=== PATIENT | female | born 1955 | race Caucasian/White ===

== ENCOUNTER 2019-10-13 14:40 | Outpatient (CLI) | payer OTHER, SELFPAY ==
--- NOTE | ~2019-10-13 | MM_ITS ---
EXAMINATION: MM screening [facility] BI w lul HISTORY: Screening mammogram TECHNIQUE: Craniocaudal and mediolateral oblique 3-D tomosynthesis images were obtained and synthetic 2-D images were generated. CAD analysis was submitted and interpreted. COMPARISON: 08/04/2018, 06/26/2017, 05/29/2016, 04/18/2015 BREAST PARENCHYMAL COMPOSITION: There are scattered areas of fibroglandular density. FINDINGS: Scattered benign-appearing calcifications are present. Also noted is a stable intramammary lymph node in the upper outer quadrant of the right breast. There is no evidence of suspicious mass, calcification, or architectural distortion to suggest malignancy in either breast. There has been no suspicious interval change. IMPRESSION: 1. No mammographic evidence of malignancy. 2. Recommend routine screening mammography in one year. BI-RADS Category 2: Benign finding(s). Reviewed, dictated and finalized at location A. L STAKER
== END 2019-10-13 14:41 | disposition home or self-care (01) ==
LOC: ANHIMG 14:44
PROVIDERS: PCP Internal Medicine; Visit Provider Obstetrics & Gynecology Gynecology
DX: Z12.31 Encounter for screening mammogram for malignant neoplasm of breast (principal)
CPT/HCPCS: 77063; 77067

== ENCOUNTER 2020-11-15 13:32 | Outpatient (CLI) | payer MEDICARE, SELFPAY ==
--- NOTE | ~2020-11-15 | NM_ITS ---
EXAMINATION: NM thyroid scan w uptake DATE: 11/16/2020 14:21 INDICATION: Hyperthyroidism. COMPARISON: Thyroid ultrasound 11/16/2020 TECHNIQUE: 0.349 mCi I-123 was administered orally. Scintigraphic images of the thyroid gland were o btained at 24 hours. Thyroid uptake was calculated by the technologist. FINDINGS: The thyroid uptake is 36% (normal 10-30%), with the right lobe measuring 26% uptake and the left 11%. There is no focal area of decreased or increased activity to suggest hypofunctioning or hyperfunctio dhara nodule. IMPRESSION: 1. Increased 24-hour iodine uptake, consistent with hyperthyroidism. Reviewed, dictated and finalized at location A. RAKE OPERATOR
== END 2020-11-15 13:33 | disposition home or self-care (01) ==
LOC: ANHIMG 13:35
DX: E05.90 Thyrotoxicosis, unspecified without thyrotoxic crisis or storm (principal)
CPT/HCPCS: 78014; A9516

== ENCOUNTER 2020-11-16 12:30 | Outpatient (CLI) | payer MEDICARE, SELFPAY ==
--- NOTE | ~2020-11-16 | US_ITS ---
EXAMINATION: US thyroid DATE: 11/16/2020 13:05 INDICATION: Hyperthyroidism. Goiter. TECHNIQUE: Multiple ultrasound images of the thyroid were obtained. COMPARISON: Neck CTA 03/07/19 FINDINGS: The right thyroid lobe measures 5.6 x 1.3 x 2.0 cm. The left thyroid lobe measures 4.2 x 1.0 x 1.4 c m. The thyroid demonstrates diffusely heterogeneous echogenicity with increased vascularity. In the right thyroid lobe, there is a 1.3 cm solid, isoechoic, wjsiu-fuhz-mqqf nodule with ill-defined jaime n without echogenic foci (TI-RADS TR3). In the left thyroid lobe, there is an 11 mm solid, isoechoic, gmmlx-liyj-chuo nodule with ill-defined margin without echogenic foci (TR3). In the left thyroid nod e lobe, there is a 9 mm solid, isoechoic, jiguf-hlde-pikf nodule with smooth margin without echogenic foci (TR3). IMPRESSION: 1. Heterogeneous thyroid with increased activity, consistent with Graves' disease. 2. Thyroid nodules, likely not clinically significant. No follow-up is needed. Reviewed, dictated and finalized at location A. ND ETL DEVELOPER IMPRESSION: 1. Heterogeneous thyroid with increased activity, consistent with Graves' disea se. 2. Thyroid nodules, likely not clinically significant. No follow-up is needed.
== END 2020-11-16 12:31 | disposition home or self-care (01) ==
DX: E05.90 Thyrotoxicosis, unspecified without thyrotoxic crisis or storm (principal); E04.2 Nontoxic multinodular goiter
CPT/HCPCS: 76536

== ENCOUNTER 2020-11-17 14:29 | Outpatient (CLI) | payer MEDICARE, SELFPAY | END 2020-11-17 14:30 | disposition home or self-care (01) | LOC: ANHCOVIDVC 14:29 | DX: Z23 Encounter for immunization (principal) | CPT/HCPCS: 0001A; 91300 ==

== ENCOUNTER 2020-12-08 14:26 | Outpatient (CLI) | payer MEDICARE, SELFPAY | END 2020-12-08 14:27 | disposition home or self-care (01) | LOC: ANHCOVIDVC 14:26 | DX: Z23 Encounter for immunization (principal) | CPT/HCPCS: 0002A; 91300 ==

== ENCOUNTER 2020-12-30 09:46 | Outpatient (CLI) | payer MEDICARE, SELFPAY ==
--- NOTE | ~2020-12-30 | DEXA_ITS ---
Bone Density Report Name: Ambar Gomes Age: 65 Sex: Female Ethnicity: White Date of : 1955 Indication: postmenopausal osteoporosis; height loss; hysterectomy; rheumatoid arthritis; Referring Provider: MARTHA SHELBY Study: Bone densitometry was performed. Exam Date: December 30, 2020 Accession number: [id number] Bone Density: Region BMD T-score Z-score Classification AP Spine (L1, L3, L4) 0.857 -1.8 0.1 Osteopenia Femoral Neck (Left) 0.539 -2.8 -1.2 Osteoporosis Total Hip (Left) 0.601 -2.8 -1.5 Osteoporosis Total Hip Bilateral Avg 0.607 -2.8 -1.5 Osteoporosis Femoral Neck (Right) 0.620 -2.1 -0.5 Osteopenia Total Hip (Right) 0.613 -2.7 -1.4 Osteoporosis World Health Organization criteria for BMD impression classify patients as: Normal (T-score at or above -1.0), Osteopenia (T-score between -1.0 and -2.5), or Osteoporosis (T-score at or below -2.5). 10-year Fracture Risk: FRAX not reported because: Some T-score for Spine Total or Hip Total or Femoral Neck at or below -2.5 Previous Exams: Region Exam Age BMD T-score BMD Change BMD Change Date g/cm2 vs Baseline vs Previous AP Spine(L1, L3, L4) 12/30/2020 65 0.857 -1.8 -0.038(-4.2%)# 0.029(3.6%)* 08/04/2018 63 0.828 -2.0 -0.067(-7.5%)# 0.018(2.2%)# 10/13/2012 57 0.810 -2.2 -0.085(-9.5%)# -0.046(-5.4%)# 08/21/2010 55 0.856 -1.8 -0.039(-4.4%)* -0.039(-4.4%)* 02/09/2008 52 0.895 -1.4 Total Hip(Left) 12/30/2020 65 0.601 -2.8 -0.121(-16.8%) -0.037(-5.8%)* 08/04/2018 63 0.639 -2.5 -0.084(-11.6%) -0.017(-2.6%)# 10/13/2012 57 0.655 -2.3 -0.067(-9.3%)# -0.067(-9.2%)# 08/21/2010 55 0.722 -1.8 -0.001(-0.1%) -0.001(-0.1%) 02/09/2008 52 0.723 -1.8 Total Hip(Right) 12/30/2020 65 0.613 -2.7 -0.123(-16.7%) -0.040(-6.2%)* 08/04/2018 63 0.653 -2.4 -0.083(-11.2%) -0.041(-5.9%)# 10/13/2012 57 0.694 -2.0 -0.042(-5.7%)# -0.030(-4.1%)# 08/21/2010 55 0.724 -1.8 -0.012(-1.6%) -0.012(-1.6%) 02/09/2008 52 0.736 -1.7 *Denotes significance at 95% confidence level, LSC for AP Spine = 0.022 g/cm2, LSC for Total Hip = 0.027 g/cm2 Clinical Information Provided by Patient: Smokes Has rheumatoid arthritis Has 3 or more alcoholic drinks per day Has used the following medications: Boniva (i.e. ibandronate), Vitamin D Has the following medical conditions: Hysterectomy Patient maximum height was 66.5 Menopause Age: 51 Onset of menses at age 10 Number of children 0
== END 2020-12-30 09:47 | disposition home or self-care (01) ==
DX: E05.90 Thyrotoxicosis, unspecified without thyrotoxic crisis or storm (principal); Z13.820 Encounter for screening for osteoporosis; Z78.0 Asymptomatic menopausal state; M81.0 Age-related osteoporosis without current pathological fracture
CPT/HCPCS: 77080

== ENCOUNTER 2020-12-31 09:21 | Emergency (ER) | payer MEDICARE, SELFPAY ==
[2020-12-31 09:28] VITALS: BP 123/87; PULSE 108; RESP 16; TEMP 37.2; O2SAT 100
--- NOTE | 2020-12-31 09:30 | ED.EAR ---
HPI - Ear Problem General Chief complaint: Ear Stated complaint: can't hear on both ears Time Seen by Provider: 12/31/20 09:30 History of Present Illness HPI Narrative: Ambar Gomes is a 65 yo female with a PMH of copd, GERD, seasonal allergies, osteoporosis, HTN, [facility] caring after use of Debrox and peroxide for over a week Related Data Home Medications Medication Instructions Recorded Confirmed alprazolam 0.25 mg tablet 0.25 mg PO DAILY PRN 07/28/19 09/21/20 esomeprazole magnesium 20 mg 20 mg PO DAILY 07/28/19 09/21/20 capsule,delayed release ibandronate 150 mg tablet 150 mg PO MONTHLY 07/28/19 09/21/20 fexofenadine 180 mg tablet 180 mg PO DAILY PRN 09/21/20 09/21/20 loratadine 10 mg tablet 10 mg PO DAILY PRN 09/21/20 09/21/20 Allergies Allergy/AdvReac Type Severity Reaction Status Date / Time Penicillins Allergy Unknown Unknown Verified 09/21/20 10:27 sulfanilamide Allergy Unknown bladder Verified 09/21/20 10:27 incontinence Review of Systems Review of Systems: Narrative: CONSTITUTIONAL: Denies fever, chills, sweats. EYES: Denies visual changes, redness, discharge. ENT: Denies rhinorrhea, congestion, sore throat, otalgia. Difficulty hearing CARDIOVASCULAR: Denies chest pain, palpitations, edema. RESPIRATORY: Denies dyspnea, wheezing, cough GASTROINTESTINAL: Denies abdominal pain, nausea, vomiting, diarrhea. GENITOURINARY: Denies dysuria, hematuria, abnormal discharge SKIN: Denies rash or itching. NEUROLOGIC: Denies numbness, or focal weakness. PSYCHIATRIC: Denies anxiety or depression. [facility] Past Medical History Medical History (Updated 12/31/20 @ 09:53 by Deloris Bolden CNP) Anxiety attack Bacterial vaginosis Chronic pain Constipation GERD (gastroesophageal reflux disease) Hernia Hypertension Nicotine dependence Raynaud's disease Rectovaginal fistula Rheumatoid arthritis Surgical History Surgical History H/O: hysterectomy Total History of colon resection 5 inches removed Family History Family History Sibling Family history of premature coronary heart disease Heart attack Mother Family history of alcoholism, Onset Age: 51 Patient's mother is Family history of liver disease Father Family history of malignant neoplasm of urinary bladder Patient's father is Other Family history of cardiovascular disease Family history of coronary artery disease Social History Social History Smoking status: Former smoker Tobacco type: cigarettes Alcohol intake: current Substance use: never Gender identity (if verbalized by the patient): Female Comments At time of signature, I agree with nursing past medical, surgical, social and family history. There is no relevant family history pertinent to the presenting complaint. Exam Narrative: Exam Narrative: GENERAL: This is a well-nourished, well-developed patient, in mild distress. HEAD: normocephalic, atraumatic. EYES: Sclera clear/white. Vision is grossly intact. EARS: External ears normal, auditory canals have white substance jammed up against the eardrum unable to visualize TMs, right worse than left. Hearing grossly intact but pt talking very loudly NOSE: External nose normal without nasal discharge, nares without redness, no rhinorrhea. THROAT: Mucous membranes moist, NECK: Neck supple, CARDIOVASCULAR: Regular rate and rhythm without murmurs, gallops, or rubs. RESPIRATORY: Coarse to auscultation. Breath sounds equal bilaterally. occ wheezes, rales, or rhonchi. GASTROINTESTINAL: Abdomen soft, SKIN: warm, intact with no suspicious lesions or rash, good texture and turgor. NEURO: awake, alert, and oriented to person, place and time. There were no obvious focal neurologic abnormalities. Steady gait
== END 2020-12-31 10:02 | disposition home or self-care (01) ==
PROVIDERS: Emergency Provider Nurse Practitioner; PCP Internal Medicine
DX: T16.2XXA Foreign body in left ear, initial encounter (principal); T16.1XXA Foreign body in right ear, initial encounter; X58.XXXA Exposure to other specified factors, initial encounter; K21.9 Gastro-esophageal reflux disease without esophagitis; I10 Essential (primary) hypertension; I73.00 Raynaud's syndrome without gangrene; M06.9 Rheumatoid arthritis, unspecified
CPT/HCPCS: 99212; G0463

== ENCOUNTER 2021-01-03 10:30 | Outpatient (CLI) | payer MEDICARE, SELFPAY ==
[2021-01-03 12:50] LABS: Free T4 Free Thyroxine 1.19 ng/mL (0.78-2.19)
[2021-01-03 13:08] LABS: Thyroid Stimulating Hormone < 0.015 uIU/mL (0.465-4.680); Total Triiodothyronine (T3) 1.56 NG/ML (0.97-1.69)
[2021-01-05 10:33] LABS: Thyrotropin Receptor Antibody 3.28 IU/L (<=2.00)
== END 2021-01-03 10:31 | disposition home or self-care (01) ==
LOC: ANHWCLAB 10:34
PROVIDERS: PCP Internal Medicine; Visit Provider Internal Medicine Endocrinology, Diabetes & Metabolism
DX: E05.90 Thyrotoxicosis, unspecified without thyrotoxic crisis or storm (principal)
CPT/HCPCS: 36415; 83519; 84439; 84443; 84480

== ENCOUNTER 2021-01-05 09:49 | Outpatient (CLI) | payer MEDICARE, SELFPAY ==
[2021-01-05 12:08] LABS: Hematocrit 41.9 % (37.0-47.0); Hemoglobin 13.9 g/dL (12.0-15.0); Mean Corpuscular HGB Conc 33.2 g/dl (32-36); Mean Corpuscular Hemoglobin 32.6 pg (26-34); Mean Corpuscular Volume 98.1 fl (80-100); Mean Platelet Volume 11.3 fl (7.4-10.4); Platelet Count Result 193 k/mm3 (150-375); Red Blood Count 4.27 M/mm3 (4.2-5.4); Red Cell Distribution Width 13.2 % (11.5-14.5); White Blood Count 8.6 K/mm3 (4.5-10.0)
== END 2021-01-05 09:50 | disposition home or self-care (01) ==
LOC: ANHWCLAB 10:03
PROVIDERS: PCP Internal Medicine; Visit Provider Internal Medicine Endocrinology, Diabetes & Metabolism
DX: D69.1 Qualitative platelet defects (principal); M81.0 Age-related osteoporosis without current pathological fracture; E05.90 Thyrotoxicosis, unspecified without thyrotoxic crisis or storm
CPT/HCPCS: 36415; 85027

== ENCOUNTER 2021-03-08 15:27 | Outpatient (CLI) | payer MEDICARE, SELFPAY ==
--- NOTE | ~2021-03-08 | MM_ITS ---
EXAMINATION: MM screening [facility] BI w lul HISTORY: Screening TECHNIQUE: Craniocaudal and mediolateral oblique 3-D tomosynthesis images were obtained and synthetic 2-D images were generated. CAD analysis was submitted and interpreted. COMPARISON: Comparison to multiple prior studies sequentially, with oldest reviewed study dated 06/09. BREAST PARENCHYMAL COMPOSITION: There are scattered areas of fibroglandular density. FINDINGS: No significant change to benign-appearing bilateral breast calcifications. There is no evid ence of suspicious mass, calcification, or architectural distortion to suggest malignancy in either b reast. There has been no suspicious interval change. IMPRESSION: 1. No mammographic evidence of malignancy. 2. Recommend routine screening mammography in one year. BI-RADS Category 2: Benign finding(s). Reviewed, dictated and finalized at location A.
== END 2021-03-08 15:28 | disposition home or self-care (01) ==
LOC: ANHIMG 15:30
PROVIDERS: PCP Internal Medicine Endocrinology, Diabetes & Metabolism; Visit Provider Obstetrics & Gynecology Gynecology
DX: Z12.31 Encounter for screening mammogram for malignant neoplasm of breast (principal)
CPT/HCPCS: 77063; 77067

== ENCOUNTER 2022-04-27 13:37 | Outpatient (CLI) | payer MEDICARE, SELFPAY ==
[2022-04-27 14:01] LABS: Albumin Level 4.9 g/dL (3.5-5.1); Anion Gap 10 mmol/L (8-16); Blood Urea Nitrogen 23 mg/dL (7-17); Calcium 9.3 mg/dL (8.4-10.2); Carbon Dioxide 24 mmol/L (22-30); Chloride 102 mmol/L (98-107); Estimated Glomerular Filt Rate > 60; Glucose 101 mg/dL (65-110); Phosphorus 4.3 mg/dL (2.5-4.5); Sodium 136 mmol/L (137-145)
[2022-04-27 14:13] LABS: Parathyroid Intact 60.2 pg/mL (7.5-53.5)
[2022-04-27 14:21] LABS: Vitamin D 25 Hydroxy 61.7 ng/mL
[2022-05-01 14:41] LABS: Thyroid Stimulating Immunoglob <89 % baseline (<140)
[2022-05-01 20:41] LABS: Triiodothyronine T3 Free 2.7 pg/mL (2.3-4.2)
== END 2022-04-27 13:38 | disposition home or self-care (01) ==
PROVIDERS: PCP Internal Medicine; Visit Provider Internal Medicine Endocrinology, Diabetes & Metabolism
DX: M81.0 Age-related osteoporosis without current pathological fracture (principal); E04.9 Nontoxic goiter, unspecified; E05.90 Thyrotoxicosis, unspecified without thyrotoxic crisis or storm
CPT/HCPCS: 36415; 80069; 82306; 83970; 84439; 84443; 84445; 84481

== ENCOUNTER 2022-06-07 14:43 | Outpatient (CLI) | payer MEDICARE, SELFPAY ==
--- NOTE | ~2022-06-07 | MM_ITS ---
EXAMINATION: MM screening [facility] BI w lul HISTORY: Screening mammogram TECHNIQUE: Craniocaudal and mediolateral oblique 3-D tomosynthesis images were obtained and synthetic 2-D images were generated. CAD analysis was submitted and interpreted. COMPARISON: 03/08/2021, 10/2019, 08/04/2018 bilateral screening mammogram examinations BREAST PARENCHYMAL COMPOSITION: There are scattered areas of fibroglandular density. FINDINGS: Again noted are multiple bilateral benign calcifications. There is no evidence of suspiciou s mass, calcification, or architectural distortion to suggest malignancy in either breast. There has been no suspicious interval change. IMPRESSION: 1. No mammographic evidence of malignancy. 2. Recommend routine screening mammography in one year. BI-RADS Category 2: Benign finding(s). Reviewed, dictated and finalized at location A.
== END 2022-06-07 14:44 | disposition home or self-care (01) ==
PROVIDERS: PCP Internal Medicine; Visit Provider Obstetrics & Gynecology Gynecology
DX: Z12.31 Encounter for screening mammogram for malignant neoplasm of breast (principal)
CPT/HCPCS: 77063; 77067

== ENCOUNTER 2022-11-15 12:51 | Outpatient (CLI) | payer MEDICARE, SELFPAY ==
[2022-11-15 17:24] LABS: Albumin Level 4.9 g/dL (3.5-5.1); Anion Gap 5 mmol/L (8-16); Blood Urea Nitrogen 20 mg/dL (7-17); Calcium 9.4 mg/dL (8.4-10.2); Carbon Dioxide 29 mmol/L (22-30); Chloride 102 mmol/L (98-107); Estimated Glomerular Filt Rate > 60; Glucose 104 mg/dL (65-110); Phosphorus 4.1 mg/dL (2.5-4.5); Potassium 4.2 mmol/L (3.4-5.0); Sodium 136 mmol/L (137-145)
[2022-11-15 17:54] LABS: Thyroid Stimulating Hormone 0.788 uIU/mL (0.465-4.680)
[2022-11-15 18:22] LABS: Free T4 Free Thyroxine 0.85 ng/mL (0.78-2.19); Vitamin D 25 Hydroxy 40.8 ng/mL
== END 2022-11-15 12:52 | disposition home or self-care (01) ==
LOC: ANHWCLAB 12:52
PROVIDERS: PCP Internal Medicine; Visit Provider Internal Medicine Endocrinology, Diabetes & Metabolism
DX: R79.89 Other specified abnormal findings of blood chemistry (principal); E05.90 Thyrotoxicosis, unspecified without thyrotoxic crisis or storm; M81.0 Age-related osteoporosis without current pathological fracture
CPT/HCPCS: 36415; 80069; 82306; 83970; 84439; 84443

== ENCOUNTER 2023-01-11 14:12 | Outpatient (CLI) | payer MEDICARE, SELFPAY ==
--- NOTE | ~2023-01-11 | DEXA_ITS ---
Bone Density Report Name: SHANTELL GREEN Age: 67 Sex: Female Ethnicity: White Date of : 1955 Indication: postmenopausal osteoporosis; height loss; inflammatory bowel disease; prior fracture; hysterectomy; rheumatoid arthritis; Referring Provider: NIKITA MERCADO Study: Bone densitometry was performed. Exam Date: January 11, 2023 Accession number: [id number] Bone Density: Region BMD T-score Z-score Classification AP Spine(L1, L3, L4) 0.882 -1.6 0.4 Osteopenia Femoral Neck (Left) 0.555 -2.7 -1.0 Osteoporosis Total Hip (Left) 0.630 -2.6 -1.2 Osteoporosis Femoral Neck (Right) 0.631 -2.0 -0.3 Osteopenia Total Hip (Right) 0.655 -2.4 -1.0 Osteopenia Total Hip Mean 0.643 -2.5 -1.1 Osteoporosis World Health Organization criteria for BMD impression classify patients as: Normal (T-score at or above -1.0), Osteopenia (T-score between -1.0 and -2.5), or Osteoporosis (T-score at or below -2.5). 10-year Fracture Risk: FRAX not reported because: Some T-score for Spine Total or Hip Total or Femoral Neck at or below -2.5 Previous Exams: Region Exam Age BMD T-score BMD Change BMD Change Date g/cm2 vs Baseline vs Previous AP Spine (L1,L3-L4) 01/11/2023 67 0.882 -1.6 0.055 (6.6%)* 0.025 (3.0%)* 12/30/2020 65 0.857 -1.8 0.029 (3.6%)* 0.029 (3.6%)* 08/04/2018 63 0.828 -2.0 Total Hip(Left) 01/11/2023 67 0.630 -2.6 -0.008 (-1.3%) 0.029 (4.8%)* 12/30/2020 65 0.601 -2.8 -0.037 (-5.8%) -0.037 (-5.8%) 08/04/2018 63 0.639 -2.5 Total Hip(Right) 01/11/2023 67 0.655 -2.4 0.002 (0.3%) 0.042 (6.9%)* 12/30/2020 65 0.613 -2.7 -0.040 (-6.2%) -0.040 (-6.2%) 08/04/2018 63 0.653 -2.4 *Denotes significance at 95% confidence level, LSC for AP Spine = 0.022 g/cm2, LSC for Total Hip = 0.027 g/cm2 Clinical Information Provided by Patient: Has had a low trauma fracture Smokes Has rheumatoid arthritis Has 3 or more alcoholic drinks per day Has used the following medications: Boniva (i.e. ibandronate), Prolia (i.e. denosumab) Has the following medical conditions: Inflammatory bowel diseases, Hysterectomy Patient maximum height was 66.5 Menopause Age: 51 Drinks caffeinated beverages Onset of menses at age 10 Number of children 0 Impression: The patient has established osteoporosis, based on the Left Femoral Neck T-score and the existence of a prior fracture. The patient has risk factors, including: smoking, excessive al
== END 2023-01-11 14:13 | disposition home or self-care (01) ==
LOC: ANHIMG 14:13
PROVIDERS: PCP Internal Medicine; Visit Provider Internal Medicine Endocrinology, Diabetes & Metabolism
DX: M81.0 Age-related osteoporosis without current pathological fracture (principal); M85.88 Other specified disorders of bone density and structure, other site; M85.851 Other specified disorders of bone density and structure, right thigh
CPT/HCPCS: 77080

== ENCOUNTER 2023-01-30 08:05 | Outpatient (CLI) | payer MEDICARE, SELFPAY ==
[2023-01-30 13:09] LABS: Basophils Percent Auto 0.4 % (0.2-1.2); Eosinophils Absolute Auto 0.2 K/mm3 (0-0.3); Eosinophils Percent Auto 2.3 % (0-4.4); Hematocrit 41.3 % (37.0-47.0); Hemoglobin 13.4 g/dL (12.0-15.0); Immature Granulocyte Absolute 0.04 K/mm3 (0.00-0.031); Immature Granulocyte Percent A 0.4 % (0-0.5); Lymphocytes Absolute Auto 2.06 K/mm3 (0.9-3.2); Lymphocytes Percent Auto 22.3 % (18.3-44.2); Mean Corpuscular HGB Conc 32.4 g/dl (32-36); Mean Corpuscular Hemoglobin 32.4 pg (26-34); Mean Platelet Volume 11.2 fl (7.4-10.4); Monocytes Absolute Auto 0.9 K/mm3 (0.1-0.6); Monocytes Percent Auto 9.7 % (2.6-8.5); Neutrophils Percent Auto 64.9 % (45.5-73.1); Platelet Count Result 255 k/mm3 (150-375); Red Blood Count 4.13 M/mm3 (4.2-5.4); Red Cell Distribution Width 14.6 % (11.5-14.5); White Blood Count 9.2 K/mm3 (4.5-10.0)
[2023-01-30 13:28] LABS: Alanine Aminotransferase 19 U/L (6-35); Albumin Level 4.6 g/dL (3.5-5.1); Alkaline Phosphatase 60 U/L (38-126); Anion Gap 4 mmol/L (8-16); Aspartate Amino Transferase 40 U/L (14-36); Bilirubin,Total 0.8 mg/dL (0.2-1.3); Blood Urea Nitrogen 17 mg/dL (7-17); Calcium 9.7 mg/dL (8.4-10.2); Carbon Dioxide 30 mmol/L (22-30); Chloride 106 mmol/L (98-107); Cholesterol 180 mg/dL (0-200); Estimated Glomerular Filt Rate > 60; Glucose 81 mg/dL (65-110); HDL Direct 94 mg/dL; Potassium 4.9 mmol/L (3.4-5.0); Sodium 140 mmol/L (137-145); Triglycerides 74 mg/dL (<150)
[2023-01-30 13:49] LABS: LDL Cholesterol Direct 73 mg/dL
== END 2023-01-30 08:06 | disposition home or self-care (01) ==
LOC: ANHGOSHLAB 08:06
PROVIDERS: PCP Internal Medicine; Visit Provider Nurse Practitioner
DX: E78.5 Hyperlipidemia, unspecified (principal); I10 Essential (primary) hypertension
CPT/HCPCS: 36415; 80053; 80061; 85025

== ENCOUNTER 2023-04-18 13:54 | Outpatient (CLI) | payer MEDICARE, SELFPAY ==
--- NOTE | ~2023-04-18 | XR_ITS ---
EXAM: XR mandible min 4V DATE: 04/18/2023 14:24 HISTORY: rule out osteonecrosis of the jaw. RT SIDE PAIN WORSE . COMPARISON: None available. FINDINGS: Normal mineralization. No fracture or dislocation. No lytic or blastic lesion. The aerated spaces are clear. The orbits are intact and symmetric. Dental restorations. The TMJs are partially o bscured. No erosion or periosteal change. Soft tissues within normal limits. IMPRESSION: Partially obscured TMJs. Otherwise normal mandible radiograph findings. This patient may benefit from CT of the mandible given its superior evolution and anatomic visualization. Reviewed, dictated and finalized at location K. IMPRESSION: Partially obscured TMJs. Otherwise normal mandible radiograph findings. This pa tient may benefit from CT of the mandible given its superior evolution and rosa omic visualization.
== END 2023-04-18 13:55 | disposition home or self-care (01) ==
PROVIDERS: PCP Internal Medicine; Visit Provider Internal Medicine Endocrinology, Diabetes & Metabolism
DX: R68.84 Jaw pain (principal)
CPT/HCPCS: 70110

== ENCOUNTER → 2023-04-23 10:37 | Outpatient (CLI) | payer MEDICARE, SELFPAY ==
--- NOTE | ~2023-04-23 | CT_ITS ---
EXAMINATION: CT facial bones wo con DATE: 04/23/2023 10:49 INDICATION: Right jaw osteonecrosis. TECHNIQUE: Computed tomography (CT) of the facial bones and maxillofacial region was performed withou t intravenous contrast. Automated exposure control and iterative reconstruction technique were employ ed. The dose-length product was 291.04 mGy-cm. COMPARISON: Mandible radiographs 04/18/2023, neck CT 03/07/2019 FINDINGS: There is mucosal thickening in the paranasal sinuses. There is rightward deviation of the n lj septum. No fracture. There is severe osteoarthritis of right temporomandibular joint and mild os teoarthritis of left temporomandibular joint. IMPRESSION: 1. No evidence of osteonecrosis. 2. Severe right temporomandibular joint osteoarthritis, worsened from 03/07/19. Reviewed, dictated and finalized at location A.
== END ==
PROVIDERS: PCP Internal Medicine; Visit Provider Internal Medicine Endocrinology, Diabetes & Metabolism
DX: R68.84 Jaw pain (principal); M19.09 Primary osteoarthritis, other specified site
CPT/HCPCS: 70486

== ENCOUNTER 2023-10-07 13:17 | Outpatient (CLI) | payer MEDICARE, SELFPAY ==
[2023-10-07 19:09] LABS: Thyroid Stimulating Hormone < 0.015 uIU/mL (0.465-4.680)
[2023-10-07 22:11] LABS: Alanine Aminotransferase 130 U/L (6-35); Alkaline Phosphatase 78 U/L (38-126); Anion Gap 8 mmol/L (8-16); Aspartate Amino Transferase 134 U/L (14-36); Bilirubin,Total 0.7 mg/dL (0.2-1.3); Blood Urea Nitrogen 24 mg/dL (7-17); Calcium 9.7 mg/dL (8.4-10.2); Carbon Dioxide 26 mmol/L (22-30); Chloride 103 mmol/L (98-107); Estimated Glomerular Filt Rate > 60; Glucose 106 mg/dL (65-110); Potassium 4.1 mmol/L (3.4-5.0); Sodium 137 mmol/L (137-145)
[2023-10-07 22:27] LABS: Free T4 Free Thyroxine 1.57 ng/mL (0.78-2.19)
== END 2023-10-07 13:18 | disposition home or self-care (01) ==
LOC: ANHGOSHLAB 13:21
PROVIDERS: Clinical Nurse Specialist; PCP Internal Medicine; Visit Provider Internal Medicine Endocrinology, Diabetes & Metabolism
DX: R74.8 Abnormal levels of other serum enzymes (principal); E05.90 Thyrotoxicosis, unspecified without thyrotoxic crisis or storm
CPT/HCPCS: 36415; 80053; 84439; 84443

== ENCOUNTER 2023-10-29 08:18 | Outpatient (CLI) | payer MEDICARE, SELFPAY ==
[2023-10-29 14:59] LABS: Alanine Aminotransferase 104 U/L (6-35); Albumin Level 4.3 g/dL (3.5-5.1); Alkaline Phosphatase 81 U/L (38-126); Anion Gap 7 mmol/L (8-16); Aspartate Amino Transferase 105 U/L (14-36); Bilirubin,Total 0.7 mg/dL (0.2-1.3); Blood Urea Nitrogen 18 mg/dL (7-17); Calcium 9.8 mg/dL (8.4-10.2); Carbon Dioxide 26 mmol/L (22-30); Chloride 106 mmol/L (98-107); Estimated Glomerular Filt Rate > 60; Glucose 88 mg/dL (65-110); Potassium 3.5 mmol/L (3.4-5.0); Sodium 139 mmol/L (137-145)
[2023-10-29 20:24] LABS: Free T4 Free Thyroxine 1.51 ng/mL (0.78-2.19)
[2023-10-29 20:36] LABS: Thyroid Stimulating Hormone < 0.015 uIU/mL (0.465-4.680); Total Triiodothyronine (T3) 2.04 NG/ML (0.97-1.69)
== END 2023-10-29 08:19 | disposition home or self-care (01) ==
PROVIDERS: PCP Internal Medicine; Visit Provider Internal Medicine
DX: E05.00 Thyrotoxicosis with diffuse goiter without thyrotoxic crisis or storm (principal); M81.0 Age-related osteoporosis without current pathological fracture; E04.2 Nontoxic multinodular goiter
CPT/HCPCS: 36415; 80053; 84439; 84443; 84480

== ENCOUNTER 2023-11-07 10:04 | Outpatient (CLI) | payer MEDICARE, SELFPAY ==
--- NOTE | ~2023-11-07 | MM_ITS ---
EXAMINATION: MM screening [facility] BI w lul HISTORY: Screening TECHNIQUE: Craniocaudal and mediolateral oblique 3-D tomosynthesis images were obtained and synthetic 2-D images were generated. CAD analysis was submitted and interpreted. COMPARISON: Comparison to multiple prior studies sequentially, with oldest reviewed study dated 06/06. BREAST PARENCHYMAL COMPOSITION: Not dense: There are scattered areas of fibroglandular density. FINDINGS: Stable bilateral breast asymmetries. There are benign-appearing bilateral breast calcificat ions. There is no evidence of suspicious mass, calcification, or architectural distortion to suggest malignancy in either breast. There has been no suspicious interval change. IMPRESSION: 1. No mammographic evidence of malignancy. 2. Recommend routine screening mammography in one year. BI-RADS Category 2: Benign finding(s). Reviewed, dictated and finalized at location A. NICAL SOLUTION ARCHITECT
== END 2023-11-07 10:05 | disposition home or self-care (01) ==
PROVIDERS: PCP Internal Medicine; Visit Provider Obstetrics & Gynecology Gynecology
DX: Z12.31 Encounter for screening mammogram for malignant neoplasm of breast (principal)
CPT/HCPCS: 77063; 77067

== ENCOUNTER 2024-03-02 07:23 | Emergency (ER) | payer MEDICARE, SELFPAY ==
--- NOTE | ~2024-03-02 | XR_ITS ---
EXAMINATION: 1. XR wrist LT min 3V 2. XR hand LT min 3V DATE: 03/02/2024 08:47 INDICATION: Left hand and wrist pain and swelling. TECHNIQUE: 4 views of left wrist and 3 views of left hand were obtained. COMPARISON: None. FINDINGS: LEFT WRIST: Bone alignment is normal. No acute fracture. There is chronic heterotopic ossification di stal to the ulnar styloid. There is mild osteoarthritis of triscaphe joint and moderate osteoarthriti s of first carpometacarpal joint. There are loose bodies in the dorsum of the carpus. LEFT HAND: Alignment is normal. No fracture. There is mild osteoarthritis of many of the interphalang eal joints. There is moderate osteoarthritis of third distal interphalangeal joint. There are dystrop hic calcifications in the distal third and fourth digits. IMPRESSION: 1. Polyarticular osteoarthritis. 2. Loose bodies in the dorsum of the carpus. Reviewed, dictated and finalized at location A. IMPRESSION: 1. Polyarticular osteoarthritis. 2. Loose bodies in the dorsum of the carpus.
[2024-03-02 07:27] VITALS: BP 154/78; PULSE 94; RESP 16; TEMP 36.7; O2SAT 100
[2024-03-02 09:10] LABS: Basophils Percent Auto 0.2 % (0.2-1.2); Eosinophils Absolute Auto 0.1 K/mm3 (0-0.3); Eosinophils Percent Auto 0.8 % (0-4.4); Hematocrit 40.7 % (37.0-47.0); Hemoglobin 13.7 g/dL (12.0-15.0); Immature Granulocyte Absolute 0.02 K/mm3 (0.00-0.031); Immature Granulocyte Percent A 0.2 % (0-0.5); Lymphocytes Absolute Auto 1.52 K/mm3 (0.9-3.2); Lymphocytes Percent Auto 14.3 % (18.3-44.2); Mean Corpuscular HGB Conc 33.7 g/dl (32-36); Mean Corpuscular Hemoglobin 32.4 pg (26-34); Mean Corpuscular Volume 96.2 fl (80-100); Mean Platelet Volume 10.5 fl (7.4-10.4); Monocytes Percent Auto 9.7 % (2.6-8.5); Neutrophils Percent Auto 74.8 % (45.5-73.1); Platelet Count Result 166 k/mm3 (150-375); Red Blood Count 4.23 M/mm3 (4.2-5.4); Red Cell Distribution Width 14.6 % (11.5-14.5); White Blood Count 10.6 K/mm3 (4.5-10.0)
[2024-03-02 09:20] LABS: Alanine Aminotransferase 51 U/L (6-35); Albumin Level 4.6 g/dL (3.5-5.1); Alkaline Phosphatase 91 U/L (38-126); Anion Gap 6 mmol/L (4-12); Aspartate Amino Transferase 49 U/L (14-36); Bilirubin,Total 1.2 mg/dL (0.2-1.3); Blood Urea Nitrogen 14 mg/dL (7-17); Calcium 9.8 mg/dL (8.4-10.2); Carbon Dioxide 27 mmol/L (22-30); Chloride 106 mmol/L (98-107); Estimated CRCL calculation 71 ml/min; Estimated Glomerular Filt Rate > 60; Glucose 111 mg/dL (65-110); Potassium 4.2 mmol/L (3.4-5.0); Sodium 139 mmol/L (137-145)
--- NOTE | 2024-03-02 09:32 | ED.GENADULT ---
HPI - General Adult General Chief complaint: Wound/Laceration Stated complaint: wound to left wrist Time Seen by Provider: 03/02/24 07:26 History of Present Illness HPI narrative: 68-year-old female presented to the emergency department for evaluation for left wrist and hand pain. Patient noticed the pain and swelling yesterday. Patient denies any falls or injuries. Patient does have history of rheumatoid arthritis. Patient does have mild edema and erythema of the hand and wrist. Patient does have some mild erythema across the dorsum of the right wrist. Related Data Home Medications Medication Instructions Recorded Confirmed alprazolam 0.25 mg tablet (Xanax) 0.25 mg PO DAILY PRN Anxiety 07/28/19 01/01/24 loratadine 10 mg tablet (Claritin) 10 mg PO DAILY PRN Allergic 09/21/20 01/01/24 Symptoms cholecalciferol (vitamin D3) 25 25 mcg PO DAILY 01/03/21 01/01/24 mcg (1,000 unit) tablet calcium carbonate (Calcium 500) 1,000 mg PO DAILY 01/01/24 01/01/24 Allergies Allergy/AdvReac Type Severity Reaction Status Date / Time Penicillins Allergy Unknown Unknown Verified 03/02/24 07:31 sulfanilamide Allergy Unknown bladder Verified 03/02/24 07:31 incontinence metoprolol AdvReac Hypertensio Verified 03/02/24 07:31 n Review of Systems Review of Systems: All systems reviewed & are unremarkable except as noted in HPI and below PMFSH Past Medical History Medical History (Updated 03/02/24 @ 09:34 by Prosper Menjivar MD) Anxiety attack Bacterial vaginosis Chronic pain Constipation GERD (gastroesophageal reflux disease) Hernia Hypertension Nicotine dependence Raynaud's disease Rectovaginal fistula Rheumatoid arthritis Surgical History Surgical History H/O: hysterectomy Total History of colon resection 5 inches removed Family History Family History Sibling Family history of premature coronary heart disease Heart attack Mother Family history of alcoholism, Onset Age: 51 Patient's mother is Family history of liver disease Father Family history of malignant neoplasm of urinary bladder Patient's father is Other Family history of cardiovascular disease Family history of coronary artery disease Social History Social History Smoking packs per day: 0.5 Smoking cigarettes per day: 10.0 Years smoked: 45 Smoking pack-years: 22.50 Smoking status: Current every day smoker Tobacco type: cigarettes Alcohol intake: current Alcohol use details: Pt drinks 2 glasses of wine nightly. Substance use: never Lack of Transportation: No Lack of Food: Never True Current Housing: I Have Housing Concerned About Future Housing: No Difficulty Paying Gas/Electric Bills: No Difficulty Paying for Meds: No Currently Unemployed: No Education: High School Diploma/GED Difficulty w/ Childcare or Family Care: No Gender identity (if verbalized by the patient): Female Spiritual care concerns: No Exam Narrative: APPEARANCE: Well appearing, no pain, no distress, well-nourished. HEAD: normocephalic, atraumatic. EYES: PERRLA/EOMI, conjunctivae clear. NOSE: Normal no drainage EARS:TMS clear with good light reflex. THROAT: Pharynx clear, no exudate. NECK: Supple. No adenopathy, no masses. RESPIRATORY: Airway patent, respirations nonlabored. Clear to auscultation bilaterally, no rales, rhonchi, wheezing. CARDIOVASCULAR: Regular rate and rhythm without murmurs rubs or gallops. ABDOMINAL: Soft, nontender, nondistended, normal bowel sounds MUSCULOSKELETAL: Wrist and hand pain NEURO: Alert. Cranial nerves II through XII intact. Good gait. Good coordination SKIN: Warm, dry. Normal Color Course Vital Signs Vital signs: Vital Signs Temperature 98.1 F 03/02/24 07:27 Pulse Rate 94
== END 2024-03-02 09:52 | disposition home or self-care (01) ==
PROVIDERS: Emergency Provider Emergency Medicine; PCP Internal Medicine
DX: L03.114 Cellulitis of left upper limb (principal); M06.9 Rheumatoid arthritis, unspecified; I10 Essential (primary) hypertension; F17.210 Nicotine dependence, cigarettes, uncomplicated
CPT/HCPCS: 36415; 73110; 73130; 80053; 85025; 99283

== ENCOUNTER 2024-04-29 11:06 | Outpatient (CLI) | payer MEDICARE, SELFPAY ==
[2024-04-29 13:44] LABS: Creatinine Urine 66.8 mg/dL
[2024-04-29 13:50] LABS: Alanine Aminotransferase 42 U/L (6-35); Albumin Level 4.2 g/dL (3.5-5.1); Alkaline Phosphatase 76 U/L (38-126); Anion Gap 7 mmol/L (4-12); Aspartate Amino Transferase 79 U/L (14-36); Bilirubin,Total 0.7 mg/dL (0.2-1.3); Blood Urea Nitrogen 12 mg/dL (7-17); Calcium 9.8 mg/dL (8.4-10.2); Carbon Dioxide 28 mmol/L (22-30); Chloride 103 mmol/L (98-107); Estimated Glomerular Filt Rate > 60; Glucose 110 mg/dL (65-110); Sodium 138 mmol/L (137-145)
[2024-04-29 14:09] LABS: Creatinine 24 Hour Urine 0.6 gm/24 (0.8-1.8); Total Volume 24 Hour Urine 1000 ml
[2024-04-29 14:22] LABS: Thyroid Stimulating Hormone < 0.015 uIU/mL (0.465-4.680)
[2024-04-29 14:41] LABS: Free T4 Free Thyroxine 1.43 ng/mL (0.78-2.19)
[2024-05-04 10:26] LABS: Total Volume 1000 mL
== END 2024-04-29 11:07 | disposition home or self-care (01) ==
PROVIDERS: PCP Internal Medicine; Visit Provider Internal Medicine Endocrinology, Diabetes & Metabolism
DX: E05.90 Thyrotoxicosis, unspecified without thyrotoxic crisis or storm (principal); R79.89 Other specified abnormal findings of blood chemistry; M81.0 Age-related osteoporosis without current pathological fracture
CPT/HCPCS: 36415; 80053; 81050; 82340; 82570; 83970; 84439; 84443

== ENCOUNTER 2024-05-18 08:39 | Outpatient (CLI) | payer MEDICARE, SELFPAY ==
--- NOTE | ~2024-05-18 | US_ITS ---
EXAMINATION: US abdomen limited DATE: 05/18/2024 08:53 INDICATION: Hepatic steatosis. TECHNIQUE: Multiple grayscale and Doppler ultrasound images of the abdomen were obtained. COMPARISON: CT abdomen and pelvis 08/21/2019 FINDINGS: The visualized portions of the head and body of the pancreas are normal. The liver is yaya l without focal lesion. No liver surface nodularity. There is normal flow in main portal vein. The ga llbladder is normal in size. No gallstones or gallbladder wall thickening. There is no sonographic Mu rphy's sign. The common duct is normal and measures 6 mm. IMPRESSION: 1. Normal right upper quadrant ultrasound. Reviewed, dictated and finalized at location A.
== END 2024-05-18 08:40 | disposition home or self-care (01) ==
LOC: GOSHIMG 08:40
PROVIDERS: PCP Internal Medicine; Visit Provider Internal Medicine Endocrinology, Diabetes & Metabolism
DX: K76.0 Fatty (change of) liver, not elsewhere classified (principal)
CPT/HCPCS: 76705

== ENCOUNTER 2024-05-28 11:40 | Outpatient (NON) | payer MEDICARE, SELFPAY ==
[2024-05-28 14:48] LABS: Creatinine Urine 53.8 mg/dL
[2024-05-28 21:25] LABS: Creatinine 24 Hour Urine 0.8 gm/24 (0.8-1.8); Total Volume 24 Hour Urine 1500 ml
[2024-06-05 08:40] LABS: Total Volume 1500 mL
== END 2024-05-28 11:41 | disposition home or self-care (01) ==
LOC: ANHGOSHLAB 11:42
PROVIDERS: PCP Internal Medicine; Visit Provider Internal Medicine Endocrinology, Diabetes & Metabolism
DX: E05.90 Thyrotoxicosis, unspecified without thyrotoxic crisis or storm (principal); R79.89 Other specified abnormal findings of blood chemistry; M18.0 Bilateral primary osteoarthritis of first carpometacarpal joints
CPT/HCPCS: 81050; 82340; 82570

== ENCOUNTER 2024-06-22 08:17 | Outpatient (CLI) | payer MEDICARE, SELFPAY ==
[2024-06-22 15:02] LABS: Free T4 Free Thyroxine 0.98 ng/mL (0.78-2.19)
[2024-06-22 15:06] LABS: Thyroid Stimulating Hormone 0.023 uIU/mL (0.465-4.680)
== END 2024-06-22 08:18 | disposition home or self-care (01) ==
PROVIDERS: PCP Internal Medicine; Visit Provider Internal Medicine Endocrinology, Diabetes & Metabolism
DX: E05.90 Thyrotoxicosis, unspecified without thyrotoxic crisis or storm (principal); R74.8 Abnormal levels of other serum enzymes; E05.00 Thyrotoxicosis with diffuse goiter without thyrotoxic crisis or storm
CPT/HCPCS: 36415; 84439; 84443

== ENCOUNTER 2024-10-29 11:54 | Outpatient (CLI) | payer MEDICARE, SELFPAY ==
--- OUTSIDE RECORDS SUMMARY | 2024-10-29 12:01 | XMS_ITS | Clinical Summary ---
Author Organization [facility] Address [address] [place] [address] Care Team Providers Care Spool Hauler Name Role Phone Unavailable Primary Care Provider Unavailabl e Allergies Active Allergy Reactions Criticality Noted Date Comments Penicillins Anaphylaxis High 10/26/2013 Medications albuterol sulfate HFA 108 (90 Base) MCG/ACT inhaler Inhale 1 puff into the lungs daily. 0 Active ALPRAZolam 0.25 MG tablet Take 0.25 mg by mouth daily. 1 Active fluticasone propionate 50 MCG/ACT nasal spray USE 1 2 SPRAYS IN EACH NOSTRIL ONCE DAILY 0 Active Loratadine 10 MG Cap Take by mouth daily. Active lisinopril-hydroC HLOROthiazide 20-12.5 MG tabletIndications :Essential hypertension Take 1 tablet by mouth daily. 30 tablet 1 1 Active methIMAzole 5 MG tablet 1 Active clindamycin 150 MG capsule 1 Active BETAMETHASONE DIPROPIONATE 0.05 % creamIndications: Spider bite wound, undetermined intent, initial encounter APPLY TO AFFECTED AREA TWICE A DAY 45 g 1 Active Active Problems Problem Noted Date Diagnosed Date Primary insomnia 01/20/2021 Thrombocytopenia 10/31/2020 Hyperthyroidism 10/31/2020 Prediabetes 10/31/2020 Colovaginal fistula 07/30/2019 Granuloma annulare 07/15/2019 Anxiety 09/11/2018 Essential hypertension 09/11/2018 PVC's (premature ventricular contractions) 09/11 Raynaud's phenomenon 09/11/2018 Tobacco abuse 09/11/2018 Resolved Problems Problem Noted Date Diagnosed Date Resolved Date Nausea and vomiting 08/26/2019 10/31/19 21 SBO (small bowel obstruction ) ([facility]) 08/21/2019 10/31/2020 Post-operative state 07/30/2019 021 Sigmoid diverticulitis 07/30/201910/31 Palpitations 09/11/2018 10/31/2020 Immunizations Name Administration Dates Next Due Fluzone High Dose - >Age 65 (Prefilled Syringe) 07/05/2020 Influenza Adult (Generic) 08/22/2019,07/14/2018 Family History Medical History Relation Comments Cancer Father bladder cirrhosis Mother Relation Status Comments Father Mother Social History Tobacco Use Types Packs/Day Years Used Date Smoking Tobacco: Every Day Cigarettes Smokeless Tobacco: Never Tobacco Cessation:Ready to Q uit: No; Counseling Given: Yes Comments:counseled by Dr Reich Alcohol Use Standard Drinks/Week Comments Yes 3.3 (1 standard drink = 0.6 oz p ure alcohol) PHQ-2 Answer Date Recorded PHQ-2 Score - If the patient scores above 3, please move on to questions 3-9 0 10/28/2020 Comments No Sex and Gender Information Value Date Recorded Sex Assigned at Not on file Legal Sex Female 1:51 PM CDT Gender Identity Not on file Sexual Orientation Not on file Last Filed Vital Signs Vital Sign Reading Time Taken Comments Blood Pressure 110/60 04/19/2021 10:58 AM CDT Pulse 76 04/19/2021 10:58 AM CDT Temperature 36.7 C (98.1 F) 04/19/2021 10:58 AM CDT Respiratory Rate 16 04/19/2021 10:58 AM CDT Oxygen Saturation 97% 04/19/2021 10:58 AM CDT Inhaled Oxygen Concentration - - Weight 50.8 kg (112 lb) 04/19/2021 10:58 AM CDT Height 168.9 cm (5' 6.5 ) 04/19/2021 10:58 AM CD T Body Mass Index 17.81 04/19/2021 10:58 AM CDT Plan of Treatment Health Maintenance Due Date Last Done Comments Pneumococcal Vaccine: 65+ Years (1 of 2 - PCV) 1961 PHQ-2 (Physician [place]) 1967 DTaP, Tdap and Td Vaccines ( 1 - Tdap) 1974 Zoster Vaccines (1 of 2) 2005 Annual Medicare Wellness Visit 2020 COVID-19 Vaccine (4 - 2023-2 5 season) 2024 07/25/2021, 12/08/2020, 11/17/2020 Mammogram Screening 06/07/2024 06/07/2022, 10/13/2020 Influenza Adult (#1) 2024 07/05/2020, 08/22/2019, 07/14/2018 PHQ-2 (Physician [place]) 09/09/2024 Colorectal Cancer Screening Colonoscopy (10 Years) 01/09/2026 01/10/2016, 10/03/2010 RSV Immunization or 60+ Years (1 - 1-dose 75+ series) 2030 Dexa Scan (General) Completed 12/30/2020, 12/30/2020, 08/04/2018 Hepatitis C Completed 01/20/2021 Meningococcal B Vaccine Aged Out No l onger eligible based on patient's age to complete this topic Meningococcal Vaccine Aged Out No radha amanda eligible based on patient's age to complete this topic RSV Immunizations Under 20 Months Aged Out No longer eligible b ased on patient's age to complete this topic Procedures Procedure Name Priority Date/Time Associated Diagnosis Comments MAMMOGRAM GENERIC (SCAN ORDER) 06/07/2022 HEPATITIS C ANTIBODY Routine 01/20/2021 11:53 AM CDT Encounter for hepatitis C screening test for low risk patient BONE DENSITY GENERIC (SCAN ORDER) 12/30/2020 COLONOSCOPY GENERIC (SCAN ORDER) 01/10/2016 from Last 3 Months or Most Recently Relevant to Health Maintenance Results * MAMMOGRAM GENERIC (06/07/2022) Anatomical Region Laterality Modality Other 06/07/2022 [facility] Scanned SCANNING Final Resu lt * (ABNORMAL) HEPATITIS C ANTIBODY (01/20/2021 11:53 AM CDT) HEPATITIS C AB REACTIVE( A) NON-REACT GLYNN 01/21/2021 7:51 PM CDT [facility] Comment: PRESUMPTIVE EVIDENCE OF ANTIBODIES TO HCV. CONSIDER ORDERING HCV RNA DETECTION AND QUANTIFICATION BY RT-PCR ANALYSIS ON A NEW SPECIMEN. 01/20/2021 11:5 3 AM CDT us Benjy Reich MD LABORATORY Final Result [facility] [address] [place] [address], [place] [phone] [id number] * BONE DENSITY GENERIC (12/30/2020) Anatomical Region Laterality Modality Other 12/30/2020 Narrative 12/30/2020 Ordered by an unspecified provider. us Documents Scanned SCANNING Final Result * COLONOSCOPY GENERIC (01/10/2016) 01/10/2016 Narrative 01/10/2016 Ordered by an unspecified provider. us Documents Scanned SCANNING Final Result from Last 3 Months or Most Recently Relevant to Health Maintenance Insurance [employer]
--- OUTSIDE RECORDS SUMMARY | 2024-10-29 12:01 | XMS_ITS | Encounter Summary ---
Author Organization [facility] Address [address] [place] [address] Care Team Providers Care Ring Conductor Name Role Phone Benjy Reich MD Primary Care Provider [phone] Encounter Details Date Type Department Care Team (Latest Contact Info) Description 02/02/2022 LLUSTRE Message Enc [facility] Medical [facility] Multispecialty [facility] - [address] [address] [address] [place] [address] Maira, [facility] Provider Needs scheduled - Annual Physical Social History Tobacco Use Types Packs/Day Years Used Date Smoking Tobacco: Every Day Cigarettes Smokeless Tobacco: Never Comments:counseled by Dr Melinda lanier Alcohol Use Standard Drinks/Week Comments Yes 3.3 [...] on file Sexual Orientation Not on file documented as of this encounter Plan of Treatment Not on file documented as of this encounter Visit Diagnoses Not on filedocumented in this encounter Additional Health Concerns Assessment Noted Time PHQ-9 Depression Total Score: 3 10/28/19 21 2:21 PM LEAD SUPPLY WORKER documented as of this encounter Care Teams Ring Conductor Relationship Specialty Start Date End Date Benjy Reich MD [address] [facility] [address] [place] [address] PCP - General INTERNAL MEDICINE 11/21/20 07/30/23 documented as of this encounter
--- OUTSIDE RECORDS SUMMARY | 2024-10-29 12:01 | XMS_ITS | Clinical Summary ---
Author Organization [facility] Address [address] [place] [address] Care Team Providers Care Scoop Machine Operator Name Role Phone Julian Jenkins DO Primary Care Provider [phone] Source Comments [facility],non-owned Affiliates and Associated Physician Practices is amultiple site organization consisting of ambulatory clinics and hospital sitesin [place], [place]. This disclosure is being madepursuant to the Care Everywhere program and may not contain all information available regarding this patient. Last updated 18.[facility] Allergies Active Allergy Reactions Criticality Noted Date Comments Penicillins Anaphylaxis High 10/26/2013 Medications * Be aware that medications may not be up to date on this document. Alwaysverify current medications with the patient. Medication Sig Dispensed Refills Start Date End Date Status esomeprazole (NEXIUM) 10 MG packet Take by mouth. 07/10/2017 Active BONIVA 150 MG tablet Take 150 mg by mouth every 30 days 05/29/2018 Active ALPRAZolam (XANAX) 0.25 MG tablet Take 0.25 mg by mouth as needed 07/07/2018 Active Loratadine (CLARITIN) 10 MG Take by mouth once daily Active metoclopramide (REGLAN) 5 MG/5ML solution Take 5 mL by mouth 4 times daily - before meals & nightly 120 mL 08/26/2019 Active Additional Information Patient not taking.Reported on 07/20/2020 lisinopril-hydroCHLO ROthiazide (PRINZIDE; ZESTORETIC) 20-12.5 MG tablet Take 1 tablet by mouth once daily Hold if sbp<110 08/29/2019 Active albuterol HFA (PROVENTIL;VENTOLIN; PROAIR) 108 (90 Base) MCG/ACT inhaler Inhale 1 puff by mouth once daily 07/19/2020 Active fluocinonide (LIDEX) 0.05 % solutionIndications: Seborrheic dermatitis Apply to scalp three times weekly. 30 days supply. 40 mL 11 07/20/2020 Active Active Problems Problem Noted Date Diagnosed Date Nausea and vomiting 08/26/2019 SBO (small bowel obstruction) 08/21/2019 Post-operative state 07/30/2019 Sigmoid diverticulitis 07/30/2019 Colovaginal fistula 07/30/2019 Granuloma annulare 07/15/2019 Anxiety 09/11/2018 Essential hypertension 09/11/2018 Palpitations 09/11/2018 PVC's (premature ventricular contractions) 09/11 Raynaud's phenomenon 09/11/2018 Tobacco abuse 09/11/2018 Immunizations Name Administration Dates Next Due INFLUENZA VACCINE, HIGH-DOSE , QUADR. (FLUZONE HIGH-DOSE QUADRIVALENT; 65Y+), 0.7 ML (HD-IIV4) 07/05/2020 INFLUENZA VACCINE, QUADR. (F LUZONE; FLULAVAL; FLUARIX; AFLURIA QUADRIVALENT; 6MO+), 0.5 ML (IIV4) 08/22/2019,07/31/2019(Deferred: Patient Refused) Family History Medical History Relation Name Comments CAD (Coronary Artery Disease) Brother Cancer Father Cancer - Bladder Father Allergy (Severe) Neg Hx Asthma Neg Hx CVA Neg Hx Cancer - Breast Neg Hx Cancer - Other Neg Hx Cancer - Skin, Melanoma Neg Hx Cancer - Skin, Non Melanoma Neg Hx Eczema Neg Hx Hemophilia Neg Hx Psoriasis Neg Hx Rashes/Skin Problems Neg Hx Relation Name Status Comments Brother Father Sister Alive Social History Tobacco Use Types Packs/Day Years Used Date Smoking Tobacco: Every Day Cigarettes 0 Smokeless Tobacco: Never Tobacco Cessation:Ready to Q uit: No; Counseling Given: Yes Alcohol Use Standard Drinks/Week Comments Yes 4 (1 standard drink = 0.6 oz pur e alcohol) Sex and Gender Information Value Date Recorded Sex Assigned at Not on file Gender Identity Not on file Sexual Orientation Not on file Last Filed Vital Signs Vital Sign Reading Time Taken Comments Blood Pressure 117/65 08/29/2019 12:16 PM LIMOUSINE DRIVER Pulse 68 08/29/2019 12:16 PM LIMOUSINE DRIVER Temperature 37.1 C (98.7 F) 08/29/2019 12:16 PM LIMOUSINE DRIVER Respiratory Rate 20 08/29/2019 12:16 PM LIMOUSINE DRIVER Oxygen Saturation 100% 08/29/2019 12:16 PM LIMOUSINE DRIVER Inhaled Oxygen Concentration 97% 08/21/2019 1 1:23 PM LIMOUSINE DRIVER Weight 52.4 kg (115 lb 9.6 oz) 08/29/2019 4:00 A M LIMOUSINE DRIVER Height 167.6 cm (5' 6 ) 08/26/2019 10:39 PM LIMOUSINE DRIVER Body Mass Index 18.66 08/26/2019 10:39 PM LIMOUSINE DRIVER Plan of Treatment Health Maintenance Due Date Last Done Comments BONE DENSITY TESTING 1955 COLOGUARD (AGES 45-75) - COL ON CA SCREENING 1955 COLON MONITORING 1955 COLONOSCOPY - COLON CA SCREENING 1955 CT COLONOGRAPHY - COLON CA SCREENING 1955 Colorectal Cancer Screening 1955 FIT - COLON CA SCREENING 1955 FLEX SIG - COLON CA SCREENING 1955 LIPID TESTING 1955 MAMMOGRAM 1955 HEPATITIS C SCREENING 04/03/1973 DTAP/TDAP/TD VACCINES (1 - Tdap) 1974 PNEUMOCOCCAL VACCINE 50+ (1 of 2 - PCV) 1974 ZOSTER VACCINE (1 of 2) 2005 COVID-19 VACCINE ( - 2023-2 5 season) 2024 INFLUENZA VACCINE (#1) 2024 0, 08/22/2019, 07/14/2018 DEPRESSION SCREENING 09/09/2024 Respiratory Syncytial Virus (RSV) Vaccine Pt: or over 60 yrs (1 - 1-dose 75+ series) 2030 HEPATITIS B VACCINE Aged Out No longe r eligible based on patient's age to complete this topic HIB VACCINE Aged Out No longer eligi ble based on patient's age to complete this topic HPV VACCINE Aged Out No longer eligi ble based on patient's age to complete this topic MENINGOCOCCAL (Group B) VACCINE Aged Out No longer eligible b ased on patient's age to complete this topic MENINGOCOCCAL VACCINE Aged Out No radha amanda eligible based on patient's age to complete this topic Advance Directives * Full Code (Latest Code Status on File) Date Activated Date Inactivated Comments 08/26/2019 11:04 PM 08/29/2019 3:48 PM * Full Code Date Activated Date Inactivated Comments 08/21/2019 10:38 PM 08/22/2019 5:18 PM * Full Code Date Activated Date Inactivated Comments 07/30/2019 2:58 PM 08/03/2019 2:32 PM Care Teams Scoop Machine Operator Relationship Specialty Start Date End Date Julian Jenkins DO PCP - General 10/13/13
--- OUTSIDE RECORDS SUMMARY | 2024-10-29 12:01 | XMS_ITS | Referral Summary ---
Author Organization [facility] [address] Address [address] [place] [address] Care Team Providers Care Staff Accountant Name Role Phone Julian Jenkins DO Primary Care Provider [phone] Lillian Onofre MD Unavailable [phone] Judith Goins MD Unavailable [phone] Encounters Date Type Department Care Team Description 08/03/2024 1:00 PM LADIES SUIT OPERATOR Consult [facility] Medical Office Building 2 Radiation Oncology [address] [place] [address] Judith Goins MD Thyrotoxicosis with diffuse goiter without thyrotoxic crisis or storm from Last 3 Months Allergies Active Allergy Reactions Criticality Noted Date Comments Penicillins Anaphylaxis High 10/26/[address] (NexIUM) 20 mg capsule take 1 capsule by oral route every day at least 1 hour before a meal swallowing whole. Do not crush or chew granules. 0 0 6 Active ALPRAZolam (XANAX) 0.25 mg tablet Take 1 tablet (0.25 mg total) by mouth every 6 (six) hours as needed 5 8 Active albuterol HFA (PROVENTIL HFA,VENTOLIN HFA,PROAIR HFA) 90 mcg/actuation inhaler Inhale 1 puff daily 0 Active fluticasone propionate (FLONASE) 50 mcg/actuation nasal spray Administer 1 spray into each nostril daily Active ibandronate (BONIVA) 150 mg tablet TAKE ONE TABLET (150MG) BY MOUTH ONCE MONTHLY 4 Active lisinopril-hydr oCHLOROthiazide (ZESTORETIC) 20-12.5 mg per tablet Take 1 tablet by mouth daily Active loratadine 10 mg capsule Take by mouth daily Active methIMAzole (TAPAZOLE) 10 mg tablet 10 MG ORALLY DAILY FOR 90 DAYS 4 Active simvastatin (ZOCOR) 10 mg tablet Take 1 tablet (10 mg total) by mouth daily 4 Active calcium-vitamin D3-vitamin K 500 mg-1,000 unit-40 mcg tablet,chewable Take by mouth Active Active Problems Problem Noted Date Diagnosed Date Thyrotoxicosis with diffuse goiter without thyrotoxic crisis or storm 08/03/2024 Palpitations 09/11/2018 Essential hypertension 09/11/2018 Tobacco abuse 09/11/2018 PVC's (premature ventricular contractions) 09/11 Anxiety 09/11/2018 Raynaud's phenomenon 09/11/2018 Social History Tobacco Use Types Packs/Day Years Used Date Smoking Tobacco: Heavy Smoker Cigarettes 0.5 47.1 Started: 1977 Smokeless Tobacco: Never Tobacco Cessation:Ready to Q uit: Not Asked; Counseling Given: Not Answered Comments:Smoking History Packs/day: 0.5 Packs Alcohol Use Standard Drinks/Week Comments Yes 0 (1 standard drink = 0.6 oz pur e alcohol) AUDIT-C Answer Date Recorded Q1: How often do you have a drink containing alcohol? 4 or more times a week 08/03/2024 Q2: How many drinks containi ng alcohol do you have on a typical day when you are drinking? 1 or 2 Frequency of Binge Drinking Not on file 07/11 Comments Unknown Sex and Gender Information Value Date Recorded Sex Assigned at Not on file Legal Sex Female 3:55 AM LADIES SUIT OPERATOR Gender Identity Not on file Sexual Orientation Not on file Last Filed Vital Signs Vital Sign Reading Time Taken Comments Blood Pressure 121/74 08/03/2024 1:03 PM LADIES SUIT OPERATOR Pulse 91 08/03/2024 1:03 PM LADIES SUIT OPERATOR Temperature - - Respiratory Rate - - Oxygen Saturation 100% 08/03/2024 1:03 PM LADIES SUIT OPERATOR Inhaled Oxygen Concentration - - Weight 49.3 kg (108 lb 9.6 oz) 08/03/2024 1:03 P M LADIES SUIT OPERATOR Height 167.6 cm (5' 6 ) 09/11/2018 10:18 AM LADIES SUIT OPERATOR Body Mass Index 17.53 09/11/2018 10:18 AM LADIES SUIT OPERATOR Plan of Treatment Not on file Insurance [facility] [employer] MEDICARE A[employer] MEDICARE Care Teams Staff Accountant Relationship Specialty Start Date End Date Julian Jenkins DO PCP - General 10/23/11 Lillian Onofre MD [address] [address] Referring Physician Internal Medicine 07/23/24 Judith Goins MD [facility] [address] Radiation Oncologist Radiation Oncology 07/23/24
--- OUTSIDE RECORDS SUMMARY | 2024-10-29 12:01 | XMS_ITS | Referral Summary ---
Author Organization [facility] [employer] Address [address] [place] [address] Care Team Providers Care Assembler Equipment Name Role Phone Julian Jenkins DO Primary Care Provider [phone] Source Comments [facility],non-owned Affiliates and Associated Physician Practices is amultiple site organization consisting of ambulatory clinics and hospital sitesin [place], [place], [place] and [place]. This disclosure is being madepursuant to the Care Everywhere program and may not contain all information available regarding this patient. Last updated 18.[facility] [employer] Allergies Active Allergy Reactions Criticality Noted Date [...] 6MO+), 0.5 ML (IIV4) 08/22/2019,07/31/2019(Deferred: Patient Refused) Social History Tobacco Use Types Packs/Day Years [...] Comments Blood Pressure 117/65 08/29/2019 12:16 PM HARPSICHORD MAKER Pulse 68 08/29/2019 12:16 PM HARPSICHORD MAKER Temperature 37.1 C (98.7 F) 08/29/2019 12:16 PM HARPSICHORD MAKER Respiratory Rate 20 08/29/2019 12:16 PM HARPSICHORD MAKER Oxygen Saturation 100% 08/29/2019 12:16 PM HARPSICHORD MAKER Inhaled Oxygen Concentration 97% 08/21/2019 1 1:23 PM HARPSICHORD MAKER Weight 52.4 kg (115 lb 9.6 oz) 08/29/2019 4:00 A M HARPSICHORD MAKER Height 167.6 cm (5' 6 ) 08/26/2019 10:39 PM HARPSICHORD MAKER Body Mass Index 18.66 08/26/2019 10:39 PM HARPSICHORD MAKER Functional Status Functional Status Response Date of Assess ment Is person deaf or have serious hearing difficult y? No 08/29/2019 Is person blind or have serious difficulty seein g? No 08/29/2019 Does person have serious dif ficulty walking/climbing stairs? No 08/29/2019 Does person have difficulty dressing/bathing? No 08/29/2019 Does person have difficulty doing errands alone? No 08/29/2019 Cognitive Status Response Date of Assessm ent Does person have difficulty concentrating/remembering/making decisions? No 08/29/2019 Plan of Treatment Not on file Advance Directives * Full Code (Latest Code Status on File) Date Activated Date Inactivated Comments 08/26/2019 11:04 PM 08/29/2019 3:48 PM * Full Code Date Activated Date Inactivated Comments 08/21/2019 10:38 PM 08/22/2019 5:18 PM * Full Code Date Activated Date Inactivated Comments 07/30/2019 2:58 PM 08/03/2019 2:32 PM Care Teams Assembler Equipment Relationship Specialty Start Date End Date Julian Jenkins DO PCP - General 10/13/13
--- OUTSIDE RECORDS SUMMARY | 2024-10-29 12:01 | XMS_ITS | Encounter Summary ---
Author Organization [facility] Address [address] [place] [address] Care Team Providers Care Desizing Pad Operator Name Role Phone Julian Jenkins DO Primary Care Provider [phone] Encounter Details Date Type Department Care Team (Late st Contact Info) Description 07/28/2019 [facility] Outpatient Visit [facility] [address] [place] [address] Caleb Dent MD [address] [facility] [address] [place] [address] Social History Tobacco Use Types Packs/Day Years Used Date Smoking Tobacco: Every Day Cigarettes Smokeless Tobacco: Never Alcohol Use Standard Drinks/Week Comments Yes 4 (1 standard drink = 0.6 oz pur e alcohol) Sex and Gender Information Value Date Recorded Sex Assigned at Not on file Gender Identity Not on file Sexual Orientation Not on file documented as of this encounter Plan of Treatment Not on file documented as of this encounter Visit Diagnoses Not on filedocumented in this encounter Care Teams Desizing Pad Operator Relationship Specialty Start Date End Date Julian Jenkins DO PCP - General 10/13/13 documented as of this encounter
--- OUTSIDE RECORDS SUMMARY | 2024-10-29 12:01 | XMS_ITS | Patient Health Summary ---
Author Organization [facility] Address [address] [place] [address] Care Team Providers Care Generator Operator Straight Bevel Gear Name Role Phone Julian Jenkins DO Primary Care Provider [phone] Note from [facility],non-owned Affiliates and Associated Physician Practices is amultiple site organization consisting of ambulatory clinics and hospital sitesin [place], [place], [place] and [place]. This disclosure is being madepursuant to the Care Everywhere program and may not contain all information available regarding this patient. Last updated 18.[facility] Allergies * Penicillins(Anaphylaxis) -High Criticality Medications * Be aware that medications may not be up to date on this document. Alwaysverify current medications with the patient. * esomeprazole (NEXIUM) 10 MG packet(Started 07/10/2017) Take by mouth. * BONIVA 150 MG tablet(Started 05/29/2018) Take 150 mg by mouth every 30 days * ALPRAZolam (XANAX) 0.25 MG tablet(Started 07/07/2018) Take 0.25 mg by mouth as needed * Loratadine (CLARITIN) 10 MG Take by mouth once daily * metoclopramide (REGLAN) 5 MG/5ML solution(Started 08/26/2019) Take 5 mL by mouth 4 times daily - before meals & nightly * lisinopril-hydroCHLOROthiazide (PRINZIDE; ZESTORETIC) 20-12.5 MG tablet (Started 08/29/2019) Take 1 tablet by mouth once daily Hold if sbp<110 * albuterol HFA (PROVENTIL;VENTOLIN;PROAIR) 108 (90 Base) MCG/ACT inhaler (Started 07/19/2020) Inhale 1 puff by mouth once daily * fluocinonide (LIDEX) 0.05 % solution(Started 07/20/2020) Apply to scalp three times weekly. 30 days supply. 11 refills by 07/20/2021 Active Problems Problem Noted Date Diagnosed Date Nausea and vomiting 08/26/2019 SBO (small bowel obstruction) 08/21/2019 Post-operative state 07/30/2019 Sigmoid diverticulitis 07/30/2019 Colovaginal fistula 07/30/2019 Granuloma annulare 07/15/2019 Anxiety 09/11/2018 Essential hypertension 09/11/2018 Palpitations 09/11/2018 PVC's (premature ventricular contractions) 09/11 Raynaud's phenomenon 09/11/2018 Tobacco abuse 09/11/2018 Immunizations * INFLUENZA VACCINE, HIGH-DOSE, QUADR. (FLUZONE HIGH-DOSE QUADRIVALENT; 65Y+), 0.7 ML (HD-IIV4)(Given 07/05/2020) * INFLUENZA VACCINE, QUADR. (FLUZONE; FLULAVAL; FLUARIX; AFLURIA QUADRIVALENT; 6MO+), 0.5 ML (IIV4)(Given 08/22/2019) Social History Tobacco Use Types Packs/Day Years [...] Comments Blood Pressure 117/65 08/29/2019 12:16 PM [facility] Pulse 68 08/29/2019 12:16 PM [facility] Temperature 37.1 C (98.7 F) 08/29/2019 12:16 PM [facility] Respiratory Rate 20 08/29/2019 12:16 PM [facility] Oxygen Saturation 100% 08/29/2019 12:16 PM [facility] Inhaled Oxygen Concentration 97% 08/21/2019 1 1:23 PM [facility] Weight 52.4 kg (115 lb 9.6 oz) 08/29/2019 4:00 A M [facility] Height 167.6 cm (5' 6 ) 08/26/2019 10:39 PM [facility] Body Mass Index 18.66 08/26/2019 10:39 PM [facility] Procedures * DERMATOPATHOLOGY(Performed 11/08/2022) Performed for Neoplasm of uncertain behavior of skin * MAGNESIUM BLOOD(Performed 08/28/2019) * BASIC METABOLIC PANEL (CALCIUM TOTAL)(Performed 08/28/2019) * CT ABDOMEN PELVIS WO CONTRAST(Performed 08/27/2019) Performed for Nausea and vomiting, intractability of vomiting not specified, unspecified vomiting type * PTT(Performed 08/27/2019) * PT-INR(Performed 08/27/2019) * PHOSPHORUS BLOOD(Performed 08/27/2019) * MAGNESIUM BLOOD(Performed 08/27/2019) * BASIC METABOLIC PANEL (CALCIUM TOTAL)(Performed 08/27/2019) * PHOSPHORUS BLOOD(Performed 08/21/2019) Performed for SBO (small bowel obstruction) (HCC) * MAGNESIUM BLOOD(Performed 08/21/2019) Performed for SBO (small bowel obstruction) (HCC) * COMPREHENSIVE METABOLIC PANEL(Performed 08/21/2019) Performed for SBO (small bowel obstruction) (HCC) * CBC W AUTO DIFFERENTIAL(Performed 08/21/2019) Performed for SBO (small bowel obstruction) (HCC) * LACTIC ACID BLOOD(Performed 08/21/2019) Performed for SBO (small bowel obstruction) (HCC) * APHERESIS/TRANSFUSION ORDER(Performed 08/05/2019) * CARDIAC EKG ORDER(Performed 08/05/2019) * CBC W AUTO DIFFERENTIAL(Performed 08/02/2019) * PT EVAL AND TREAT(Performed 08/01/2019) * BASIC METABOLIC PANEL (CALCIUM TOTAL)(Performed 07/31/2019) * CBC W AUTO DIFFERENTIAL(Performed 07/31/2019) * PATHOLOGY TISSUE EXAM (STL)(Performed 07/30/2019) Performed for Diagnosis unknown * ENDOTRACHEAL TUBE NOTE(Performed 07/30/2019) * LAPAROSCOPIC PARTIAL/JOSIE COLECTOMY(Performed 07/30/2019) * BLOOD TYPE VERIFICATION(Performed 07/30/2019) * POTASSIUM BLOOD(Performed 07/30/2019) * TYPE + SCREEN PANEL(Performed 07/30/2019) Performed for Preop examination * IMAGING/RADIOLOGY/XRAY RESULTS ORDER(Performed 07/16/2019) * CT DESTROY PREMALIG LESION, 1ST LESION(Performed 07/15/2019) Performed for Actinic keratosis * CT BIOPSY OF SKIN LESION(Performed 07/10/2018) Performed for Neoplasm of uncertain behavior of skin * DERMATOPATHOLOGY(Performed 07/09/2018) Performed for Neoplasm of uncertain behavior of skin * DERMATOPATHOLOGY(Performed 07/13/2015) Results * DERMATOPATHOLOGY (11/08/2022 12:00 AM [facility]) Only the most recent of3 resultswithin the time period is included. Case Report Dermatopathology Report Case: [id number] Authorizing Provider: Esme Heredia PA-C Collected: 11/08/2022 12:00 AM Ordering Location: [facility] Received: 11/09/2022 11:55 AM Pathologist: Eloise Matamoros MD Specimen: Skin, mid upper back 2:05 PM [facility] Final Diagnosis Specimen A. SKIN, mid upper back: COMPOUND NEVUS WITH CONGENITAL FEATURES, SUPERFICIAL FRAGMENTS OF (D22.5) DERMAL FIBROSIS (L90.5) (see microscopic description and comment) 2:05 PM [facility] Clinical History Atypical Nevus 2:05 PM [facility] Gross Description Specimen A: Received is one formalin filled container labeled with the patient's name and designated mid upper back. The specimen consists of a shave biopsy measuring 5x5x1, 3x1x1 mm. Jar 0. 2:05 PM [facility] Microscopic Description Specimen A. SKIN, mid upper back: There are nests of melanocytes at the dermal-epidermal junction and within the dermis. Some melanocytes are splayed between collagen bundles and are localized around adnexal structures. This lesion is present at the margin of the specimen. There is focal dermal fibrosis. COMMENT: In the correct clinical setting, these findings can be seen in a traumatized nevus or persistent (recurrent) nevus. If this specimen is sampled from a larger lesion, these findings may not be lifeline representatives of the entire lesion. Clinicopathologic correlation is recommended. 2:05 PM [facility] Disclaimer An external and internal positive and negative controls are appropriate for the histochemical, immunohistochemical and immunofluorescence stain(s) in this case (if any), except where stated explicitly. The performance characteristics of the stain(s) cited in this report were developed and its performance characteristic determined by the Dermatopathology Laboratory at [facility], directed by Dr. Aravind Trivedi. These tests need not be, and therefore are not, approved by the [place] Food and Drug Administration. The tests are used for clinical purposes. Billing Codes Specimen Charges Stain Charges 67535 1 3 2:05 PM [facility] Embedded Images 3 2:05 PM [facility] Pathology/Cytolog y TISSUE SPECIMEN FROM SKIN / Unknown 11/08/2022 11/09/2022 11:55 AM [facility] Esme Heredia PA-C LAB - PATHOLOGY/CYTO LOGY ORDERABLES DERMATOPATHOLOGY LABORATORY [facility] - Department of Dermatology [address], [address] [phone] * (ABNORMAL) BASIC METABOLIC PANEL (CALCIUM TOTAL) (08/28/2019 2:43 AM [facility]) Only the most recent of3 resultswithin the time period is included. Glucose 116(H) 70 - 105 mg/dL 08/28/2019 3:17 AM [facility] Sodium 140 136 - 145 mmol/L 08/28/2019 3:17 AM [facility] Potassium 3.5 3.5 - 4.7 mmol/L 08/28/2019 3:17 AM [facility] Chloride 105 98 - 107 mmol/L 08/28/2019 3:17 AM [facility] CO2 27 23 - 31 mmol/L 08/28/2019 3:17 AM [facility] Calcium 9.3 8.4 - 10.4 mg/dL 08/28/2019 3:17 AM [facility] Anion Gap 8 8 - 16 mmol/L 08/28/2019 3:17 AM [facility] BUN 17 9.8 - 20.1 mg/dL 08/28/2019 3:17 AM [facility] Creatinine 0.58 0.57 - 1.11 mg/dL 08/28/2019 3:17 AM [facility] eGFR by MDRD >60 >60 mL/min/1.7 3m2 08/28/2019 3:17 AM [facility] eGFR by MDRD >60 >60 mL/min/1.7 3m2 08/28/2019 3:17 AM [facility] Blood BLOOD SPECIMEN / Unknown Venipuncture / Unknown 08/28/2019 2:43 AM [facility] 08/28/2019 2:48 AM [facility] Irma Owusu MD LAB - CHEMISTRY ORDE [facility] Performing Organization Address [facility] Co de Phone Number [facility] [address] [place] [address] * MAGNESIUM BLOOD (08/28/2019 2:43 AM [facility]) Only the most recent of3 resultswithin the time period is included. Magnesium 1.6 1.6 - 2.6 mg/dL 08/28/2019 3:17 AM [facility] Blood BLOOD SPECIMEN / Unknown Venipuncture / Unknown 08/28/2019 2:43 AM [facility] 08/28/2019 2:48 AM [facility] Juan Oneill MD LAB - CHEMISTRY ORDJorge RODRÍGUEZ Performing Organization Address [facility] Co de Phone Number [facility] [address] [place] [address] * CT ABDOMEN AND PELVIS NON IV CONTRAST (08/27/2019 4:08 PM [facility]) Anatomical Region Laterality Modality Abdomen, Pelvis Computed Tomogra phy 08/27/2019 4:49 PM [facility] Impressions 08/27/2019 4:53 PM [facility] 1. No CT evidence of mechanical bowel obstruction or visceral perforation. 2. Postoperative changes in the rectum. 3. Diverticulosis, without associated inflammatory changes. 4. Atherosclerosis. Reading Radiologist: Dontrell Vargas MD on 08/27/2019 at 4:53 PM Narrative 08/27/2019 4:[address] EXAMINATION OF THE ABDOMEN AND PELVIS INDICATION: 64-year-old with abdominal pain, nausea and vomiting prior sigmoid colectomy and repair of a colovaginal fistula.. TECHNIQUE: After administration of oral contrast, images were made through the abdomen and pelvis. No intravenous contrast was given. FINDINGS: I do not have any prior studies available for comparison. The lung bases are clear. There is an esophagogastric tube directed into the mid stomach. There is no pleural effusion. CT ABDOMEN: Contrast is seen within the colon, with a small amount seen within distal, nondistended, small bowel loops. There is mild fullness of isolated proximal small bowel loops, measuring up to 2.9 cm, but I do not see any findings to suggest a mechanical small bowel obstruction. There is no free peritoneal air. The unenhanced appearances the liver, nondistended gallbladder, spleen, pancreas and adrenal glands are unremarkable. I do not see any hydronephrosis or opaque renal calculi. The perirenal fat is clear. Minimal atherosclerotic calcifications are seen in the nondilated aorta and origins of isolated visceral branch vessels. There is no retroperitoneal adenopathy. CT PELVIS: The appendix is well opacified, and appears normal. The urinary bladder contour is unremarkable. Multiple sigmoid diverticuli are shown, not associated with any inflammatory changes. Surgical clips in the mid rectum are noted. There is no free peritoneal fluid. I do not not see any pelvic adenopathy or abscess. Atherosclerotic changes are seen in the iliac and femoral branch vessels. Procedure Note Dontrell Vargas MD - 08/27/2019 CT EXAMINATION OF THE ABDOMEN AND PELVIS INDICATION: 64-year-old with abdominal pain, nausea and vomiting prior sigmoid colectomy and repair of a colovaginal fistula.. TECHNIQUE: After administration of oral contrast, images were made through the abdomen and pelvis. No intravenous contrast was given. FINDINGS: I do not have any prior studies available for comparison. The lung bases are clear. There is an esophagogastric tube directed into the mid stomach. There is no pleural effusion. CT ABDOMEN: Contrast is seen within the colon, with a small amount seen within distal, nondistended, small bowel loops. There is mild fullness of isolated proximal small bowel loops, measuring up to 2.9 cm, but I do not see any findings to suggest a mechanical small bowel obstruction. There is no free peritoneal air. The unenhanced appearances the liver, nondistended gallbladder, spleen, pancreas and adrenal glands are unremarkable. I do not see any hydronephrosis or opaque renal calculi. The perirenal fat is clear. Minimal atherosclerotic calcifications are seen in the nondilated aorta and origins of isolated visceral branch vessels. There is no retroperitoneal adenopathy. CT PELVIS: The appendix is well opacified, and appears normal. The urinary bladder contour is unremarkable. Multiple sigmoid diverticuli are shown, not associated with any inflammatory changes. Surgical clips in the mid rectum are noted. There is no free peritoneal fluid. I do not not see any pelvic adenopathy or abscess. Atherosclerotic changes are seen in the iliac and femoral branch vessels. IMPRESSION 1. No CT evidence of mechanical bowel obstruction or visceral perforation. 2. Postoperative changes in the rectum. 3. Diverticulosis, without associated inflammatory changes. 4. Atherosclerosis. Reading Radiologist: Dontrell Vargas MD on 08/27/2019 at 4:53 PM Juan Oneill MD CT ORDERABLES * PTT (08/27/2019 4:55 AM [facility]) PTT 32.3 23.0 - 38.4 sec 08/27/2019 5:48 AM [facility] Blood BLOOD SPECIMEN / Unknown Venipuncture / Unknown 08/27/2019 4:55 AM [facility] 08/27/2019 5:30 AM [facility] Narrative [facility] - 08/27/2019 5:48 AM [facility] Heparin Therapeutic Range for PTT: 71.0 - 109.0 seconds. Maria Elena Moore APRN-SHANNON LAB - COAGULATION ORDERABLES [facility] [address] [place] [address] * PT-INR (08/27/2019 4:55 AM [facility]) PT 13.5 12.1 - 14.8 sec 08/27/2019 5:46 AM [facility] INR 1.1 0.9 - 1.1 08/27/2019 5:46 AM [facility] Blood BLOOD SPECIMEN / Unknown Venipuncture / Unknown 08/27/2019 4:55 AM [facility] 08/27/2019 5:30 AM [facility] Narrative [facility] - 08/27/2019 5:46 AM [facility] Conventional Warfarin Anticoagulant Therapy: INR Reference Range: 2.0-3.0 Intensive Warfarin Anticoagulant Therapy: INR Reference Range: 2.5-3.5 Maria Elena Moore [facility] - COAGULATION ORDERABLES Performing Organization Address [facility] Co de Phone Number [facility] [id number] [place] [phone] * PHOSPHORUS BLOOD (08/27/2019 12:51 AM [facility]) Only the most recent of2 resultswithin the time period is included. Phosphorus 3.8 2.3 - 4.7 mg/dL 08/27/2019 1:17 AM [facility] Blood BLOOD SPECIMEN / Unknown Venipuncture / Unknown 08/27/2019 12:51 AM [facility] 08/27/2019 12:54 AM [facility] Maria Elena Moore [facility] - CHEMISTRY OR DERABLES Performing Organization Address [facility] de Phone Number [facility] [id number] [place] [address] * CBC W AUTO DIFFERENTIAL (08/21/2019 11:42 PM [facility]) Only the most recent of3 resultswithin the time period is included. WBC 10.5 4.4 - 10.7 x10E9/L 08/21/2019 11:55 PM [facility] WBC Corrected 08/21/2019 11:55 PM [facility] RBC 3.96 3.80 - 5.20 x10E12/L 08/21/2019 11:55 PM [facility] Hemoglobin 12.6 12.0 - 15.6 gm/dL 08/21/2019 11:55 PM [facility] Hematocrit 37.7 35.9 - 45.5 % 08/21/2019 11:55 PM [facility] MCV 95.2 80.7 - 98.3 fl 08/21/2019 11:55 PM [facility] MCH 31.8 26.7 - 34.0 pg 08/21/2019 11:55 PM [facility] MCHC 33.4 30.8 - 35.9 gm/dL 08/21/2019 11:55 PM [facility] Platelet Count 228 153 - 416 x10E9/L 08/21/2019 11:55 PM [facility] RDW-CV 14.8 12.1 - 14.9 % 08/21/2019 11:55 PM [facility] MPV 10.9 9.4 - 12.9 fl 08/21/2019 11:55 PM [facility] Neutrophils % 67.3 44.0 - 73.0 % 08/21/2019 11:55 PM [facility] Lymphocytes % 22.6 20.0 - 43.0 % 08/21/2019 11:55 PM [facility] Monocytes % 8.4 5.0 - 13.0 % 08/21/2019 11:55 PM [facility] Eosinophils % 1.3 0.0 - 6.0 % 08/21/2019 11:55 PM [facility] Basophils % 0.2 0.0 - 2.0 % 08/21/2019 11:55 PM [facility] Immature Granulocytes 0.2 0 - 1 % 08/21/2019 11:55 PM [facility] Neutrophil Absolute 7.09 2.01 - 7.14 x10E9/L 08/21/2019 11:55 PM [facility] Lymphocytes Absolute 2.38 1.07 - 3.94 x10E9/L 08/21/2019 11:55 PM [facility] Monocytes Absolute 0.89 0.26 - 1.07 x10E9/L 08/21/2019 11:55 PM [facility] Eosinophils Absolute 0.14 0 - 0.47 x10E9/L 08/21/2019 11:55 PM [facility] Basophils Absolute 0.02 0 - 0.08 x10E9/L 08/21/2019 11:55 PM [facility] Immature Granulocytes Absolute 0.02 0.00 - 0.06 x10E9/L 08/21/2019 11:55 PM [facility] nRBC Auto 0 /100 WBC 08/21/2019 11:55 PM [facility] Blood BLOOD SPECIMEN / Unknown Venipuncture / Unknown 08/21/2019 11:42 PM [facility] 08/21/2019 11:50 PM [facility] Dash Her MD LAB - HEMATOLOGY ORD ERABLES [facility] [address] [place] [address] * (ABNORMAL) COMPREHENSIVE METABOLIC PANEL (08/21/2019 11:42 PM [facility]) Glucose 104 70 - 105 mg/dL 08/22/2019 12:12 AM [facility] Sodium 141 136 - 145 mmol/L 08/22/2019 12:12 AM [facility] Potassium 3.3(L) 3.5 - 4.7 mmol/L 08/22/2019 12:12 AM [facility] Chloride 107 98 - 107 mmol/L 08/22/2019 12:12 AM [facility] CO2 25 23 - 31 mmol/L 08/22/2019 12:12 AM [facility] Calcium 9.1 8.4 - 10.4 mg/dL 08/22/2019 12:12 AM [facility] Anion Gap 9 8 - 16 mmol/L 08/22/2019 12:12 AM [facility] BUN 15 9.8 - 20.1 mg/dL 08/22/2019 12:12 AM [facility] Creatinine 0.67 0.57 - 1.11 mg/dL 08/22/2019 12:12 AM [facility] Alkaline Phosphatase 65 40 - 150 U/L 08/22/2019 12:12 AM [facility] ALT 9 0 - 61 U/L 08/22/2019 12:12 AM [facility] AST 13 5 - 34 U/L 08/22/2019 12:12 AM [facility] Protein Total 6.7 6.4 - 8.3 gm/dL 08/22/2019 12:12 AM [facility] Albumin 3.9 3.2 - 4.6 gm/dL 08/22/2019 12:12 AM [facility] Bilirubin Total 1.0 0.2 - 1.0 mg/dL 08/22/2019 12:12 AM [facility] eGFR by MDRD >60 >60 mL/min/1.7 3m2 08/22/2019 12:12 AM [facility] eGFR by MDRD >60 >60 mL/min/1.7 3m2 08/22/2019 12:12 AM [facility] Blood BLOOD SPECIMEN / Unknown Venipuncture / Unknown 08/21/2019 11:42 PM [facility] 08/21/2019 11:50 PM [facility] Dash Her MD LAB - CHEMISTRY DEANGELO RODRÍGUEZ Performing Organization Address [facility] Co de Phone Number [facility] [address] [place] [address] * LACTIC ACID BLOOD (08/21/2019 11:41 PM [facility]) Lactic Acid 0.54 0.5 - 2.2 mmol/L 08/22/2019 12:08 AM [facility] Blood BLOOD SPECIMEN / Unknown Venipuncture / Unknown 08/21/2019 11:41 PM [facility] 08/21/2019 11:50 PM [facility] Dash Her MD LAB - CHEMISTRY DEANGELO RODRÍGUEZ Performing Organization Address [facility] Co de Phone Number [facility] [address] [place] [address] * APHERESIS/TRANSFUSION ORDER (08/05/2019 2:00 AM [facility]) Narrative 08/05/2019 2:00 AM [facility] Ordered by an unspecified provider. Scanned Document NURSING - VITAL SIGN S AND ASSESSMENT * CARDIAC EKG ORDER (08/05/2019 2:00 AM [facility]) Narrative 08/05/2019 2:00 AM [facility] Ordered by an unspecified provider. Scanned Document CARDIAC SERVICES ORD ERABLES * GROSS + MICRO EXAM (STL) (07/30/2019 12:19 PM [facility]) Case Report Surgical Pathology Report Case: [id number] Authorizing Provider: Caleb Dent MD Collected: 07/30/2019 12:19 PM Ordering Location: [facility] Received: 07/30/2019 01:14 PM Pathologist: Staci Sol MD Specimen: Colon Sigmoid , SHORT STITCH AT FISTULA SITE, LONG STITCH PROXIMAL 08/03/2019 10:57 AM [facility] Final Diagnosis Sigmoid colon, resection: -- Diverticulosis -- Clinical history of colovaginal fistula 08/03/2019 10:57 AM [facility] Gross Description The specimen is received in a formalin-filled container labeled with the patient's name, Ambar Gomes, and sigmoid colon, short stitch at fistula, and consists of a segment of colon (17 cm in length x 4 cm in diameter) which was previously opened and demonstrates a long stitch at the proximal resection margin and a short stitch designated as fistula. In proximity to the short suture, the serosal surface is brown and roughened. Definitive vaginal mucosa is not identified. The remaining serosal surface is smooth and espino with adherent adipose tissue. The mucosa demonstrates multiple diverticula including a diverticulum underlying the short suture designated as fistula. No discrete masses are identified. Director Broadcast sections are submitted as follows: A1 - proximal margin, shaved A2 - distal margin, shaved A3 - bowel wall at the short stitch including diverticulum A4 and A5 - additional diverticula AMA/ns 08/03/2019 10:57 AM [facility] Microscopic Description Sections show colonic tissue with diverticulosis. No evidence of dysplasia or malignancy is seen. 08/03/2019 10:57 AM [facility] Disclaimer All histochemical and/or immunohistochemical results are interpreted with controls that demonstrate appropriate staining reactions before reporting results. Note on use of immunocytochemistry reagents: This test was developed and its performance characteristic determined by [facility], Department of Laboratory Medicine. It has not been cleared or approved by the U.S. Food and Drug Administration (FDA). The FDA has determined that such clearance or approval is not necessary. The test is used for clinical purpose. It should not be regarded as investigational or for research. This laboratory is certified to perform high complexity testing. 08/03/2019 10:57 AM [facility] Embedded Images 08/03/2019 10:57 AM [facility] Pathology/Cytolo gy ENTIRE SIGMOID COLON / Unknown 07/30/2019 12:19 PM CAPTAIN WAITER 07/30/2019 1:14 PM CAPTAIN WAITER Caleb Dent MD LAB - PATHOLOGY/CYTO LOGY ORDERABLES Performing Organization Address [facility] Co de Phone Number [facility] [address] [phone] * ETT LINE PERFORMABLE (07/30/2019 10:50 AM CAPTAIN WAITER) Narrative Waleska Kowalski APRN-CRNA - 07/30/2019 10:50 AM CAPTAIN WAITER Waleska Kowalski APRN-CRNA 07/30/2019 10:51 AM Endotracheal Tube Placement: Patient Location: OR. Intubation Event Date/Time: 07/30/2019 10:25 AM Procedure: intubation (61512). Procedure Section: Sedation: under general anesthesia. Indications for Airway Management: anesthesia Procedure pretreatments used? No Induction: standard IV Patient Position: sniffing Mask Ventilation: easy. Blade Type: Redd Blade Size: 3 Laryngoscopy View: grade 1 (full cords) Placement: oral Tube type: cuff - inflated Tube Size (FR): 7 Depth of Insertion (CM): 21 Measured From: teeth Cuff volume (mL): 6 Cuff Inflated With: air Number of Attempts: 1. Placement Verified By: direct visualization, bilateral breath sounds, chest auscultation and CO2 monitor Tube secured with: adhesive tape. Difficult Airway? No. Procedure Start Time: 07/30/2019 10:25 AM. Procedure End Time: 07/30/2019 10:26 AM. Procedure Total Time: 1 minutes. Staff Section Anesthesia Provider: Waleska Kowalski APRN-CRNA, Performed the procedure Judith Caro DO GENERAL ANESTHESIA O RDERABLES * BLOOD TYPE VERIFICATION (07/30/2019 8:16 AM CAPTAIN WAITER) ABO O 07/30/2019 9:04 AM CAPTAIN WAITER DP BLOOD BANK Rh Type Positive 07/30/2019 9:04 AM CAPTAIN WAITER [facility] Blood Bank BLOOD SPECIMEN / Unknown Venipuncture / Unknown 07/30/2019 8:16 AM CAPTAIN WAITER 07/30/2019 8:22 AM CAPTAIN WAITER Caleb Dent MD LAB - BLOOD BANK ORD ERABLES Performing Organization Address [facility] Co de Phone Number [facility] [address] [id number] * (ABNORMAL) POTASSIUM BLOOD (07/30/2019 8:11 AM CAPTAIN WAITER) Potassium 3.4(L) 3.5 - 4.7 mmol/L 07/30/2019 8:21 AM CAPTAIN WAITER [facility] Blood BLOOD SPECIMEN / Unknown 07/30/2019 8:11 AM CAPTAIN WAITER 07/30/2019 8:11 AM CAPTAIN WAITER Judithkel Caro DO LAB - CHEMISTRY ORDE RABLES Performing Organization Address [facility] Co de Phone Number [facility] [address] [place] [address] * TYPE + SCREEN PANEL (07/30/2019 8:10 AM CAPTAIN WAITER) ABO O 07/30/2019 9:36 AM CAPTAIN WAITER [facility] Rh Type Positive 07/30/2019 9:36 AM CAPTAIN WAITER [facility] Comment:History checked. Col lect retype. Antibody Screen Negative 07/30/2019 9:36 AM CAPTAIN WAITER [facility] Blood Bank BLOOD SPECIMEN / Unknown Venipuncture / Unknown 07/30/2019 8:10 AM CAPTAIN WAITER 07/30/2019 8:15 AM CAPTAIN WAITER Judithkel Caro DO [facility] - BLOOD BANK ORD ERABLES Performing Organization Address [facility] Co de Phone Number [facility] [address] * IMAGING RADIOLOGY XRAY RESULTS ORDER (07/16/2019) Anatomical Region Laterality Modality Other Caleb Dent MD IMAGING * CT DESTROY PREMALIG LESION, 1ST LESION (07/15/2019 1:39 PM CAPTAIN WAITER) Narrative Macario Trivedi MD - 07/15/2019 1:39 PM CAPTAIN WAITER Wali Love MD 07/15/2019 1:39 PM Diagnosis and treatment options discussed. Cryotherapy (Liquid Nitrogen) to 1 lesion(s) for 5-7 seconds each. Number of cycles: 1. Wound care reviewed. Location: [facility] Wali Love MD Dermatology Research Fellow Macario Trivedi MD PROCEDURE/MINOR SURG ICAL ORDERABLES * CT BIOPSY OF SKIN LESION (07/10/2018 5:10 PM CDT) Narrative Macario Trivedi MD - 07/10/2018 5:10 PM CDT Umer Noriega MD 07/09/2018 5:29 PM Risks, benefits and alternatives to shave biopsy were discussed with the patient. Pt understands the possibility for the following: Bleeding, infection, scar, the possibility of non-diagnostic reading and the potential need for further testing or treatment, including surgical. Stated clearly the size of the specimen and the need to obtain adequate tissue for the most accurate path reading. Pt accepts all of above, verbal consent was obtained. Location: R posterior shoulder Skin prep: Alcohol Anesthesia: 1% lidocaine with epinephrine Hemostasis: Aluminum chloride Dressing and wound care discussed Macario Trivedi MD PROCEDURE/MINOR SURG ICAL ORDERABLES Care Teams Generator Operator Straight Bevel Gear Relationship Specialty Start Date End Date Julian Jenkins DO PCP - General 10/13/13
--- OUTSIDE RECORDS SUMMARY | 2024-10-29 12:01 | XMS_ITS | Clinical Summary ---
Author Organization [facility] [address] Address [address] [place] [address] Care Team Providers Care Branch Maker Name Role Phone Julian Jenkins DO Primary Care Provider [phone] Lillian Onofre MD Unavailable [phone] Judith Goins MD Unavailable [phone] Allergies Active Allergy Reactions Criticality Noted Date [...] contractions) 09/11 Anxiety 09/11/2018 Raynaud's phenomenon 09/11/2018 Encounters Date Type Department Care Team Description 08/03/2024 1:00 PM SUPERVISOR TANK HOUSE Consult [facility] Building 2 Radiation Oncology [address] [place] [address] Judith Goins MD Thyrotoxicosis with diffuse goiter without thyrotoxic crisis or storm from Last 3 Months Surgical History Surgery Date Site/Laterality Comments HYSTERECTOMY 09/09/2005 - 09/08/2006 Hysterectomy HERNIA REPAIR 09/09/1961 - 09/08/1962 ORIF WRIST FRACTURE 09/09/1969 - 09/08/1970 Right RECTOVAGINAL FISTULA CLOSURE 09/09/2018 - 09/08/2019 TONSILLECTOMY CATARACT EXTRACTION Right Medical History Medical History Date Comments Hx Other Medical rheumatoid arth ritis; Comments: [facility] 12/09/2015 - Hx Other Medical Raynauds; Comme nts: [facility] 12/09/2015 - Hx Other Medical tobacco use; Co mments: [facility] 12/09/2015 - Hypercholesteremia Hypertension GERD (gastroesophageal reflux disease) Family History Medical History Relation Name Comments Heart attack Brother Myocardial infa rction; Bladder Cancer Father Uterine cancer Maternal Grandmother Fibromyalgia Other 1 Family history of Fibromyalgia; Hypertension Other 2 Family history of Hypertension; Other Other 3 Family history of psorosis of liver; Cancer Paternal Grandmother Relation Name Status Comments Brother Father Maternal Grandmother Other 1 Other 2 Other 3 Paternal Grandmother Social History Tobacco Use Types Packs/Day Years [...] on file Legal Sex Female 3:55 AM SUPERVISOR TANK HOUSE Gender Identity Not on file Sexual Orientation Not on file Obstetrics History Last Filed Vital Signs Vital Sign Reading Time Taken Comments Blood Pressure 121/74 08/03/2024 1:03 PM SUPERVISOR TANK HOUSE Pulse 91 08/03/2024 1:03 PM SUPERVISOR TANK HOUSE Temperature - - Respiratory Rate - - Oxygen Saturation 100% 08/03/2024 1:03 PM SUPERVISOR TANK HOUSE Inhaled Oxygen Concentration - - Weight 49.3 kg (108 lb 9.6 oz) 08/03/2024 1:03 P M SUPERVISOR TANK HOUSE Height 167.6 cm (5' 6 ) 09/11/2018 10:18 AM SUPERVISOR TANK HOUSE Body Mass Index 17.53 09/11/2018 10:18 AM SUPERVISOR TANK HOUSE Plan of Treatment Health Maintenance Due Date Last Done Comments Breast Cancer Screening-Mammogram 1955 Colon Cancer Screening-Colonoscopy 1955 Depression Screening 1955 Hepatitis C Screening 1955 Osteoporosis Screening-Bone Density Scan 1955 DTaP/Tdap/Td Vaccine (1 - Tdap) 1966 Hepatitis B Screening 1973 Lung Cancer Screening 2005 Zoster Vaccine (1 of 2) 2005 Well Visit 65+ 2020 Pneumococcal vaccine 65+ (2 of 2 - PCV) 08/07/2023 08/07/2022 Covid-19 Vaccine ( - 2023-2 5 season) 2024 07/25/2021, 12/08/2020, 11/17/2020 Fall Risk Assessment 08/03/2025 08/03/2024 Influenza Vaccine Completed 07/24/2024, , 08/22/2019, Additional history exists Insurance [facility] AETNA MEDICARE [facility] MEDICARE Care Teams Branch Maker Relationship Specialty Start Date End Date Julian Jenkins DO PCP - General 10/23/11 Lillian Onofre MD [address] [address] Referring Physician Internal Medicine 07/23/24 [place] [address] [place] [id number] Radiation Oncologist Radiation Oncology 07/23/24
--- OUTSIDE RECORDS SUMMARY | 2024-10-29 12:01 | XMS_ITS | Clinical Summary ---
Author Organization [facility] Address [address] Attn: Epic Prelude ADT [place] [address] Care Team Providers Care Delivery Truck Driver Heavy Name Role Phone Unavailable Primary Care Provider Unavailabl e Immunizations Immunization Administration Dates Next Due (PNEUMOVAX 23)(50 YRS UP) PN EUMOCOCCAL POLYSACCHARIDE (PPV23) 0.5 ML, IM 08/07/2022 INFLUENZA VACCINE HIGH DOSE QUADRIVALENT 65 YR UP PF IM 07/12/2023,06/28/2022 INFLUENZA VACCINE HIGH DOSE TRIVALENT SPLIT VIRUS, (65 YR UP), 0.5ML (PF), IM 07/24/2024 Social History Tobacco Use Types Packs/Day Years Used Date Smoking Tobacco: Never Assessed Comments Unknown Sex and Gender Information Value Date Recorded Sex Assigned at Not on file Legal Sex Female 3:27 PM CDT Gender Identity Not on file Sexual Orientation Not on file Plan of Treatment Health Maintenance Due Date Last Done Comments DTAP/TDAP/TD VACCINES (1 - Tdap) 1974 BREAST CANCER SCREENING 1995 COLORECTAL SCREENING 2000 Colorectal Cancer Screening 2000 FIT-DNA Q 3 years 2000 FIT/FOBT Q 1 year 2000 Flex Sig/CT Colonography Q 5 years 2000 ZOSTER VACCINE (1 of 2) 2005 OSTEOPOROSIS SCREENING 2020 PNEUMOCOCCAL VACCINE 65+ YEA RS (2 of 2 - PCV) 08/07/2023 08/07/2022 RSV VACCINE (60+ or ) (1 - 1-dose 75+ series) 2030 INFLUENZA VACCINE Completed 07/24/2024, , 06/28/2022 Insurance RX AETNA Medicare Part D RX AETNA Medicare Part D
[2024-10-29 20:30] LABS: Alanine Aminotransferase 22 U/L (6-35); Albumin Level 4.3 g/dL (3.5-5.1); Alkaline Phosphatase 61 U/L (38-126); Anion Gap 10 mmol/L (4-12); Aspartate Amino Transferase 33 U/L (14-36); Bilirubin,Total 0.8 mg/dL (0.2-1.3); Blood Urea Nitrogen 15 mg/dL (7-17); Calcium 9.8 mg/dL (8.4-10.2); Carbon Dioxide 27 mmol/L (22-30); Chloride 103 mmol/L (98-107); Estimated Glomerular Filt Rate > 60; Glucose 103 mg/dL (65-110); Potassium 3.9 mmol/L (3.4-5.0); Sodium 140 mmol/L (137-145)
[2024-10-29 20:44] LABS: Free T3 2.56 pg/mL (2.45-5.93); Free T4 Free Thyroxine 0.35 ng/dL (0.78-2.19); Vitamin D 25 Hydroxy 67.6 ng/mL
== END 2024-10-29 11:55 | disposition home or self-care (01) ==
LOC: ANHGOSHLAB 11:54
PROVIDERS: PCP Internal Medicine; Visit Provider Internal Medicine Endocrinology, Diabetes & Metabolism
DX: E05.90 Thyrotoxicosis, unspecified without thyrotoxic crisis or storm (principal); E05.00 Thyrotoxicosis with diffuse goiter without thyrotoxic crisis or storm; R74.8 Abnormal levels of other serum enzymes; E04.9 Nontoxic goiter, unspecified; M81.0 Age-related osteoporosis without current pathological fracture; R79.89 Other specified abnormal findings of blood chemistry
CPT/HCPCS: 36415; 80053; 82306; 84439; 84443; 84481

== ENCOUNTER 2025-01-12 14:08 | Outpatient (CLI) | payer MEDICARE, SELFPAY ==
--- OUTSIDE RECORDS SUMMARY | 2025-01-12 14:13 | XMS_ITS | Clinical Summary ---
Author Organization [facility] [email or web address] Address [address] [place] [address] Care Team Providers Care Transportation Sales Consultant Name Role Phone Julian Jenkins DO Primary Care Provider [phone] Source Comments [facility],non-owned Affiliates and Associated Physician Practices is amultiple site organization consisting of ambulatory clinics and hospital sitesin [place], [place], [place] and [place]. This disclosure is being madepursuant to the Care Everywhere program and may not contain all information available regarding this patient. Last updated 18.[facility] [email or web address] Allergies Active Allergy Reactions Criticality Noted Date Comments Penicillins Anaphylaxis High 10/26/2013 Medications * Be aware that medications may not be up to date on this document. Alwaysverify current medications with the patient. esomeprazole (NEXIUM) 10 MG packet Take by mouth. 7 Active BONIVA 150 MG tablet Take 150 mg by mouth every 30 days 8 Active ALPRAZolam (XANAX) 0.25 MG tablet Take 0.25 mg by mouth as needed 8 Active Loratadine (CLARITIN) 10 MG Take by mouth once daily Active metoclopramide (REGLAN) 5 MG/5ML solution Take 5 mL by mouth 4 times daily - before meals & nightly 120 mL 9 Active Additional Information Patient not taking.Reported on 07/20/2020 lisinopril-hydr oCHLOROthiazide (PRINZIDE; ZESTORETIC) 20-12.5 MG tablet Take 1 tablet by mouth once daily Hold if sbp<110 9 Active albuterol HFA (PROVENTIL;VENT ALEKSANDRA;PROAIR) 108 (90 Base) MCG/ACT inhaler Inhale 1 puff by mouth once daily 0 Active fluocinonide (LIDEX) 0.05 % solutionIndicat ions:Seborrheic dermatitis Apply to scalp three times weekly. 30 days supply. 40 mL 11 0 Active Active Problems Problem Noted Date Diagnosed Date Nausea and vomiting 08/26/2019 SBO (small bowel obstruction) 08/21/2019 Post-operative state 07/30/2019 Sigmoid diverticulitis 07/30/2019 Colovaginal fistula 07/30/2019 Granuloma annulare 07/15/2019 Anxiety 09/11/2018 Essential hypertension 09/11/2018 Palpitations 09/11/2018 PVC's (premature ventricular contractions) 09/11 Raynaud's phenomenon 09/11/2018 Tobacco abuse 09/11/2018 Immunizations Immunization Administration Dates Next Due INFLUENZA VACCINE, HIGH-DOSE [...] drink = 0.6 oz pur e alcohol) Comments No Sex and Gender Information Value Date Recorded Sex Assigned at Not on file Legal Sex Female 5:21 PM PERFECT BIND MACHINE OPERATOR Gender Identity Not on file Sexual Orientation Not on file Last Filed Vital Signs Vital Sign Reading Time Taken Comments Blood Pressure 117/65 08/29/2019 12:16 PM PERFECT BIND MACHINE OPERATOR Pulse 68 08/29/2019 12:16 PM PERFECT BIND MACHINE OPERATOR Temperature 37.1 C (98.7 F) 08/29/2019 12:16 PM PERFECT BIND MACHINE OPERATOR Respiratory Rate 20 08/29/2019 12:16 PM PERFECT BIND MACHINE OPERATOR Oxygen Saturation 100% 08/29/2019 12:16 PM PERFECT BIND MACHINE OPERATOR Inhaled Oxygen Concentration 97% 08/21/2019 1 1:23 PM PERFECT BIND MACHINE OPERATOR Weight 52.4 kg (115 lb 9.6 oz) 08/29/2019 4:00 A M PERFECT BIND MACHINE OPERATOR Height 167.6 cm (5' 6 ) 08/26/2019 10:39 PM PERFECT BIND MACHINE OPERATOR Body Mass Index 18.66 08/26/2019 10:39 PM PERFECT BIND MACHINE OPERATOR Plan of Treatment Health Maintenance Due Date Last Done Comments BONE DENSITY TESTING 1955 COLOGUARD (AGES 45-75) - COL ON CA SCREENING 1955 COLON MONITORING 1955 COLONOSCOPY - COLON CA SCREENING 1955 CT COLONOGRAPHY - COLON CA SCREENING 1955 Colorectal Cancer Screening 1955 FIT - COLON CA SCREENING 1955 FLEX SIG - COLON CA SCREENING 1955 MAMMOGRAM 1955 HEPATITIS C SCREENING 04/03/1973 DTAP/TDAP/TD VACCINES (1 - Tdap) 1974 PNEUMOCOCCAL VACCINE 50+ (1 of 2 - PCV) 1974 ZOSTER VACCINE (1 of 2) 2005 LIPID TESTING 09/11/2023 09/11/2018 COVID-19 VACCINE (1 - 2023-2 5 season) 2024 DEPRESSION SCREENING 09/09/2024 INFLUENZA VACCINE (Season Ended) 2025 07/05/2020, 08/22/2019, 07/14/2018 Respiratory Syncytial Virus (RSV) Vaccine Pt: or [...] complete this topic MENINGOCOCCAL (Group B) VACCINE SHARED DECISION-MAKING Aged Out No longer eligible based on patient's age to complete this topic MENINGOCOCCAL GROUPS A/C/Y/W VACCINE Aged Out No longer eligible b ased on patient's age to complete this topic Insurance AETNA AETNA AETNA AETNA AETNA AETNA Advance Directives * Full Code (Latest Code Status on File) Date Activated Date Inactivated Comments 08/26/2019 11:04 PM 08/29/2019 3:48 PM * Full Code Date Activated Date Inactivated Comments 08/21/2019 10:38 PM 08/22/2019 5:18 PM * Full Code Date Activated Date Inactivated Comments 07/30/2019 2:58 PM 08/03/2019 2:32 PM Care Teams Transportation Sales Consultant Relationship Specialty Start Date End Date Julian Jenkins DO PCP - General 10/13/13
--- OUTSIDE RECORDS SUMMARY | 2025-01-12 14:13 | XMS_ITS | Clinical Summary ---
Author Organization [facility] [address] Address [address] [place] [address] Care Team Providers Care Curtain Cutter Name Role Phone Julian Jenkins DO Primary Care Provider [phone] Lillian Onofre MD Unavailable [phone] Judith Goins MD Unavailable [phone] Allergies Active Allergy Reactions Criticality Noted Date [...] contractions) 09/11 Anxiety 09/11/2018 Raynaud's phenomenon 09/11/2018 Surgical History Surgery Date Site/Laterality Comments HYSTERECTOMY 09/09/2005 - 09/08/2006 Hysterectomy HERNIA REPAIR 09/09/1961 - 09/08/1962 ORIF WRIST FRACTURE 09/09/1969 - 09/08/1970 Right RECTOVAGINAL FISTULA CLOSURE 09/09/2018 - 09/08/2019 TONSILLECTOMY CATARACT EXTRACTION Right Medical History Medical History Date Comments Hx Other Medical rheumatoid arth ritis; Comments: [facility] 12/09/2015 - Hx Other Medical Raynauds; Comme nts: [facility] 12/09/2015 - Hx Other Medical tobacco use; Co mments: [facility] 12/09/2015 - Hypercholesteremia Hypertension GERD [...] Date Smoking Tobacco: Heavy Smoker Cigarettes 0.5 47.3 Started: 1977 Smokeless Tobacco: Never Tobacco Cessation:Ready [...] on file Legal Sex Female 3:55 AM SOCIAL SCIENCE MANAGER Gender Identity Not on file Sexual Orientation Not on file Obstetrics History Last Filed Vital Signs Vital Sign Reading Time Taken Comments Blood Pressure 121/74 08/03/2024 1:03 PM SOCIAL SCIENCE MANAGER Pulse 91 08/03/2024 1:03 PM SOCIAL SCIENCE MANAGER Temperature - - Respiratory Rate - - Oxygen Saturation 100% 08/03/2024 1:03 PM SOCIAL SCIENCE MANAGER Inhaled Oxygen Concentration - - Weight 49.3 kg (108 lb 9.6 oz) 08/03/2024 1:03 P M SOCIAL SCIENCE MANAGER Height 167.6 cm (5' 6 ) 09/11/2018 10:18 AM SOCIAL SCIENCE MANAGER Body Mass Index 17.53 09/11/2018 10:18 AM SOCIAL SCIENCE MANAGER Plan of Treatment Health Maintenance Due Date [...] 2 - PCV) 08/07/2023 08/07/2022 Covid-19 Vaccine (4 - 2023-2 5 season) 2024 07/25/2021, 12/08/2020, 11/17/2020 Fall Risk Assessment 08/03/2025 08/03/2024 Influenza Vaccine Completed 07/24/2024, , 08/22/2019, Additional [place] [address] AETNA [facility] HMO [facility] MEDICARE [facility] MEDICARE Care Teams Curtain Cutter Relationship Specialty Start Date End Date Julian Jenkins DO PCP - General 2/14/12 Lillian Onofre MD [address] [facility] [[email or web address] [address] [place] [address] Referring Physician Internal Medicine 07/23/24 Judith Goins MD [address] [address] Radiation Oncologist Radiation Oncology 07/23/24
--- OUTSIDE RECORDS SUMMARY | 2025-01-12 14:13 | XMS_ITS | Encounter Summary ---
Author Organization [facility] Health Address [address] [place] [address] Care Team Providers Care Personal Attendant Name Role Phone Julian Jenkins DO Primary Care Provider [phone] Encounter Details Date Type Department Care Team (Late st Contact Info) Description 07/28/2019 [facility] Outpatient Visit [facility] [address] [place] [address] Caleb Dent MD [address] [facility] [address] [place] [address] Social History Tobacco Use Types Packs/Day Years Used Date Smoking Tobacco: Every Day Cigarettes Smokeless Tobacco: Never Alcohol Use Standard Drinks/Week Comments Yes 4 (1 standard drink = 0.6 oz pur e alcohol) Comments No Sex and Gender Information Value Date Recorded Sex Assigned at Not on file Legal Sex Female 5:21 PM FLIGHT OPERATIONS SPECIALIST Gender Identity Not on file Sexual Orientation Not on file documented as of this encounter Plan of Treatment Not on file documented as of this encounter Visit Diagnoses Not on filedocumented in this encounter Care Teams Personal Attendant Relationship Specialty Start Date End Date Julian Jenkins DO PCP - General 10/13/13 documented as of this encounter
--- OUTSIDE RECORDS SUMMARY | 2025-01-12 14:13 | XMS_ITS | Referral Summary ---
Author Organization [facility] [address] Address [address] [place] [address] Care Team Providers Care Industrial Tractor Driver Name Role Phone Julian Jenkins DO Primary Care Provider [phone] Lillian Onofre MD Unavailable [phone] Judith Goins MD Unavailable [phone] Allergies Active Allergy Reactions Criticality Noted Date [...] on file Legal Sex Female 3:55 AM CUPOLA MELTER Gender Identity Not on file Sexual Orientation Not on file Last Filed Vital Signs Vital Sign Reading Time Taken Comments Blood Pressure 121/74 08/03/2024 1:03 PM CUPOLA MELTER Pulse 91 08/03/2024 1:03 PM CUPOLA MELTER Temperature - - Respiratory Rate - - Oxygen Saturation 100% 08/03/2024 1:03 PM CUPOLA MELTER Inhaled Oxygen Concentration - - Weight 49.3 kg (108 lb 9.6 oz) 08/03/2024 1:03 P M CUPOLA MELTER Height 167.6 cm (5' 6 ) 09/11/2018 10:18 AM CUPOLA MELTER Body Mass Index 17.53 09/11/2018 10:18 AM CUPOLA MELTER Plan of Treatment Not on file Insurance [facility] HMO AETNA MEDICARE [facility] MEDICARE Care Teams Industrial Tractor Driver Relationship Specialty Start Date End Date Julian Jenkins DO PCP - General 10/23/11 Lillian Onofre MD [address] [facility] [address] [place] [address] Referring Physician Internal Medicine 07/23/24 Judith Goins MD [address] [address] Radiation Oncologist Radiation Oncology 07/23/24
--- OUTSIDE RECORDS SUMMARY | 2025-01-12 14:13 | XMS_ITS | Clinical Summary ---
Author Organization [facility] Address [address] Attn: Epic Prelude ADT [place] [address] Care Team Providers Care Filler Room Attendant Name Role Phone Unavailable Primary Care Provider [...] 2) 2005 OSTEOPOROSIS SCREENING 2020 PNEUMOCOCCAL VACCINE 50+ YEA RS (2 of 2 - PCV) 08/07/2023 08/07/2022 RSV VACCINE (60+ or ) (1 - 1-dose 75+ series) 2030 INFLUENZA VACCINE Completed 07/24/2024, , 06/28/2022 Insurance RX AETNA Medicare Part D RX AETNA Medicare Part D
--- OUTSIDE RECORDS SUMMARY | 2025-01-12 14:13 | XMS_ITS | Encounter Summary ---
Author Organization [facility] Address [address] [place] [address] Care Team Providers Care Remote Coders Name Role Phone Benjy Reich MD Primary Care Provider [phone] Encounter Details Date Type Department Care Team (Latest Contact Info) Description 02/02/2022 [employer] Message Enc [facility] Medical [facility] [address] [address] [address] [place] [address] Maira, [facility] Provider Needs scheduled - Annual Physical Social [...] Total Score: 3 10/28/19 21 2:21 PM SMUDGER documented as of this encounter Care Teams Remote Coders Relationship Specialty Start Date End Date Benjy Reich MD [address] [place] [address] PCP - General INTERNAL MEDICINE 11/21/20 07/30/23 documented as of this encounter
--- OUTSIDE RECORDS SUMMARY | 2025-01-12 14:13 | XMS_ITS | Clinical Summary ---
Author Organization [facility] Address [address] [place] [address] Care Team Providers Care Body Shop Mechanic Name Role Phone Unavailable Primary Care Provider [...] obstruction ) ([facility]) 08/21/2019 10/31/2020 Post-operative state 07/30/2019 021 Sigmoid diverticulitis 07/30/201910/31 Palpitations 09/11/2018 10/31/2020 Immunizations Immunization Administration Dates Next Due Fluzone High Dose [...] Health Maintenance Due Date Last Done Comments DTaP, Tdap and Td Vaccines ( 1 - Tdap) 1974 Pneumococcal Vaccine: 50+ Years (1 of 2 - PCV) 1974 Zoster Vaccines (1 of 2) 2005 Annual Medicare Wellness Visit 2020 COVID-19 Vaccine (4 2023-2 5 season) 2024 07/25/2021, 12/08/2020, 11/17/2020 Mammogram Screening 06/07/2024 06/07/2022, 10/13/2020 Colorectal Cancer Screening Colonoscopy (10 Years) 01/09/2026 [...] A) NON-REACT GLYNN 01/21/2021 7:51 PM CDT [facility] Comment: PRESUMPTIVE EVIDENCE OF ANTIBODIES TO HCV. CONSIDER ORDERING HCV RNA DETECTION AND QUANTIFICATION BY RT-PCR ANALYSIS ON A NEW SPECIMEN. 01/20/2021 11:5 3 AM CDT us Benjy Reich MD LABORATORY Final Result [facility] [address] [place] [address], [id number] * BONE DENSITY GENERIC (12/30/2020) Anatomical Region Laterality Modality Other 12/30/2020 Narrative 12/30/2020 Ordered by an unspecified provider. us Documents Scanned SCANNING Final Result * COLONOSCOPY GENERIC (01/10/2016) 01/10/2016 Narrative 01/10/2016 Ordered by an unspecified provider. us Documents Scanned SCANNING Final Result from Last 3 Months or Most Recently Relevant to Health Maintenance Insurance AETNA
[2025-01-12 20:07] LABS: Alanine Aminotransferase 30 U/L (6-35); Albumin Level 4.5 g/dL (3.5-5.1); Alkaline Phosphatase 76 U/L (38-126); Anion Gap 11 mmol/L (4-12); Aspartate Amino Transferase 51 U/L (14-36); Bilirubin,Total 0.5 mg/dL (0.2-1.3); Blood Urea Nitrogen 22 mg/dL (7-17); Calcium 9.5 mg/dL (8.4-10.2); Carbon Dioxide 24 mmol/L (22-30); Chloride 103 mmol/L (98-107); Estimated Glomerular Filt Rate > 60; Glucose 102 mg/dL (65-110); Potassium 3.7 mmol/L (3.4-5.0); Sodium 138 mmol/L (137-145)
[2025-01-12 20:33] LABS: Free T4 Free Thyroxine 1.82 ng/dL (0.78-2.19)
[2025-01-12 20:44] LABS: Thyroid Stimulating Hormone < 0.015 uIU/mL (0.465-4.680)
[2025-01-12 21:53] LABS: Hepatitis C Virus Antibody Reactive (Negative)
[2025-01-15 14:28] LABS: Hepatitis C RNA, Quant PCR <15 NOT DETECTED IU/mL (NOT DETECTED)
== END 2025-01-12 14:09 | disposition home or self-care (01) ==
LOC: ANHGOSHLAB 14:09
PROVIDERS: Internal Medicine Rheumatology; PCP Internal Medicine; Visit Provider Internal Medicine Endocrinology, Diabetes & Metabolism
DX: E05.00 Thyrotoxicosis with diffuse goiter without thyrotoxic crisis or storm (principal); M06.9 Rheumatoid arthritis, unspecified; Z11.59 Encounter for screening for other viral diseases
CPT/HCPCS: 36415; 80053; 84439; 84443; 86803; 87522

== ENCOUNTER 2025-01-22 09:07 | Outpatient (CLI) | payer MEDICARE, SELFPAY ==
--- OUTSIDE RECORDS SUMMARY | 2025-01-22 09:20 | XMS_ITS | Clinical Summary ---
Author Organization [facility] Address [address] [place] [address] Care Team Providers Care Professor Of Communication And Writing Name Role Phone Julian Jenkins DO Primary Care Provider [phone]- [phone] Source Comments [facility],non-owned Affiliates and Associated Physician Practices is amultiple site organization consisting of ambulatory clinics and hospital sitesin [place], [place] and [place]. This disclosure is being madepursuant to the Care Everywhere program and may not contain all information available regarding this patient. Last updated 18.[facility] Allergies Active Allergy Reactions Criticality Noted Date [...] on file Legal Sex Female 5:21 PM MARKETING INTELLIGENCE ANALYST Gender Identity Not on file Sexual Orientation Not on file Last Filed Vital Signs Vital Sign Reading Time Taken Comments Blood Pressure 117/65 08/29/2019 12:16 PM MARKETING INTELLIGENCE ANALYST Pulse 68 08/29/2019 12:16 PM MARKETING INTELLIGENCE ANALYST Temperature 37.1 C (98.7 F) 08/29/2019 12:16 PM MARKETING INTELLIGENCE ANALYST Respiratory Rate 20 08/29/2019 12:16 PM MARKETING INTELLIGENCE ANALYST Oxygen Saturation 100% 08/29/2019 12:16 PM MARKETING INTELLIGENCE ANALYST Inhaled Oxygen Concentration 97% 08/21/2019 1 1:23 PM MARKETING INTELLIGENCE ANALYST Weight 52.4 kg (115 lb 9.6 oz) 08/29/2019 4:00 A M MARKETING INTELLIGENCE ANALYST Height 167.6 cm (5' 6 ) 08/26/2019 10:39 PM MARKETING INTELLIGENCE ANALYST Body Mass Index 18.66 08/26/2019 10:39 PM MARKETING INTELLIGENCE ANALYST Plan of Treatment Health Maintenance Due Date [...] 2:58 PM 08/03/2019 2:32 PM Care Teams Professor Of Communication And Writing Relationship Specialty Start Date End Date Julian Jenkins DO PCP - General 10/13/13
--- OUTSIDE RECORDS SUMMARY | 2025-01-22 09:20 | XMS_ITS | Clinical Summary ---
Author Organization [facility] Address [address] [facility] [address] Attn: Epic Prelude ADT [place] [address] Care Team Providers Care Communication Electronic Technician Name Role Phone Unavailable Primary Care Provider [...]
--- OUTSIDE RECORDS SUMMARY | 2025-01-22 09:20 | XMS_ITS | Encounter Summary ---
Author Organization [facility] Address [address] [place] [address] Care Team Providers Care Predatory Game Hunter Name Role Phone Julian Jenkins DO Primary Care Provider [phone] Encounter Details Date Type Department Care Team (Late st Contact Info) Description 07/28/2019 [facility] Outpatient Visit [facility] [address] [place] [address] Caleb Dent MD [address] [facility] [address] [place] [address] Social History Tobacco Use Types Packs/Day Years Used Date Smoking Tobacco: Every Day Cigarettes Smokeless Tobacco: Never Alcohol Use Standard Drinks/Week Comments Yes 4 (1 standard drink = 0.6 oz pur e alcohol) Comments No Sex and Gender Information Value Date Recorded Sex Assigned at Not on file Legal Sex Female 5:21 PM SONOGRAM TECHNICIAN Gender Identity Not on file Sexual Orientation Not on file documented as of this encounter Plan of Treatment Not on file documented as of this encounter Visit Diagnoses Not on filedocumented in this encounter Care Teams Predatory Game Hunter Relationship Specialty Start Date End Date Julian Jenkins DO PCP - General 10/13/13 documented as of this encounter
--- OUTSIDE RECORDS SUMMARY | 2025-01-22 09:21 | XMS_ITS | Clinical Summary ---
Author Organization [facility] [address] Address [address] [place] [address] Care Team Providers Care Blend Technician Name Role Phone Julian Jenkins DO Primary Care Provider [phone]- [phone] Lillian Onofre MD Unavailable [phone] Judith Goins MD Unavailable [phone] Allergies Active Allergy Reactions Criticality Noted Date [...] Hx Other Medical rheumatoid arth ritis; Comments: [facility] 12/09/2015 - Hx Other Medical Raynauds; Comme nts: [facility] 12/09/2015 - Hx Other Medical tobacco use; Co mments: [facility] 12/09/2015 - Hypercholesteremia Hypertension GERD (gastroesophageal reflux [...] Date Smoking Tobacco: Heavy Smoker Cigarettes 0.5 47.4 Started: 1977 Smokeless Tobacco: Never Tobacco Cessation:Ready [...] on file Legal Sex Female 3:55 AM PAIRER INSPECTOR Gender Identity Not on file Sexual Orientation Not on file Obstetrics History Last Filed Vital Signs Vital Sign Reading Time Taken Comments Blood Pressure 121/74 08/03/2024 1:03 PM PAIRER INSPECTOR Pulse 91 08/03/2024 1:03 PM PAIRER INSPECTOR Temperature - - Respiratory Rate - - Oxygen Saturation 100% 08/03/2024 1:03 PM PAIRER INSPECTOR Inhaled Oxygen Concentration - - Weight 49.3 kg (108 lb 9.6 oz) 08/03/2024 1:03 P M PAIRER INSPECTOR Height 167.6 cm (5' 6 ) 09/11/2018 10:18 AM PAIRER INSPECTOR Body Mass Index 17.53 09/11/2018 10:18 AM PAIRER INSPECTOR Plan of Treatment Health Maintenance Due Date [...] 07/24/2024, , 08/22/2019, Additional [place] [address] AETNA [facility] HMO [facility] MEDICARE [facility] MEDICARE Care Teams Blend Technician Relationship Specialty Start Date End Date Julian Jenkins DO PCP - General 2/14/12 Lillian Onofre MD [address] [facility] 1 [place] [address] Referring Physician Internal Medicine 07/23/24 Judith Goins MD [address] [address] Radiation Oncologist Radiation Oncology 07/23/24
--- OUTSIDE RECORDS SUMMARY | 2025-01-22 09:21 | XMS_ITS | Encounter Summary ---
Author Organization [facility] Address [address] [place] [address] Care Team Providers Care Hosiery Bagger Name Role Phone Benjy Reich MD Primary Care Provider [phone] Encounter Details Date Type Department Care Team (Latest Contact Info) Description 02/02/2022 aDealio Message Enc [facility] [place] [address] [address] [place] [address] Maira, [facility] Provider Needs scheduled - Annual Physical Social [...] Total Score: 3 10/28/19 21 2:21 PM WEB SPECIALIST documented as of this encounter Care Teams Hosiery Bagger Relationship Specialty Start Date End Date Benjy Reich MD [address] [facility] [address] [place] [address] PCP - General INTERNAL MEDICINE 11/21/20 07/30/23 documented as of this encounter
--- OUTSIDE RECORDS SUMMARY | 2025-01-22 09:21 | XMS_ITS | Referral Summary ---
Author Organization [facility] [address] Address [address] [place] [address] Care Team Providers Care Service Planner Name Role Phone Julian Jenkins DO Primary Care Provider [phone] Lillian Onofre MD Unavailable [phone] Judith Goins MD Unavailable [phone] Allergies Active Allergy Reactions Criticality Noted Date [...] on file Legal Sex Female 3:55 AM TECHNICAL AGRONOMIST Gender Identity Not on file Sexual Orientation Not on file Last Filed Vital Signs Vital Sign Reading Time Taken Comments Blood Pressure 121/74 08/03/2024 1:03 PM TECHNICAL AGRONOMIST Pulse 91 08/03/2024 1:03 PM TECHNICAL AGRONOMIST Temperature - - Respiratory Rate - - Oxygen Saturation 100% 08/03/2024 1:03 PM TECHNICAL AGRONOMIST Inhaled Oxygen Concentration - - Weight 49.3 kg (108 lb 9.6 oz) 08/03/2024 1:03 P M TECHNICAL AGRONOMIST Height 167.6 cm (5' 6 ) 09/11/2018 10:18 AM TECHNICAL AGRONOMIST Body Mass Index 17.53 09/11/2018 10:18 AM TECHNICAL AGRONOMIST Plan of Treatment Not on file Insurance [facility] HMO AETNA MEDICARE [facility] MEDICARE Care Teams Service Planner Relationship Specialty Start Date End Date Julian Jenkins DO PCP - General 10/23/11 iLllian Onofre MD [address] [facility] 1 [place] [address] Referring Physician Internal Medicine 07/23/24 Judith Goins MD [address] [address] Radiation Oncologist Radiation Oncology 07/23/24
--- OUTSIDE RECORDS SUMMARY | 2025-01-22 09:21 | XMS_ITS | Clinical Summary ---
Author Organization [facility] Address [address] [place] [address] Care Team Providers Care Dive Superintendent Name Role Phone Unavailable Primary Care Provider [...] 10/31/19 21 SBO (small bowel obstruction ) ([facility]) 08/21/2019 10/31/2020 Post-operative state 07/30/2019 021 Sigmoid [...] A) NON-REACT GLYNN 01/21/2021 7:51 PM CDT [facility] Comment: PRESUMPTIVE EVIDENCE OF ANTIBODIES TO HCV. CONSIDER ORDERING HCV RNA DETECTION AND QUANTIFICATION BY RT-PCR ANALYSIS ON A NEW SPECIMEN. 01/20/2021 11:5 3 AM CDT us Benjy Reich MD LABORATORY Final Result [facility] [address] [place] [address], [id number] * BONE DENSITY GENERIC (12/30/2020) Anatomical Region Laterality Modality Other 12/30/2020 Narrative 12/30/2020 Ordered by an unspecified provider. us Documents Scanned SCANNING Final Result * COLONOSCOPY GENERIC (01/10/2016) 01/10/2016 Narrative 01/10/2016 Ordered by an unspecified provider. us Documents Scanned SCANNING Final Result from Last 3 Months or Most Recently Relevant to Health Maintenance Insurance AETNA
[2025-01-22 12:21] LABS: Basophils Absolute Auto 0.1 K/mm3 (0.0-0.1); Basophils Percent Auto 0.5 % (0.2-1.2); Eosinophils Absolute Auto 0.1 K/mm3 (0-0.3); Eosinophils Percent Auto 1.5 % (0-4.4); Hematocrit 39.4 % (37.0-47.0); Immature Granulocyte Absolute 0.04 K/mm3 (0.00-0.031); Immature Granulocyte Percent A 0.4 % (0-0.5); Lymphocytes Absolute Auto 2.08 K/mm3 (0.9-3.2); Lymphocytes Percent Auto 21.7 % (18.3-44.2); Mean Platelet Volume 12.4 fl (7.4-10.4); Monocytes Percent Auto 10.1 % (2.6-8.5); Neutrophils Absolute Auto 6.3 K/mm3 (1.3-6.7); Neutrophils Percent Auto 65.8 % (45.5-73.1); Platelet Count Result 205 k/mm3 (150-375); Red Blood Count 4.06 M/mm3 (4.2-5.4); Red Cell Distribution Width 13.3 % (11.5-14.5); White Blood Count 9.6 K/mm3 (4.5-10.0)
[2025-01-22 12:30] LABS: Cholesterol 148 mg/dL (0-200); HDL Direct 52 mg/dL; Triglycerides 68 mg/dL (<150)
[2025-01-22 12:40] LABS: LDL Cholesterol Direct 66 mg/dL
[2025-01-22 12:55] LABS: Vitamin D 25 Hydroxy 62.2 ng/mL
== END 2025-01-22 09:08 | disposition home or self-care (01) ==
PROVIDERS: PCP Internal Medicine; Visit Provider Nurse Practitioner
DX: R79.89 Other specified abnormal findings of blood chemistry (principal); I10 Essential (primary) hypertension; E78.5 Hyperlipidemia, unspecified
CPT/HCPCS: 36415; 80061; 82306; 85025

== ENCOUNTER 2025-02-10 12:05 | Outpatient (CLI) | payer MEDICARE, SELFPAY ==
--- NOTE | ~2025-02-10 | DEXA_ITS ---
Bone Density Report Name: SHANTELL GREEN Age: 69 Sex: Female Ethnicity: White Date of : 1955 Indication: postmenopausal osteoporosis; height loss; inflammatory bowel disease; prior fracture; hysterectomy; rheumatoid arthritis; Referring Provider: NIKITA MERCADO Study: Bone densitometry was performed. Exam Date: February 10, 2025 Accession number: [id number] Bone Density: Region BMD T-score Z-score Classification AP Spine(L1-L4) 0.883 -1.5 0.6 Osteopenia Femoral Neck (Left) 0.563 -2.6 -0.8 Osteoporosis Total Hip (Left) 0.651 -2.4 -0.9 Osteopenia Femoral Neck (Right) 0.593 -2.3 -0.5 Osteopenia Total Hip (Right) 0.623 -2.6 -1.1 Osteoporosis Total Hip Mean 0.637 -2.5 -1.0 Osteoporosis World Health Organization criteria for BMD impression classify patients as: Normal (T-score at or above -1.0), Osteopenia (T-score between -1.0 and -2.5), or Osteoporosis (T-score at or below -2.5). 10-year Fracture Risk: FRAX not reported because: Some T-score for Spine Total or Hip Total or Femoral Neck at or below -2.5 Previous Exams: Region Exam Age BMD T-score BMD Change BMD Change Date g/cm2 vs Baseline vs Previous AP Spine (L1-L4) 02/10/2025 69 0.883 -1.5 0.053 (6.4%)* 0.053 (6.4%)* 08/04/2018 63 0.830 -2.0 Total Hip(Left) 02/10/2025 69 0.651 -2.4 0.012 (1.9%) 0.021 (3.3%) 01/11/2023 67 0.630 -2.6 -0.008 (-1.3%) 0.029 (4.8%)* 12/30/2020 65 0.601 -2.8 -0.037 (-5.8%) -0.037 (-5.8%) 08/04/2018 63 0.639 -2.5 Total Hip(Right) 02/10/2025 69 0.623 -2.6 -0.030 (-4.6%) -0.032 (-4.9%) 01/11/2023 67 0.655 -2.4 0.002 (0.3%) 0.042 (6.9%)* 12/30/2020 65 0.613 -2.7 -0.040 (-6.2%) -0.040 (-6.2%) 08/04/2018 63 0.653 -2.4 *Denotes significance at 95% confidence level, LSC for AP Spine = 0.022 g/cm2, LSC for Total Hip = 0.027 g/cm2 Clinical Information Provided by Patient: Has had a low trauma fracture Smokes Has rheumatoid arthritis Has 3 or more alcoholic drinks per day Has used the following medications: Boniva (i.e. ibandronate), Prolia (i.e. denosumab) Has the following medical conditions: Inflammatory bowel diseases, Hysterectomy Patient maximum height was 66.5 Menopause Age: 51 Drinks caffeinated beverages Onset of menses at age 10 Number of children 0 Impression: The patient has established osteoporosis, based on the Right Total Hip T-score and the existence of a prior fracture. The patient has risk factors, including: smoking, excessive alcohol use, previous fracture. The BMD for the Total Hip(Right) decreased, changing by -4.9% since the last DXA exam. Discussion: HIGH RISK OF FRACTURE. BONE DENSITY IS UNDESIRABLY LOW AT ONE OR MORE SKELETAL SITES, CONSISTENT WITH POSTMENOPAUSAL OSTEOPOROSIS. This patient's lowest T-score, in a patient who has previously fractured, meets the World Health Organization's (WHO) criteria for severe osteoporosis. In untreated patients, the risk of osteoporotic fracture increases approximately two-fold for each 1.0 SD decrease in T-score. Low bone density is not the only risk factor for fracture; also consider factors such as patient's age, frailty or poor health, risk of falling, risk of injury, previous osteoporotic fracture, family history of osteoporosis, cigarette smoking, low body weight, etc. Not everyone with low bone mineral density has osteoporosis; osteomalacia and other metabolic bone disorders should also be considered. Patients who have osteoporosis should be evaluated for specific diseases and conditions (secondary causes) that may cause or contribute to bone loss. The [place] Association of Clinical Endocrinologists (AACE) and National Osteoporosis Foundation (NOF) recommend pharmacologic intervention for all postmenopausal women whose T-score is in this range. The patient should follow a healthful lifestyle (good nutrition with adequate calcium and vitamin D, and appropriate weight-bearing exercise). Follow-Up: Consider a repeat BMD and Vertebral Fracture Assessment (VFA) exam in 2 years or sooner if medically necessary, to reassess this patient's status. Reported by: ECTOR on 02/10/2025 12:44:00 PM. Reviewed, dictated and finalized at location A.
--- OUTSIDE RECORDS SUMMARY | 2025-02-10 12:11 | XMS_ITS | Clinical Summary ---
Author Organization [facility] [address] Address [address] [place] [address] Care Team Providers Care Director Of Bands Name Role Phone Julian Jenkins DO Primary Care Provider [phone] Lillian Onofre MD Unavailable [phone] Judith Goins MD Unavailable [phone] Allergies Active Allergy Reactions Criticality Noted Date [...] Hx Other Medical rheumatoid arth ritis; Comments: [facility] 12/09/2015 - Hx Other Medical Raynauds; Comme nts: [facility] 12/09/2015 - Hx Other Medical tobacco use; Co mments: [facility] 12/09/2015 - Hypercholesteremia Hypertension GERD (gastroesophageal [...] on file Legal Sex Female 3:55 AM INTEGRATION DEVELOPER Gender Identity Not on file Sexual Orientation Not on file Obstetrics History Last Filed Vital Signs Vital Sign Reading Time Taken Comments Blood Pressure 121/74 08/03/2024 1:03 PM INTEGRATION DEVELOPER Pulse 91 08/03/2024 1:03 PM INTEGRATION DEVELOPER Temperature - - Respiratory Rate - - Oxygen Saturation 100% 08/03/2024 1:03 PM INTEGRATION DEVELOPER Inhaled Oxygen Concentration - - Weight 49.3 kg (108 lb 9.6 oz) 08/03/2024 1:03 P M INTEGRATION DEVELOPER Height 167.6 cm (5' 6) 09/11/2018 10:18 AM INTEGRATION DEVELOPER Body Mass Index 17.53 09/11/2018 10:18 AM INTEGRATION DEVELOPER Plan of Treatment Health Maintenance Due Date [...] 07/24/2024, , 08/22/2019, [place] [address] AETNA [facility] HMO [facility] MEDICARE [facility] MEDIC[facility] Care Teams Director Of Bands Relationship Specialty Start Date End Date Julian Jenkins DO PCP - General 2/14/12 Lillian Onofre MD [address] [facility] [address] [place] [address] Referring Physician Internal Medicine 07/23/24 Judith Goins MD [address] [address] Radiation Oncologist Radiation Oncology 07/23/24
--- OUTSIDE RECORDS SUMMARY | 2025-02-10 12:11 | XMS_ITS | Clinical Summary ---
Author Organization [facility] Address [address] [facility] Attn: Epic Prelude ADT [place] [address] Care Team Providers Care Can Stacker Name Role Phone Unavailable Primary Care Provider [...]
--- OUTSIDE RECORDS SUMMARY | 2025-02-10 12:11 | XMS_ITS | Referral Summary ---
Author Organization [facility] [address] Address [address] [place] [address] Care Team Providers Care Plastics Repairer Name Role Phone Julian Jenkins DO Primary Care Provider [phone] Lillian Onofre MD Unavailable [phone] Judith Goins MD Unavailable [phone] Allergies Active Allergy Reactions Criticality Noted Date [...] on file Legal Sex Female 3:55 AM CAN CLOSING MACHINE TENDER Gender Identity Not on file Sexual Orientation Not on file Last Filed Vital Signs Vital Sign Reading Time Taken Comments Blood Pressure 121/74 08/03/2024 1:03 PM CAN CLOSING MACHINE TENDER Pulse 91 08/03/2024 1:03 PM CAN CLOSING MACHINE TENDER Temperature - - Respiratory Rate - - Oxygen Saturation 100% 08/03/2024 1:03 PM CAN CLOSING MACHINE TENDER Inhaled Oxygen Concentration - - Weight 49.3 kg (108 lb 9.6 oz) 08/03/2024 1:03 P M CAN CLOSING MACHINE TENDER Height 167.6 cm (5' 6) 09/11/2018 10:18 AM CAN CLOSING MACHINE TENDER Body Mass Index 17.53 09/11/2018 10:18 AM CAN CLOSING MACHINE TENDER Plan of Treatment Not on file Insurance [facility] HMO AETNA MEDICARE [facility] MEDICARE Care Teams Plastics Repairer Relationship Specialty Start Date End Date Julian Jenkins DO PCP - General 10/23/11 Lillian Onofre MD [address] [facility] 1 [place] [address] Referring Physician Internal Medicine 07/23/24 Judith Goins MD [address] [address] Radiation Oncologist Radiation Oncology 07/23/24
--- OUTSIDE RECORDS SUMMARY | 2025-02-10 12:11 | XMS_ITS | Encounter Summary ---
Author Organization [facility] Address [address] [place] [address] Care Team Providers Care Broach Grinder Name Role Phone Julian Jenkins DO Primary Care Provider [phone] Encounter Details Date Type Department Care Team (Late st Contact Info) Description 07/28/2019 [facility] Outpatient Visit [facility] [address] [place] [address] Caleb Dent MD [address] [facility] [address] [place] [address] Social History Tobacco Use Types Packs/Day Years Used Date Smoking Tobacco: Every Day Cigarettes Smokeless Tobacco: Never Alcohol Use Standard Drinks/Week Comments Yes 4 (1 standard drink = 0.6 oz pur e alcohol) Comments No Sex and Gender Information Value Date Recorded Sex Assigned at Not on file Legal Sex Female 5:21 PM FEED GRINDER Gender Identity Not on file Sexual Orientation Not on file documented as of this encounter Plan of Treatment Not on file documented as of this encounter Visit Diagnoses Not on filedocumented in this encounter Care Teams Broach Grinder Relationship Specialty Start Date End Date Julian Jenkins DO PCP - General 10/13/13 documented as of this encounter
--- OUTSIDE RECORDS SUMMARY | 2025-02-10 12:11 | XMS_ITS | Clinical Summary ---
Author Organization [facility] Address [address] [facility] [place] [address] Care Team Providers Care Pace Analyst Name Role Phone Julian Jenkins DO Primary Care Provider [phone]- [phone] Source Comments [facility],non-owned Affiliates and Associated Physician Practices is amultiple site organization consisting of ambulatory clinics and hospital sitesin [place], [place], [place] and [place]. This disclosure is being madepursuant to the Care Everywhere program and may not contain all information available regarding this patient. Last updated 18.[facility] Allergies Active Allergy Reactions Criticality Noted Date [...] on file Legal Sex Female 5:21 PM COMPLIANCE ATTORNEY Gender Identity Not on file Sexual Orientation Not on file Last Filed Vital Signs Vital Sign Reading Time Taken Comments Blood Pressure 117/65 08/29/2019 12:16 PM COMPLIANCE ATTORNEY Pulse 68 08/29/2019 12:16 PM COMPLIANCE ATTORNEY Temperature 37.1 C (98.7 F) 08/29/2019 12:16 PM COMPLIANCE ATTORNEY Respiratory Rate 20 08/29/2019 12:16 PM COMPLIANCE ATTORNEY Oxygen Saturation 100% 08/29/2019 12:16 PM COMPLIANCE ATTORNEY Inhaled Oxygen Concentration 97% 08/21/2019 1 1:23 PM COMPLIANCE ATTORNEY Weight 52.4 kg (115 lb 9.6 oz) 08/29/2019 4:00 A M COMPLIANCE ATTORNEY Height 167.6 cm (5' 6) 08/26/2019 10:39 PM COMPLIANCE ATTORNEY Body Mass Index 18.66 08/26/2019 10:39 PM COMPLIANCE ATTORNEY Plan of Treatment Health Maintenance Due Date [...] 2:58 PM 08/03/2019 2:32 PM Care Teams Pace Analyst Relationship Specialty Start Date End Date Julian Jenkins DO PCP - General 10/13/13
== END 2025-02-10 12:06 | disposition home or self-care (01) ==
LOC: ANHIMG 12:09
PROVIDERS: PCP Internal Medicine; Visit Provider Internal Medicine Endocrinology, Diabetes & Metabolism
DX: M81.0 Age-related osteoporosis without current pathological fracture (principal); M85.89 Other specified disorders of bone density and structure, multiple sites
CPT/HCPCS: 77080

== ENCOUNTER 2025-03-08 13:38 | Outpatient (CLI) | payer MEDICARE, SELFPAY ==
--- OUTSIDE RECORDS SUMMARY | 2025-03-08 13:58 | XMS_ITS | Referral Summary ---
Author Organization [facility] [address] Address [address] [place] [address] Care Team Providers Care Weight Reducing Technician Name Role Phone Julian Jenkins DO Primary Care Provider [phone]- [phone] Lillian Onofre MD Unavailable [phone] Judith Goins MD Unavailable [phone] Allergies Active Allergy Reactions Criticality Noted Date [...] Date Smoking Tobacco: Heavy Smoker Cigarettes 0.5 47.5 Started: 1977 Smokeless Tobacco: Never Tobacco Cessation:Ready [...] on file Legal Sex Female 3:55 AM CONVERTING SUPERVISOR Gender Identity Not on file Sexual Orientation Not on file Last Filed Vital Signs Vital Sign Reading Time Taken Comments Blood Pressure 121/74 08/03/2024 1:03 PM CONVERTING SUPERVISOR Pulse 91 08/03/2024 1:03 PM CONVERTING SUPERVISOR Temperature - - Respiratory Rate - - Oxygen Saturation 100% 08/03/2024 1:03 PM CONVERTING SUPERVISOR Inhaled Oxygen Concentration - - Weight 49.3 kg (108 lb 9.6 oz) 08/03/2024 1:03 P M CONVERTING SUPERVISOR Height 167.6 cm (5' 6) 09/11/2018 10:18 AM CONVERTING SUPERVISOR Body Mass Index 17.53 09/11/2018 10:18 AM CONVERTING SUPERVISOR Plan of Treatment Not on file Insurance [facility] HMO AETNA MEDICARE [facility] MEDICARE Care Teams Weight Reducing Technician Relationship Specialty Start Date End Date Julian Jenkins DO PCP - General 10/23/11 Lillian Onofre MD [address] [facility] [address] [place] [address] Referring Physician Internal Medicine 07/23/24 Judith Goins MD [address] [address] Radiation Oncologist Radiation Oncology 07/23/24
--- OUTSIDE RECORDS SUMMARY | 2025-03-08 13:58 | XMS_ITS | Clinical Summary ---
Author Organization [facility] Address [address] [facility] [place] [address] Care Team Providers Care Returns Supervisor Name Role Phone Julian Jenkins DO Primary Care Provider [phone] Source Comments [facility],non-owned Affiliates and Associated Physician Practices is amultiple site organization consisting of ambulatory clinics and hospital sitesin [place], [place], [place] and [place]. This disclosure is being madepursuant to the Care Everywhere program and may not contain all information available regarding this patient. Last updated 18.[facility] Allergies Active Allergy Reactions Criticality Noted Date [...] on file Legal Sex Female 5:21 PM WEB DEVELOPMENT CONSULTANT Gender Identity Not on file Sexual Orientation Not on file Last Filed Vital Signs Vital Sign Reading Time Taken Comments Blood Pressure 117/65 08/29/2019 12:16 PM WEB DEVELOPMENT CONSULTANT Pulse 68 08/29/2019 12:16 PM WEB DEVELOPMENT CONSULTANT Temperature 37.1 C (98.7 F) 08/29/2019 12:16 PM WEB DEVELOPMENT CONSULTANT Respiratory Rate 20 08/29/2019 12:16 PM WEB DEVELOPMENT CONSULTANT Oxygen Saturation 100% 08/29/2019 12:16 PM WEB DEVELOPMENT CONSULTANT Inhaled Oxygen Concentration 97% 08/21/2019 1 1:23 PM WEB DEVELOPMENT CONSULTANT Weight 52.4 kg (115 lb 9.6 oz) 08/29/2019 4:00 A M WEB DEVELOPMENT CONSULTANT Height 167.6 cm (5' 6) 08/26/2019 10:39 PM WEB DEVELOPMENT CONSULTANT Body Mass Index 18.66 08/26/2019 10:39 PM WEB DEVELOPMENT CONSULTANT Plan of Treatment Health Maintenance Due Date [...] 2:58 PM 08/03/2019 2:32 PM Care Teams Returns Supervisor Relationship Specialty Start Date End Date Julian Jenkins DO PCP - General 10/13/13
--- OUTSIDE RECORDS SUMMARY | 2025-03-08 13:58 | XMS_ITS | Encounter Summary ---
Author Organization [facility] Health Address [address] [place] [address] Care Team Providers Care Small Products Ii Assembler Name Role Phone Julian Jenkins DO Primary Care Provider [phone] Encounter Details Date Type Department Care Team (Late st Contact Info) Description 07/28/2019 [facility] Outpatient Visit [facility] [address] [place] [address] Caleb Dent MD [address] [facility] [address] [place] [address] Social History Tobacco Use Types Packs/Day Years Used Date Smoking Tobacco: Every Day Cigarettes Smokeless Tobacco: Never Alcohol Use Standard Drinks/Week Comments Yes 4 (1 standard drink = 0.6 oz pur e alcohol) Comments No Sex and Gender Information Value Date Recorded Sex Assigned at Not on file Legal Sex Female 5:21 PM PLANT SENIOR MANAGER Gender Identity Not on file Sexual Orientation Not on file documented as of this encounter Plan of Treatment Not on file documented as of this encounter Visit Diagnoses Not on filedocumented in this encounter Care Teams Small Products Ii Assembler Relationship Specialty Start Date End Date Julian Jenkins DO PCP - General 10/13/13 documented as of this encounter
--- OUTSIDE RECORDS SUMMARY | 2025-03-08 13:58 | XMS_ITS | Clinical Summary ---
Author Organization [facility] Address [address] [place] [address] Care Team Providers Care Mechanical Maintenance Foreman Name Role Phone Unavailable Primary Care Provider [...] 10/31/19 21 SBO (small bowel obstruction ) ([facility]) 08/21/2019 10/31/2020 Post-operative state 07/30/2019 021 Sigmoid [...] 10:58 AM CDT Height 168.9 cm (5' 6.5) 04/19/2021 10:58 AM CD T Body Mass [...] A) NON-REACT GLYNN 01/21/2021 7:51 PM CDT [facility] Comment: PRESUMPTIVE EVIDENCE OF ANTIBODIES TO HCV. CONSIDER ORDERING HCV RNA DETECTION AND QUANTIFICATION BY RT-PCR ANALYSIS ON A NEW SPECIMEN. 01/20/2021 11:5 3 AM CDT us Benjy Reich MD LABORATORY Final Result [facility] [address] [place] [address], [phone] * BONE DENSITY GENERIC (12/30/2020) Anatomical Region Laterality Modality Other 12/30/2020 Narrative 12/30/2020 Ordered by an unspecified provider. us Documents Scanned SCANNING Final Result * COLONOSCOPY GENERIC (01/10/2016) 01/10/2016 Narrative 01/10/2016 Ordered by an unspecified provider. us Documents Scanned SCANNING Final Result from Last 3 Months or Most Recently Relevant to Health Maintenance Insurance AETNA
--- OUTSIDE RECORDS SUMMARY | 2025-03-08 13:58 | XMS_ITS | Encounter Summary ---
Author Organization [facility] Address [address] [place] [address] Care Team Providers Care Mathematics Improvement Teacher Name Role Phone Benjy Reich MD Primary Care Provider [phone] Encounter Details Date Type Department Care Team (Latest Contact Info) Description 02/02/2022 EXFO Message Enc [facility] Medical Group Multispecialty Care - [place] [address] [address] [place] [address] [facility] Provider Needs scheduled - Annual Physical [...] Total Score: 3 10/28/19 21 2:21 PM EPOXY COATINGS INSTALLER documented as of this encounter Care Teams Mathematics Improvement Teacher Relationship Specialty Start Date End Date Benjy Reich MD [address] [facility] [address] [place] [address] PCP - General INTERNAL MEDICINE 11/21/20 07/30/23 documented as of this encounter
--- OUTSIDE RECORDS SUMMARY | 2025-03-08 13:58 | XMS_ITS | Clinical Summary ---
Author Organization [facility] Address [address] [facility] Attn: Epic Prelude ADT [place] [address] Care Team Providers Care Welfare Service Aide Name Role Phone Unavailable Primary Care Provider [...]
--- OUTSIDE RECORDS SUMMARY | 2025-03-08 13:58 | XMS_ITS | Clinical Summary ---
Author Organization [facility] [place] [address] Address [address] [place] [address] Care Team Providers Care Robotic Toy Inventor Name Role Phone Julian Jenkins DO Primary Care Provider [phone] Lillian Onofre MD Unavailable Judith Goins MD Unavailable [phone] Allergies Active Allergy Reactions Criticality Noted Date [...] Hx Other Medical rheumatoid arth ritis; Comments: [facility] 12/09/2015 - Hx Other Medical Raynauds; Comme nts: [facility] 12/09/2015 - Hx Other Medical tobacco use; Co mments: [facility] 12/09/2015 - Hypercholesteremia Hypertension GERD (gastroesophageal reflux [...] on file Legal Sex Female 3:55 AM HARDWARE ENGINEER Gender Identity Not on file Sexual Orientation Not on file Obstetrics History Last Filed Vital Signs Vital Sign Reading Time Taken Comments Blood Pressure 121/74 08/03/2024 1:03 PM HARDWARE ENGINEER Pulse 91 08/03/2024 1:03 PM HARDWARE ENGINEER Temperature - - Respiratory Rate - - Oxygen Saturation 100% 08/03/2024 1:03 PM HARDWARE ENGINEER Inhaled Oxygen Concentration - - Weight 49.3 kg (108 lb 9.6 oz) 08/03/2024 1:03 P M HARDWARE ENGINEER Height 167.6 cm (5' 6) 09/11/2018 10:18 AM HARDWARE ENGINEER Body Mass Index 17.53 09/11/2018 10:18 AM HARDWARE ENGINEER Plan of Treatment Health Maintenance Due Date [...] 07/24/2024, , 08/22/2019, Additional [place] [address] AETNA [facility] HMO [facility] MEDICARE [facility] MEDICARE Care Teams Robotic Toy Inventor Relationship Specialty Start Date End Date Julian Jenkins DO PCP - General 2/14/12 Lillian Onofre MD [address] [place] [address] Referring Physician Internal Medicine 07/23/24 Judith Goins MD [address] [address] Radiation Oncologist Radiation Oncology 07/23/24
[2025-03-08 18:35] LABS: INR 1.1; Prothrombin Time 14.1 Seconds (11.1-14.7)
[2025-03-08 18:53] LABS: Iron 47 ug/dL (37-170)
[2025-03-08 18:59] LABS: Alanine Aminotransferase 17 U/L (6-35); Albumin Level 4.1 g/dL (3.5-5.1); Alkaline Phosphatase 67 U/L (38-126); Aspartate Amino Transferase 36 U/L (14-36); Bilirubin,Total 0.6 mg/dL (0.2-1.3); Total Protein 7.1 g/dL (6.3-8.2)
[2025-03-08 19:03] LABS: Percent Iron Saturation 15 % (20-50)
[2025-03-08 19:13] LABS: Free T4 Free Thyroxine. 1.02 ng/dL (0.78-2.19)
[2025-03-08 19:14] LABS: Immunoglobulin G 959 mg/dL (700-1600)
[2025-03-08 19:26] LABS: Thyroid Stimulating Hormone 0.016 uIU/mL (0.465-4.680)
[2025-03-09 07:14] LABS: Ceruloplasmin. 29 mg/dL (14-48)
[2025-03-10 09:49] LABS: ANA Pattern Nuclear, Speckled; Anti Nuclear Antibody Pattern Nuclear, Nucleolar
[2025-03-11 23:53] LABS: Actin Antibody (IgG). <20 U (<20)
== END 2025-03-08 13:39 | disposition home or self-care (01) ==
PROVIDERS: Internal Medicine Endocrinology, Diabetes & Metabolism; PCP Internal Medicine; Visit Provider Nurse Practitioner
DX: K74.60 Unspecified cirrhosis of liver (principal); R74.8 Abnormal levels of other serum enzymes; E05.90 Thyrotoxicosis, unspecified without thyrotoxic crisis or storm
CPT/HCPCS: 36415; 80076; 81596; 82104; 82390; 82728; 82784; 83520; 83540; 83550; 84439; 84443; 85610; 86038; 86364; 86376

== ENCOUNTER 2025-03-19 13:54 | Outpatient (CLI) | payer MEDICARE, SELFPAY ==
--- NOTE | ~2025-03-19 | MM_ITS ---
EXAMINATION: MM screening mikayla BI w lul HISTORY: Screening TECHNIQUE: Craniocaudal and mediolateral oblique 3-D tomosynthesis images were obtained and synthetic 2-D images were generated. CAD analysis was submitted and interpreted. COMPARISON: Comparison to multiple prior studies sequentially, with oldest reviewed study dated 06/09. BREAST PARENCHYMAL COMPOSITION: Dense: The breasts are heterogeneously dense, which may obscure small masses FINDINGS: There are benign bilateral breast calcifications which are stable. There is no evidence of suspicious mass, calcification, or architectural distortion to suggest malignancy in either breast. T here has been no suspicious interval change. IMPRESSION: 1. No mammographic evidence of malignancy. 2. Recommend routine screening mammography in one year. Reviewed, dictated and finalized at location B.
--- OUTSIDE RECORDS SUMMARY | 2025-03-19 13:57 | XMS_ITS | Referral Summary ---
Author Organization [facility] [address] Address [address] [place] [address] Care Team Providers Care Electric Melt Operator Name Role Phone Julian Jenkins DO Primary Care Provider [phone] Lillian Onofre MD Unavailable [phone] Judith Goins MD Unavailable [phone] Allergies Active Allergy Reactions Criticality Noted Date [...] on file Legal Sex Female 3:55 AM MECHANICAL UNIT REPAIRER Gender Identity Not on file Sexual Orientation Not on file Last Filed Vital Signs Vital Sign Reading Time Taken Comments Blood Pressure 121/74 08/03/2024 1:03 PM MECHANICAL UNIT REPAIRER Pulse 91 08/03/2024 1:03 PM MECHANICAL UNIT REPAIRER Temperature - - Respiratory Rate - - Oxygen Saturation 100% 08/03/2024 1:03 PM MECHANICAL UNIT REPAIRER Inhaled Oxygen Concentration - - Weight 49.3 kg (108 lb 9.6 oz) 08/03/2024 1:03 P M MECHANICAL UNIT REPAIRER Height 167.6 cm (5' 6) 09/11/2018 10:18 AM MECHANICAL UNIT REPAIRER Body Mass Index 17.53 09/11/2018 10:18 AM MECHANICAL UNIT REPAIRER Plan of Treatment Not on file Insurance [facility] HMO AETNA MEDICARE [facility] Care Teams Electric Melt Operator Relationship Specialty Start Date End Date Julian Jenkins DO PCP - General 10/23/11 Lillian Onofre MD [address] [facility] [address] [place] [address] Referring Physician Internal Medicine 07/23/24 Judith Goins MD [address] [address] Radiation Oncologist Radiation Oncology 07/23/24
--- OUTSIDE RECORDS SUMMARY | 2025-03-19 13:57 | XMS_ITS | Clinical Summary ---
Author Organization [facility] Address [address] [facility] Attn: Epic Prelude ADT [place] [address] Care Team Providers Care Filler Blender Name Role Phone Unavailable Primary Care Provider [...] (2 of 2 - PCV) 08/07/2023 08/07/2022 INFLUENZA VACCINE (#1) 2025 , 07/12/2023, 06/28/2022 RSV VACCINE (60+ or ) (1 - 1-dose 75+ series) 2030 [place] [address] RX AETNA Medicare Part D RX AETNA Medicare Part D
--- OUTSIDE RECORDS SUMMARY | 2025-03-19 13:57 | XMS_ITS | Clinical Summary ---
Author Organization [facility] Address [address] [place] [address] Care Team Providers Care Application Development Intern Name Role Phone Unavailable Primary Care Provider [...] 10/31/19 21 SBO (small bowel obstruction ) ([facility]) 08/21/2019 10/31/2020 Post-operative state 07/30/2019 021 Sigmoid [...] A) NON-REACT GLYNN 01/21/2021 7:51 PM CDT [facility] Comment: PRESUMPTIVE EVIDENCE OF ANTIBODIES TO HCV. CONSIDER ORDERING HCV RNA DETECTION AND QUANTIFICATION BY RT-PCR ANALYSIS ON A NEW SPECIMEN. 01/20/2021 11:5 3 AM CDT us Benjy Reich MD LABORATORY Final Result [facility] [address] [place] [address], [phone] * BONE DENSITY GENERIC (12/30/2020) Anatomical Region Laterality Modality Other 12/30/2020 Narrative 12/30/2020 Ordered by an unspecified provider. us Documents Scanned SCANNING Final Result * COLONOSCOPY GENERIC (01/10/2016) 01/10/2016 Narrative 01/10/2016 Ordered by an unspecified provider. us Documents Scanned SCANNING Final Result from Last 3 Months or Most Recently Relevant to Health Maintenance Insurance AETNA
--- OUTSIDE RECORDS SUMMARY | 2025-03-19 13:57 | XMS_ITS | Encounter Summary ---
Author Organization [facility] Health Address [address] [place] [address] Care Team Providers Care Pantry Cook Name Role Phone Julian Jenkins DO Primary Care Provider [phone] Encounter Details Date Type Department Care Team (Late st Contact Info) Description 07/28/2019 [facility] Outpatient Visit [facility] [address] [place] [address] Caleb Dent MD [address] [facility] [address] [place] [address] Social History Tobacco Use Types Packs/Day Years Used Date Smoking Tobacco: Every Day Cigarettes Smokeless Tobacco: Never Alcohol Use Standard Drinks/Week Comments Yes 4 (1 standard drink = 0.6 oz pur e alcohol) Comments No Sex and Gender Information Value Date Recorded Sex Assigned at Not on file 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
--- OUTSIDE RECORDS SUMMARY | 2025-03-19 13:57 | XMS_ITS | Encounter Summary ---
Author Organization [facility] Address [address] [place] [address] Care Team Providers Care Web Content & Social Media Manager Name Role Phone Benjy Reich MD Primary Care Provider [phone] Encounter Details Date Type Department Care Team (Latest Contact Info) Description 02/02/2022 Unique Microguides Message Enc [facility] Medical Group Multispecialty Care - [address] [address] [address] [place] [address] Maira, [facility] Provider Needs scheduled - Annual Physical Social [...] Total Score: 3 10/28/19 21 2:21 PM MANAGER POLICY documented as of this encounter Care Teams Web Content & Social Media Manager Relationship Specialty Start Date End Date Benjy Reich MD [address] [facility] [address] [place] [address] PCP - General INTERNAL MEDICINE 11/21/20 07/30/23 documented as of this encounter
--- OUTSIDE RECORDS SUMMARY | 2025-03-19 13:57 | XMS_ITS | Clinical Summary ---
Author Organization [facility] [address] Address [address] [place] [address] Care Team Providers Care Lumpia Wrapper Maker Name Role Phone Julian Jenkins DO Primary Care Provider [phone] Lillian Onofre MD Unavailable [phone] Judith Goins MD Unavailable [phone] Allergies Active Allergy Reactions Criticality Noted Date [...] Hx Other Medical rheumatoid arth ritis; Comments: [facility] 12/09/2015 - Hx Other Medical Raynauds; Comme nts: [facility] 12/09/2015 - Hx Other Medical tobacco use; Co mments: [facility] 12/09/2015 - Hypercholesteremia Hypertension GERD [...] on file Legal Sex Female 3:55 AM MORTAR MIXER OPERATOR Gender Identity Not on file Sexual Orientation Not on file Obstetrics History Last Filed Vital Signs Vital Sign Reading Time Taken Comments Blood Pressure 121/74 08/03/2024 1:03 PM MORTAR MIXER OPERATOR Pulse 91 08/03/2024 1:03 PM MORTAR MIXER OPERATOR Temperature - - Respiratory Rate - - Oxygen Saturation 100% 08/03/2024 1:03 PM MORTAR MIXER OPERATOR Inhaled Oxygen Concentration - - Weight 49.3 kg (108 lb 9.6 oz) 08/03/2024 1:03 P M MORTAR MIXER OPERATOR Height 167.6 cm (5' 6) 09/11/2018 10:18 AM MORTAR MIXER OPERATOR Body Mass Index 17.53 09/11/2018 10:18 AM MORTAR MIXER OPERATOR Plan of Treatment Health Maintenance Due [...] 2023-2 5 season) 2024 07/25/2021, 12/08/2020, 11/17/2020 Influenza Vaccine (#1) 2025 , 07/05/2020, 08/22/2019, Additional history exists Fall Risk Assessment 08/03/2025 08/03/2024 [place] [address] AETNA [facility] HMO AETNA [facility]ICARE [facility] Care Teams Lumpia Wrapper Maker Relationship Specialty Start Date End Date Julian Jenkins DO PCP - General 10/23/11 Lillian Onofre MD [address] [facility] [place] [address] Referring Physician Internal Medicine 07/23/24 Judith Goins MD [address] [address] Radiation Oncologist Radiation Oncology 07/23/24
--- OUTSIDE RECORDS SUMMARY | 2025-03-19 13:57 | XMS_ITS | Clinical Summary ---
Author Organization [facility] Address [address] [facility] [place] [address] Care Team Providers Care Hammer Smith Name Role Phone Julian Jenkins DO Primary Care Provider [phone] Source Comments [facility],non-owned Affiliates and Associated Physician Practices is amultiple site organization consisting of ambulatory clinics and hospital sitesin [place], [place], [place] and [place]. This disclosure is being madepursuant to the Care Everywhere program and may not contain all information available regarding this patient. Last updated 18.[facility] Allergies Active Allergy Reactions Criticality Noted Date [...] on file Legal Sex Female 5:21 PM TRAUMA NURSE Gender Identity Not on file Sexual Orientation Not on file Last Filed Vital Signs Vital Sign Reading Time Taken Comments Blood Pressure 117/65 08/29/2019 12:16 PM TRAUMA NURSE Pulse 68 08/29/2019 12:16 PM TRAUMA NURSE Temperature 37.1 C (98.7 F) 08/29/2019 12:16 PM TRAUMA NURSE Respiratory Rate 20 08/29/2019 12:16 PM TRAUMA NURSE Oxygen Saturation 100% 08/29/2019 12:16 PM TRAUMA NURSE Inhaled Oxygen Concentration 97% 08/21/2019 1 1:23 PM TRAUMA NURSE Weight 52.4 kg (115 lb 9.6 oz) 08/29/2019 4:00 A M TRAUMA NURSE Height 167.6 cm (5' 6) 08/26/2019 10:39 PM TRAUMA NURSE Body Mass Index 18.66 08/26/2019 10:39 PM TRAUMA NURSE Plan of Treatment Health Maintenance Due Date [...] 2:58 PM 08/03/2019 2:32 PM Care Teams Hammer Smith Relationship Specialty Start Date End Date Julian Jenkins DO PCP - General 10/13/13
== END 2025-03-19 13:55 | disposition home or self-care (01) ==
LOC: ANHIMG 13:55
PROVIDERS: PCP Internal Medicine; Visit Provider Obstetrics & Gynecology Gynecology
DX: Z12.31 Encounter for screening mammogram for malignant neoplasm of breast (principal)
CPT/HCPCS: 77063; 77067

== ENCOUNTER 2025-04-05 00:15 | Day surgery (SDC) | payer MEDICARE, SELFPAY ==
[2025-03-23 12:45] VITALS: BMI 16.2
--- OUTSIDE RECORDS SUMMARY | 2025-04-05 00:18 | XMS_ITS | Encounter Summary ---
Author Organization [facility] Address [address] [place] [address] Care Team Providers Care Concrete Bucket Loader Name Role Phone Benjy Reich MD Primary Care Provider [phone] Encounter Details Date Type Department Care Team (Latest Contact Info) Description 02/02/2022 Doodle Message Enc [facility] Medical Group Multispecialty Care - [place] [address] [address] [address] [place] [address] Maira, [facility] Provider Needs scheduled - Annual [...] Total Score: 3 10/28/19 21 2:21 PM RATE CLERK PASSENGER documented as of this encounter Care Teams Concrete Bucket Loader Relationship Specialty Start Date End Date Benjy Reich MD [address] [facility] [address] [place] [address] PCP - General INTERNAL MEDICINE 11/21/20 07/30/23 documented as of this encounter
--- OUTSIDE RECORDS SUMMARY | 2025-04-05 00:18 | XMS_ITS | Clinical Summary ---
Author Organization [facility] Address [address] [facility] Attn: Epic Prelude ADT [place]OV[place] [address] Care Team Providers Care Middle School Pe Teacher Name Role Phone Unavailable Primary Care Provider Unavailabl e Encounters Date Type Department Care Team Description 03/24/2025 External Device Data [facility] ABSTRACTION Provider, Abstract from Last 3 Months Immunizations Immunization Administration Dates Next Due (PNEUMOVAX [...] (1 - 1-dose 75+ series) 2030 Insurance RX AETNA Medicare Part D RX AETNA Medicare Part D
--- OUTSIDE RECORDS SUMMARY | 2025-04-05 00:18 | XMS_ITS | Clinical Summary ---
Author Organization [facility] Address [address] [place] [address] Care Team Providers Care Monorail Car Operator Name Role Phone Unavailable Primary Care Provider [...] 10/31/19 21 SBO (small bowel obstruction ) ([facility] 08/21/2019 10/31/2020 Post-operative state 07/30/2019 [...] GLYNN 01/21/2021 7:51 PM CDT [facility] Comment: PRESUMPTIVE EVIDENCE OF ANTIBODIES TO HCV. CONSIDER ORDERING HCV RNA DETECTION AND QUANTIFICATION BY RT-PCR ANALYSIS ON A NEW SPECIMEN. 01/20/2021 11:5 3 AM CDT us Benjy Reich MD LABORATORY Final Result [facility] [address] [place] [address], [phone] * BONE DENSITY GENERIC (12/30/2020) Anatomical Region Laterality Modality Other 12/30/2020 Narrative 12/30/2020 Ordered by an unspecified provider. us Documents Scanned SCANNING Final Result * COLONOSCOPY GENERIC (01/10/2016) 01/10/2016 Narrative 01/10/2016 Ordered by an unspecified provider. us Documents Scanned SCANNING Final Result from Last 3 Months or Most Recently Relevant to Health Maintenance Insurance AETNA
--- OUTSIDE RECORDS SUMMARY | 2025-04-05 00:18 | XMS_ITS | Referral Summary ---
Author Organization [facility] [place] [address] Address [address] [place] [address] Care Team Providers Care Winter Sports Manager Name Role Phone Julian Jenkins DO Primary Care Provider [phone]- [phone] Lillian Onofre MD Unavailable [phone] Judith Goins MD Unavailable [phone] Allergies Active Allergy Reactions Criticality Noted Date [...] Date Smoking Tobacco: Heavy Smoker Cigarettes 0.5 47.6 Started: 1977 Smokeless Tobacco: Never Tobacco Cessation:Ready [...] on file Legal Sex Female 3:55 AM TOWNSHIP CLERK Gender Identity Not on file Sexual Orientation Not on file Last Filed Vital Signs Vital Sign Reading Time Taken Comments Blood Pressure 121/74 08/03/2024 1:03 PM TOWNSHIP CLERK Pulse 91 08/03/2024 1:03 PM TOWNSHIP CLERK Temperature - - Respiratory Rate - - Oxygen Saturation 100% 08/03/2024 1:03 PM TOWNSHIP CLERK Inhaled Oxygen Concentration - - Weight 49.3 kg (108 lb 9.6 oz) 08/03/2024 1:03 P M TOWNSHIP CLERK Height 167.6 cm (5' 6) 09/11/2018 10:18 AM TOWNSHIP CLERK Body Mass Index 17.53 09/11/2018 10:18 AM TOWNSHIP CLERK Plan of Treatment Not on file Insurance [facility] HMO [employer] MEDICARE [facility] MEDICARE Care Teams Winter Sports Manager Relationship Specialty Start Date End Date Julian Jenkins DO PCP - General 10/23/11 Lillian Onofre MD [address] [facility] [address] [place] [address] Referring Physician Internal Medicine 07/23/24 Judith Goins MD [address] [address] Radiation Oncologist Radiation Oncology 07/23/24
--- OUTSIDE RECORDS SUMMARY | 2025-04-05 00:18 | XMS_ITS | Clinical Summary ---
Author Organization [facility] [employer] Address [address] [facility] [place] [address] Care Team Providers Care Talkback Host Name Role Phone Julian Jenkins DO Primary Care Provider [phone] Source Comments [facility],non-owned Affiliates and Associated Physician Practices is amultiple site organization consisting of ambulatory clinics and hospital sitesin [place], [place], [place] and [place]. This disclosure is being madepursuant to the Care Everywhere program and may not contain all information available regarding this patient. Last updated 18.[facility] [employer] Allergies Active Allergy Reactions Criticality Noted Date [...] on file Legal Sex Female 5:21 PM SEASONAL GREENERY BUNDLER Gender Identity Not on file Sexual Orientation Not on file Last Filed Vital Signs Vital Sign Reading Time Taken Comments Blood Pressure 117/65 08/29/2019 12:16 PM SEASONAL GREENERY BUNDLER Pulse 68 08/29/2019 12:16 PM SEASONAL GREENERY BUNDLER Temperature 37.1 C (98.7 F) 08/29/2019 12:16 PM SEASONAL GREENERY BUNDLER Respiratory Rate 20 08/29/2019 12:16 PM SEASONAL GREENERY BUNDLER Oxygen Saturation 100% 08/29/2019 12:16 PM SEASONAL GREENERY BUNDLER Inhaled Oxygen Concentration 97% 08/21/2019 1 1:23 PM SEASONAL GREENERY BUNDLER Weight 52.4 kg (115 lb 9.6 oz) 08/29/2019 4:00 A M SEASONAL GREENERY BUNDLER Height 167.6 cm (5' 6) 08/26/2019 10:39 PM SEASONAL GREENERY BUNDLER Body Mass Index 18.66 08/26/2019 10:39 PM SEASONAL GREENERY BUNDLER Plan of Treatment Health Maintenance Due Date [...] season) 2024 DEPRESSION SCREENING 09/09/2024 INFLUENZA VACCINE (#1) 2025 0, 08/22/2019, 07/14/2018 Respiratory Syncytial Virus (RSV) Vaccine [...] 2:58 PM 08/03/2019 2:32 PM Care Teams Talkback Host Relationship Specialty Start Date End Date Julian Jenkins DO PCP - General 10/13/13
--- OUTSIDE RECORDS SUMMARY | 2025-04-05 00:18 | XMS_ITS | Clinical Summary ---
Author Organization [facility] [place] [address] Address [address] [place] [address] Care Team Providers Care Spring Repairer Helper Hand Name Role Phone Julian Jenkins DO Primary Care Provider [phone] Lillian Onofre MD Unavailable [phone] Judith Goins MD Unavailable [phone] Allergies Active Allergy Reactions Criticality Noted Date [...] on file Legal Sex Female 3:55 AM KILN HAND Gender Identity Not on file Sexual Orientation Not on file Obstetrics History Last Filed Vital Signs Vital Sign Reading Time Taken Comments Blood Pressure 121/74 08/03/2024 1:03 PM KILN HAND Pulse 91 08/03/2024 1:03 PM KILN HAND Temperature - - Respiratory Rate - - Oxygen Saturation 100% 08/03/2024 1:03 PM KILN HAND Inhaled Oxygen Concentration - - Weight 49.3 kg (108 lb 9.6 oz) 08/03/2024 1:03 P M KILN HAND Height 167.6 cm (5' 6) 09/11/2018 10:18 AM KILN HAND Body Mass Index 17.53 09/11/2018 10:18 AM KILN HAND Plan of Treatment Health Maintenance Due Date [...] exists Fall Risk Assessment 08/03/2025 08/03/2024 [place] [address] [facility] HMO AET[employer] MEDICARE [facility] MEDICARE Care Teams Spring Repairer Helper Hand Relationship Specialty Start Date End Date Julian Jenkins DO PCP - General 10/23/11 Lillian Onofre MD [address] [facility] [address] [place] [address] Referring Physician Internal Medicine 07/23/24 Judith Goins MD [address] [address] Radiation Oncologist Radiation Oncology 07/23/24
--- OUTSIDE RECORDS SUMMARY | 2025-04-05 00:18 | XMS_ITS | Encounter Summary ---
Author Organization [facility] Address [address] [place] [address] Care Team Providers Care Websphere Developer Name Role Phone Julian Jenkins DO Primary Care Provider [phone] Encounter Details Date Type Department Care Team (Late st Contact Info) Description 07/28/2019 [facility] Outpatient Visit [facility] [address] [place] [address] Caleb Dent MD [address] [facility] [address] [place] [address] Social History Tobacco Use Types Packs/Day Years Used Date Smoking Tobacco: Every Day Cigarettes Smokeless Tobacco: Never Alcohol Use Standard Drinks/Week Comments Yes 4 (1 standard drink = 0.6 oz pur e alcohol) Comments No Sex and Gender Information Value Date Recorded Sex Assigned at Not on file 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
[2025-04-05 07:45] VITALS: BP 118/82; PULSE 89; RESP 20; TEMP 37.2; O2SAT 96; BMI 16.8
[2025-04-05] MEDS: LACTATED RINGERS 1,000 ML 150 ML IV CONT (08:00)
--- NOTE | 2025-04-05 08:17 | P.PNAN_ITS ---
Anes - Initial Pre Proc Eval Procedure: Operation Date: 04/05/25 09:00 Proposed Procedures p Esophagogastroduodenoscopy - Lázaro Llamas MD Date/Time: 04/05/25 08:17 Surgeon: Lázaro Llamas MD Pre Op Diagnosis: Other dysphagia Patient Data Age: 69 Gender: F Height: 1.68 m Weight: 47.3 kg Last Vital Signs Temp 37.2 C 04/05/25 07:45 Pulse 89 04/05/25 07:45 Resp 20 04/05/25 07:45 BP 118/82 04/05/25 07:45 Pulse Ox 96 04/05/25 07:45 O2 Del Method Room Air 04/05/25 07:45 Allergies Allergy/AdvReac Type Severity Reaction Status Date / Time Penicillins Allergy Unknown Unknown Verified 04/05/25 07:42 sulfanilamide Allergy Unknown bladder Verified 04/05/25 07:42 incontinence metoprolol AdvReac Hypertensio Verified 04/05/25 07:42 n Home Medications ?Medication ?Instructions ?Recorded ?Confirmed ?Type alprazolam 0.25 mg tablet (Xanax) 0.25 mg PO DAILY PRN Anxiety 07/28/19 03/23/25 History loratadine 10 mg tablet (Claritin) 10 mg PO DAILY PRN Allergic 09/21/20 04/05/25 History Symptoms cholecalciferol (vitamin D3) 25 25 mcg PO DAILY 01/03/21 04/05/25 History mcg (1,000 unit) tablet calcium carbonate (Calcium 500) 1,000 mg PO DAILY 01/01/24 04/05/25 History albuterol sulfate 90 mcg/actuation 2 puff inhalation Q4H PRN 09/11/24 03/23/25 Rx aerosol inhaler (Ventolin HFA) shortness of breath or wheezing #18 grams lisinopril 20 See Rx Instructions .Route 12/07/24 04/05/25 Rx mg-hydrochlorothiazide 12.5 mg .COMPLEX #90 tabs tablet pantoprazole 40 mg tablet,delayed 40 mg PO QAM #30 tabs 01/18/25 04/05/25 Rx release (Protonix) simvastatin 10 mg tablet 10 mg PO DAILY #90 tabs 03/01/25 04/05/25 Rx ibandronate 150 mg tablet 150 mg PO MONTHLY #3 tabs 03/11/25 03/23/25 Rx methimazole 5 mg tablet 7.5 mg (1.5 x 5 mg) PO DAILY 3 03/11/25 04/05/25 Rx months #135 tabs Patient hx anesthesia problems: none Family hx anesthesia problems: none Results Review: All pre-operative results and documents have been reviewed as part of the pre- operative evaluation. [facility] Past Medical History Medical History Rectovaginal fistula Nicotine dependence GERD (gastroesophageal reflux disease) Hernia Raynaud's disease Rheumatoid arthritis Anxiety attack Hypertension Chronic pain Bacterial vaginosis Constipation Surgical History Surgical History History of colon resection 5 inches removed H/O: hysterectomy Total Family History Family History Sibling Family history of premature coronary heart disease Heart attack Mother Family history of alcoholism, Onset Age: 51 Patient's mother is Family history of liver disease Father Family history of malignant neoplasm of urinary bladder Patient's father is Other Family history of cardiovascular disease Family history of coronary artery disease Social History Social History Smoking packs per day: 0.5 Smoking cigarettes per day: 10.0 Years smoked: 30 Smoking pack-years: 15.00 Smoking status: Current every day smoker Tobacco type: cigarettes Alcohol intake: current Drinks per week: 2 Alcohol use details: Pt drinks 2 glasses of wine nightly. Substance use: current Substance use type: marijuana Other substance usage details: smokes marijuana daily Do You Feel Safe in your Home?: Yes Lack of Transportation: No Lack of Food: Never True Current Housing: I Have Housing Concerned About Future Housing: No Difficulty Paying Gas/Electric Bills: No Difficulty Paying for Meds: No Currently Unemployed: No Education: High School Diploma/GED Difficulty w/ Childcare or Family Care: No Living arrangements: with family Gender identity (if verbalized by the patient): Female Spiritual care concerns: No Anes - Eval Final PreProcedure Day of Procedure 04/05/25 08:17 Patient weight: cachectic Heart: regular rate and rhythm Lungs: decreased breath sounds and rhonchi Airway: Mallampati scale class II Neurological: alert and oriented Last oral intake: >/= 8 hours ASA classification: III Emergent: no Anesthetic plan: proceed Anesthesia type and monitoring: general GIVS and standard monitoring Results Review: All pre-operative results and documents have been reviewed as part of the pre- operative evaluation. Informed Consent: The patient's anesthetic plan and its attendant risks and benefits were discussed with the patient/family/POA. Questions were solicited and answers provided to the satisfaction of the patient/family/POA.
--- NOTE | 2025-04-05 08:38 | PM.HPGS ---
History of Present Illness History of Present Illness Consent: Risks, benefits, and alternatives have been discussed and questions answered. Patient agrees to proceed with procedure. Chief complaint: Other dysphagia Narrative: Ambar Gomes is a 69 year old female here for first EGD, gerd on ppi but recently with dysphagia. Review of Systems Review of Systems: All systems reviewed & are unremarkable except as noted in HPI and below PMFSH Past Medical History Medical History (Updated 04/05/25 @ 08:39 by Lázaro Llamas MD) Dysphagia Rectovaginal fistula Nicotine dependence GERD (gastroesophageal reflux disease) Hernia Raynaud's disease Rheumatoid arthritis Anxiety attack Hypertension Chronic pain Bacterial vaginosis Constipation Surgical History Surgical History History of colon resection 5 inches removed H/O: hysterectomy Total Family History Family History Sibling Family history of premature coronary heart disease Heart attack Mother Family history of alcoholism, Onset Age: 51 Patient's mother is Family history of liver disease Father Family history of malignant neoplasm of urinary bladder Patient's father is Other Family history of cardiovascular disease Family history of coronary artery disease Social History Social History Smoking packs per day: 0.5 Smoking cigarettes per day: 10.0 Years smoked: 30 Smoking pack-years: 15.00 Smoking status: Current every day smoker Tobacco type: cigarettes Alcohol intake: current Drinks per week: 2 Alcohol use details: Pt drinks 2 glasses of wine nightly. Substance use: current Substance use type: marijuana Other substance usage details: smokes marijuana daily Do You Feel Safe in your Home?: Yes Lack of Transportation: No Lack of Food: Never True Current Housing: I Have Housing Concerned About Future Housing: No Difficulty Paying Gas/Electric Bills: No Difficulty Paying for Meds: No Currently Unemployed: No Education: High School Diploma/GED Difficulty w/ Childcare or Family Care: No Living arrangements: with family Gender identity (if verbalized by the patient): Female Spiritual care concerns: No Meds Home Medications and Allergies Home Medications ?Medication ?Instructions ?Recorded ?Confirmed ?Type alprazolam 0.25 mg tablet (Xanax) 0.25 mg PO DAILY PRN Anxiety 11/19/19 07/15/25 History loratadine 10 mg tablet (Claritin) 10 mg PO DAILY PRN Allergic 09/21/20 04/05/25 History Symptoms cholecalciferol (vitamin D3) 25 25 mcg PO DAILY 01/03/21 04/05/25 History mcg (1,000 unit) tablet calcium carbonate (Calcium 500) 1,000 mg PO DAILY 01/01/24 04/05/25 History albuterol sulfate 90 mcg/actuation 2 puff inhalation Q4H PRN 09/11/24 03/23/25 Rx aerosol inhaler (Ventolin HFA) shortness of breath or wheezing #18 grams lisinopril 20 See Rx Instructions .Route 12/07/24 04/05/25 Rx mg-hydrochlorothiazide 12.5 mg .COMPLEX #90 tabs tablet pantoprazole 40 mg tablet,delayed 40 mg PO QAM #30 tabs 01/18/25 04/05/25 Rx release (Protonix) simvastatin 10 mg tablet 10 mg PO DAILY #90 tabs 03/01/25 04/05/25 Rx ibandronate 150 mg tablet 150 mg PO MONTHLY #3 tabs 03/11/25 03/23/25 Rx methimazole 5 mg tablet 7.5 mg (1.5 x 5 mg) PO DAILY 3 03/11/25 04/05/25 Rx months #135 tabs Allergies Allergy/AdvReac Type Severity Reaction Status Date / Time Penicillins Allergy Unknown Unknown Verified 04/05/25 07:42 sulfanilamide Allergy Unknown bladder Verified 04/05/25 07:42 incontinence metoprolol AdvReac Hypertensio Verified 04/05/25 07:42 n Vital Signs Vital Signs - 24 hr 04/05/25 07:45 Temperature 98.9 F Pulse Rate 89 Respiratory Rate 20 Blood Pressure 118/82 Pulse Oximetry 96 Oxygen Delivery Room Air Exam Const: General: comfortable and no acute distress HENMT: Face/Nose/Sinus: Normal nares present Eyes: General: appearance normal, both eyes and all related structures Neck: Neck: no JVD Resp: Auscultation: clear to auscultation bilaterally Cardio: Rate: regular rate Rhythm: regular rhythm GI: Inspection: non-distended GI Palp: Yes Soft to palpation Skin: General skin exam: normal color Neuro: Speech: normal speech Extrem: General: normal to inspection Psych: Mental Status: mental status grossly normal Assessment and Plan Assessment and plan (1) GERD (gastroesophageal reflux disease): Code(s): K21.9 - Gastro-esophageal reflux disease without esophagitis Status: Acute Assessment and Plan: egd (2) Dysphagia: Code(s): R13.10 - Dysphagia, unspecified Status: Acute
[2025-04-05] MEDS: BENZOCAINE (*SP) 60 ML SPRAY CAN (HURRICAINE) 1 SPRAY MUCOUS MEM (08:41)
--- NOTE | 2025-04-05 08:46 | S_PTH ---
PATIENT: Ambar Gomes AE LOC: [facility] Ortega#:[id number] AGE/SX: 69/F ROOM: RE04/05/[address]: Lázaro Llamas MD : 1955 BED: DIS: 04/05/2025 SPEC #: [id number] RECD: 04/05/25 09:03 STATUS: CAROLINE YIN #: [id number] ALLYSSA: 04/05/25 08:[address]: Lázaro Llamas DEPT: [facility] Surgical RECD BY: Temi Abdalla ENTERED: 04/05/25 09:03 SP TYPE: Surgical OTHR DR: Julian Jenkins DO Tissues: A - Esophageal Biopsy B - Gastric Biopsy Procedures: Hematoxylin and Eosin Stain Gross and Microscopic Level 4
[2025-04-05 08:47] VITALS: BP 112/70; PULSE 80; RESP 20; O2SAT 95
[2025-04-05 08:57] VITALS: BP 127/79; PULSE 87; RESP 20; O2SAT 96
[2025-04-05 09:07] VITALS: BP 124/70; PULSE 86; RESP 20; O2SAT 97
== END 2025-04-05 09:28 | disposition home or self-care (01) ==
PROVIDERS: PCP Internal Medicine; Referring Provider Nurse Practitioner; Visit Provider Internal Medicine Gastroenterology
PROC: 0DJ08ZZ Inspection of Upper Intestinal Tract, Via Natural or Artificial Opening Endoscopic (ICD-10-PCS; CPT 43239; principal; 2025-04-05 09:00)
DX: K21.9 Gastro-esophageal reflux disease without esophagitis (principal); K22.10 Ulcer of esophagus without bleeding; I10 Essential (primary) hypertension; I73.00 Raynaud's syndrome without gangrene; F41.9 Anxiety disorder, unspecified; G89.29 Other chronic pain; M06.9 Rheumatoid arthritis, unspecified; F17.210 Nicotine dependence, cigarettes, uncomplicated; F12.90 Cannabis use, unspecified, uncomplicated; Z79.51 Long term (current) use of inhaled steroids; Z79.83 Long term (current) use of bisphosphonates; Z98.890 Other specified postprocedural states; Z90.49 Acquired absence of other specified parts of digestive tract; Z87.19 Personal history of other diseases of the digestive system; Z80.52 Family history of malignant neoplasm of bladder; Z82.49 Family history of ischemic heart disease and other diseases of the circulatory system
CPT/HCPCS: 43239; 88305; J2003; J2704; J7120

== ENCOUNTER 2025-05-18 12:47 | Outpatient (CLI) | payer MEDICARE, SELFPAY ==
--- NOTE | 2025-05-18 12:54 | ECHO_ITS ---
Patient Info Name: Ambar Gomes Age: 70 years : 1955 Gender: Female Ht: 65 in Wt: 100 lbs BSA: 1.43 m2 HR: 90 bpm BP: 105 / 77 mmHg Heart Rhythm: Sinus Rhythm Technical Quality: Fair Exam Date: 05/18/2025 1:12 PM Patient Status: O Admit Date: 05/18/2025 Exam Type: CA echo doppler color flow Complete two-dimensional, color flow and Doppler transthoracic echocardiogram is performed. Real Estate Intern: Megan Clark Attending Provider: Paola Perez Summary 1. Complete two-dimensional, color flow and Doppler transthoracic echocardiogram is performed. 2. Left ventricular chamber dimension is normal. 3. Left ventricular systolic function is normal, estimated at 60-65. 4. There is mild concentric increased left ventricular wall thickness. 5. The left ventricular diastolic function is grade I diastolic dysfunction. 6. E/e' 22 is elevated. 7. Left atrial chamber dimension is mildly enlarged. 8. There is moderate aortic valve sclerosis. 9. The mitral valve has a moderately calcified annulus. 10. There is trace tricuspid valve regurgitation. 11. No pulmonary hypertension, estimated pulmonary arterial systolic pressure is 27 mmHg. Left Ventricle E/e' 22 is elevated. Left ventricular chamber dimension is normal. Left ventricular systolic function is normal, estimated at 60-65. There is mild concentric increased left ventricular wall thickness. The left ventricular diastolic function is grade I diastolic dysfunction. Right Ventricle Right ventricular chamber dimension is normal. Right ventricular systolic function is normal and with normal TAPSE 2.0 cm. Left Atria Left atrial chamber dimension is mildly enlarged. Right Atria Right atrial chamber dimension is normal. Aortic Valve The aortic valve is trileaflet. There is moderate aortic valve sclerosis. There is no aortic valve stenosis. There is no aortic valve regurgitation. Pulmonic Valve There is no pulmonic regurgitation. Mitral Valve The mitral valve has a moderately calcified annulus. There is no mitral valve stenosis. There is no mitral valve regurgitation. Tricuspid Valve There is trace tricuspid valve regurgitation. No pulmonary hypertension, estimated pulmonary arterial systolic pressure is 27 mmHg. Pericardium/Pleural There is no pericardial effusion. Inferior Vena Cava Normal inferior vena cava with >50% collapse upon inspiration consistent with normal right atrial pressure, 5 mmHg. Aorta The aortic root size at the sinus of Valsalva is normal. Left Ventricular Outflow Tract Name Value Normal LVOT 2D LVOT Diameter 2.0 cm LVOT Doppler LVOT Peak Velocity 136 cm/s LVOT Peak Gradient 7 mmHg LVOT Mean Gradient 3 mmHg LVOT VTI 23 cm LVOT VTI/AV VTI Ratio 0.7 LVOT Stroke Volume 70 ml LVOT CO 5.8 l/min LVOT CI 4.0 l/min/m2 Pulmonic Valve Name Value Normal RVOT Doppler RVOT Peak Velocity 65 cm/s RVOT Peak Gradient 2 mmHg PV Doppler PV Peak Velocity 101 cm/s PV Peak Gradient 4 mmHg Mitral Valve Name Value Normal MV Doppler MV Peak Gradient 12 mmHg MV Mean Gradient 6 mmHg MV Area (Cont Eq VTI) 2.1 cm2 MV Diastolic Function MV E Peak Velocity 114 cm/s MV A Peak Velocity 141 cm/s MV E/A 0.8 MV Decel Time (PW) 212 ms MV Annular TDI MV E/e' (Septal) 21.4 MV E/e' (Lateral) 24.7 MV E/e' (Average) 23.0 Tricuspid Valve Name Value Normal TV Regurgitation Doppler TR Peak Velocity 233 cm/s TR Peak Gradient 16 mmHg Estimated PAP/RSVP RA Pressure 5 mmHg <=5 PA Systolic Pressure 27 mmHg <36 RV Systolic Pressure 27 mmHg <36 TV Annular TDI TV Lateral Maryann s' Velocity 9.5 cm/s >=9.5 Aorta Name Value Normal Ascending Aorta Ao Root Diameter (MM) 3.0 cm Ao Root Diam Index (MM) 2.1 cm/m2 Aortic Valve Name Value Normal AV Doppler AV Peak Velocity 201 cm/s AV Peak Gradient 16 mmHg AV Mean Gradient 8 mmHg AV VTI 34 cm AV Area (Cont Eq VTI) 2.0 cm2 >=3.0 AV Area (Cont Eq Keaton) 2.1 cm2 AV DI (Keaton) 0.67 AV Regurgitation 2D LVOT Area 3.1 cm2 Ventricles Name Value Normal LV Dimensions 2D/MM IVS Diastolic Thickness (2D) 1.2 cm 0.6-1.0 LVID Diastole (2D) 3.2 cm 3.8-5.2 LVIW Diastolic Thickness (2D) 0.9 cm 0.6-0.9 LVID Systole (2D) 2.3 cm 2.2-3.5 LVOT Diameter 2.0 cm LV Mass (2D Cubed) 96.05 g 67.00-162.00 LV Mass Index (2D Cubed) 67 g/m2 43-95 Relative Wall Thickness (2D) 0.56 <=0.42 LV Fractional Shortening/Ejection Fraction 2D/MM LV Fractional Shortening (2D) 29 % 27-45 LV EF (2D Teichholz) 56 % LV Diastolic Volume (4C MOD) 42 ml LV EF (4C MOD) 55 % LV Diastolic Volume (2C MOD) 47 ml LV EF (2C MOD) 53 % LV Diastolic Volume (BP MOD) 45 ml 46-106 LV Diastolic Volume Index (BP MOD) 32 ml/m2 29-61 LV Systolic Volume (BP MOD) 21 ml 14-42 LV Systolic Volume Index (BP MOD) 14 ml/m2 8-24 LV EF (BP MOD) 54 % 54-74 LV Diastolic Length (4C) 6.0 cm LV Systolic Length (4C) 4.4 cm LV Stroke Volume (4C MOD) 23 ml Atria Name Value Normal LA Dimensions LA Dimension (MM) 3.1 cm 2.7-3.8 LA Volume (4C A-L) 55 ml LA Volume (BP A-L) 48 ml RA Dimensions RA Area (4C) 13.6 cm2 <=18.0 Report Signatures
--- OUTSIDE RECORDS SUMMARY | 2025-05-18 14:08 | XMS_ITS | Clinical Summary ---
Author Organization [facility] Address [address] [place] [address] Care Team Providers Care Wellfield Technician Name Role Phone Unavailable Primary Care [...] 10/31/19 21 SBO (small bowel obstruction ) ([facility]) 08/21/2019 10/31/2020 Post-operative state 07/30/2019 021 Sigmoid [...] 2) 2005 Annual Medicare Wellness Visit 2020 Mammogram Screening 06/07/2024 06/07/2022, 10/13/2020 COVID-19 Vaccine (2024-2 6 season) 2025 07/25/2021, 12/08/2020, 11/17/2020 Colorectal Cancer Screening Colonoscopy (10 Years) 01/09/2026 [...] A) NON-REACT GLYNN 01/21/2021 7:51 PM CDT [facility] Comment: PRESUMPTIVE EVIDENCE OF ANTIBODIES TO HCV. CONSIDER ORDERING HCV RNA DETECTION AND QUANTIFICATION BY RT-PCR ANALYSIS ON A NEW SPECIMEN. 01/20/2021 11:5 3 AM CDT us Benjy Reich MD LABORATORY Final Result [facility] [address] [place] [address], [id number] * BONE DENSITY GENERIC (12/30/2020) Anatomical Region Laterality Modality Other 12/30/2020 Narrative 12/30/2020 Ordered by an unspecified provider. us Documents Scanned SCANNING Final Result * COLONOSCOPY GENERIC (01/10/2016) 01/10/2016 Narrative 01/10/2016 Ordered by an unspecified provider. us Documents Scanned SCANNING Final Result from Last 3 Months or Most Recently Relevant to Health Maintenance Insurance [employer]
--- OUTSIDE RECORDS SUMMARY | 2025-05-18 14:08 | XMS_ITS | Clinical Summary ---
Author Organization [facility] Address [address] [facility] [place] [address] Care Team Providers Care Edge Dyer Name Role Phone Julian Jenkins DO Primary Care Provider [phone] Source Comments [facility],non-owned Affiliates and Associated Physician Practices is amultiple site organization consisting of ambulatory clinics and hospital sitesin [place], [place], [place] and [place]. This disclosure is being madepursuant to the Care Everywhere program and may not contain all information available regarding this patient. Last updated 18.[facility] Allergies Active Allergy Reactions Criticality Noted Date [...] on file Legal Sex Female 5:21 PM SUPERVISOR ELEMENTARY EDUCATION Gender Identity Not on file Sexual Orientation Not on file Last Filed Vital Signs Vital Sign Reading Time Taken Comments Blood Pressure 117/65 08/29/2019 12:16 PM SUPERVISOR ELEMENTARY EDUCATION Pulse 68 08/29/2019 12:16 PM SUPERVISOR ELEMENTARY EDUCATION Temperature 37.1 C (98.7 F) 08/29/2019 12:16 PM SUPERVISOR ELEMENTARY EDUCATION Respiratory Rate 20 08/29/2019 12:16 PM SUPERVISOR ELEMENTARY EDUCATION Oxygen Saturation 100% 08/29/2019 12:16 PM SUPERVISOR ELEMENTARY EDUCATION Inhaled Oxygen Concentration 97% 08/21/2019 1 1:23 PM SUPERVISOR ELEMENTARY EDUCATION Weight 52.4 kg (115 lb 9.6 oz) 08/29/2019 4:00 A M SUPERVISOR ELEMENTARY EDUCATION Height 167.6 cm (5' 6) 08/26/2019 10:39 PM SUPERVISOR ELEMENTARY EDUCATION Body Mass Index 18.66 08/26/2019 10:39 PM SUPERVISOR ELEMENTARY EDUCATION Plan of Treatment Health Maintenance Due Date [...] of 2) 2005 LIPID TESTING 09/11/2023 09/11/2018 DEPRESSION SCREENING 09/09/2024 MEDICARE AWV CALENDAR YEAR 2024 COVID-19 VACCINE (1 - 2023-2 5 season) 2025 INFLUENZA VACCINE (#1) 2025 0, 08/22/2019, 07/14/2018 [...] to complete this topic Insurance AET[employer] AETNA MEDICARE ADV SELF PAY NO INSURANCE Member Subscriber Plan / Payer (Ef fective for All Dates) Name:Shantell Gomes Member ID:Not on file Relation to Subscriber:Not on file Name:MIREYASHANTELL Subscriber ID:Not on file (Home) Address: [address] [place] [id number] Payer ID:Not on file Group ID:Not on file Type:Self Pay Address: [place] [address] [employer] A[employer] AETNA AETNA Advance Directives * Full Code (Latest Code Status on File) Date Activated Date Inactivated Comments 08/26/2019 11:04 PM 08/29/2019 3:48 PM * Full Code Date Activated Date Inactivated Comments 08/21/2019 10:38 PM 08/22/2019 5:18 PM * Full Code Date Activated Date Inactivated Comments 07/30/2019 2:58 PM 08/03/2019 2:32 PM Care Teams Edge Dyer Relationship Specialty Start Date End Date Julian Jenkins DO PCP - General 10/13/13
--- OUTSIDE RECORDS SUMMARY | 2025-05-18 14:08 | XMS_ITS | Clinical Summary ---
Author Organization [facility] Address [address] [facility] Attn: Epic Prelude ADT LUCAS NOVAK [address] Care Team Providers Care Sea Foam Kiss Maker Name Role Phone Unavailable Primary Care Provider [...]
--- OUTSIDE RECORDS SUMMARY | 2025-05-18 14:08 | XMS_ITS | Encounter Summary ---
Author Organization [facility] Address [address] [place] [address] Care Team Providers Care Animal Husbandman Name Role Phone Julian Jenkins DO Primary Care Provider [phone] Encounter Details Date Type Department Care Team (Late st Contact Info) Description 07/28/2019 [facility] Outpatient Visit [facility] [address] [place] [address] Caleb Dent MD [address] [facility] [address] [place] [address] Social History Tobacco Use Types Packs/Day Years Used Date Smoking Tobacco: Every Day Cigarettes Smokeless Tobacco: Never Alcohol Use Standard Drinks/Week Comments Yes 4 (1 standard drink = 0.6 oz pur e alcohol) Comments No Sex and Gender Information Value Date Recorded Sex Assigned at Not on file Legal Sex Female 5:21 PM SPIRAL BINDER Gender Identity Not on file Sexual Orientation Not on file documented as of this encounter Plan of Treatment Not on file documented as of this encounter Visit Diagnoses Not on filedocumented in this encounter Care Teams Animal Husbandman Relationship Specialty Start Date End Date Julian Jenkins DO PCP - General 10/13/13 documented as of this encounter
--- OUTSIDE RECORDS SUMMARY | 2025-05-18 14:08 | XMS_ITS | Encounter Summary ---
Author Organization [facility] Address [address] [place] [address] Care Team Providers Care Artifacts Conservator Name Role Phone Benjy Reich MD Primary Care Provider [phone] Encounter Details Date Type Department Care Team (Latest Contact Info) Description 02/02/2022 [place] Message Enc [facility] [place] [address] [address] [place] [address] Maira, [facility] Provider Needs scheduled - Annual Physical Social [...] Total Score: 3 10/28/19 21 2:21 PM GLASS CALIBRATOR documented as of this encounter Care Teams Artifacts Conservator Relationship Specialty Start Date End Date Benjy Reich MD [address] [facility] [address] [place] [address] PCP - General INTERNAL MEDICINE 11/21/20 07/30/23 documented as of this encounter
--- OUTSIDE RECORDS SUMMARY | 2025-05-18 14:08 | XMS_ITS | Clinical Summary ---
Author Organization [facility] [place] [address] Address [address] [place] [address] Care Team Providers Care Fly Finisher Name Role Phone Julian Jenkins DO Primary Care Provider [phone] Lillian Onofre MD Unavailable [phone] Judith Goins MD Unavailable [phone] Allergies Active Allergy Reactions Criticality Noted Date [...] Hx Other Medical rheumatoid arth ritis; Comments: [facility] 12/09/2015 - Hx Other Medical Raynauds; Comme nts: [facility] 12/09/2015 - Hx Other Medical tobacco use; Co mments: [facility] 12/09/2015 - Hypercholesteremia Hypertension GERD (gastroesophageal [...] Date Smoking Tobacco: Heavy Smoker Cigarettes 0.5 47.7 Started: 1977 Smokeless Tobacco: Never Tobacco Cessation:Ready [...] on file Legal Sex Female 3:55 AM NURSING HOME ASSISTANT ADMINISTRATOR Gender Identity Not on file Sexual Orientation Not on file Obstetrics History Last Filed Vital Signs Vital Sign Reading Time Taken Comments Blood Pressure 121/74 08/03/2024 1:03 PM NURSING HOME ASSISTANT ADMINISTRATOR Pulse 91 08/03/2024 1:03 PM NURSING HOME ASSISTANT ADMINISTRATOR Temperature - - Respiratory Rate - - Oxygen Saturation 100% 08/03/2024 1:03 PM NURSING HOME ASSISTANT ADMINISTRATOR Inhaled Oxygen Concentration - - Weight 49.3 kg (108 lb 9.6 oz) 08/03/2024 1:03 P M NURSING HOME ASSISTANT ADMINISTRATOR Height 167.6 cm (5' 6) 09/11/2018 10:18 AM NURSING HOME ASSISTANT ADMINISTRATOR Body Mass Index 17.53 09/11/2018 10:18 AM NURSING HOME ASSISTANT ADMINISTRATOR Plan of Treatment Health Maintenance Due Date [...] PCV) 08/07/2023 08/07/2022 Covid-19 Vaccine (4 - 2024-2 6 season) 2025 07/25/2021, 12/08/2020, 11/17/2020 Influenza Vaccine (#1) 2025 , 07/05/2020, 08/22/2019, Additional history exists Fall Risk Assessment 08/03/2025 08/03/2024 [place] [address] AETNA [facility] HMO AETNA MEDICARE [facility] MEDICARE Care Teams Fly Finisher Relationship Specialty Start Date End Date Julian Jenkins DO PCP - General 10/23/11 Lillian Onofre MD [address] [facility] [address] [place] [address] Referring Physician Internal Medicine 07/23/24 Judith Goins MD [id number] [address] Radiation Oncologist Radiation Oncology 07/23/24
== END 2025-05-18 12:48 | disposition home or self-care (01) ==
PROVIDERS: PCP Internal Medicine; Visit Provider Nurse Practitioner
DX: R01.1 Cardiac murmur, unspecified (principal)
CPT/HCPCS: 93306

== ENCOUNTER 2025-07-26 14:42 | Outpatient (CLI) | payer MEDICARE, SELFPAY ==
[2025-07-26 18:46] LABS: Alanine Aminotransferase 13 U/L (6-35); Albumin Level 4.5 g/dL (3.5-5.1); Alkaline Phosphatase 71 U/L (38-126); Anion Gap 7 mmol/L (4-12); Aspartate Amino Transferase 33 U/L (14-36); Bilirubin,Total 0.5 mg/dL (0.2-1.3); Blood Urea Nitrogen 17 mg/dL (7-17); Calcium 10.2 mg/dL (8.4-10.2); Carbon Dioxide 30 mmol/L (22-30); Chloride 105 mmol/L (98-107); Estimated Glomerular Filt Rate > 60; Glucose 123 mg/dL (65-110); Potassium 3.5 mmol/L (3.4-5.0); Sodium 142 mmol/L (137-145); Total Protein 7.9 g/dL (6.3-8.2)
[2025-07-26 19:01] LABS: Free T4 Free Thyroxine 0.74 ng/dL (0.78-2.19)
[2025-07-26 19:22] LABS: Thyroid Stimulating Hormone 5.420 uIU/mL (0.465-4.680)
== END 2025-07-26 14:43 | disposition home or self-care (01) ==
LOC: ANHGOSHLAB 14:43
PROVIDERS: PCP Internal Medicine; Visit Provider Internal Medicine Endocrinology, Diabetes & Metabolism
DX: E05.90 Thyrotoxicosis, unspecified without thyrotoxic crisis or storm (principal); R74.8 Abnormal levels of other serum enzymes
CPT/HCPCS: 36415; 80053; 84439; 84443